=== PATIENT | female | born 1970 | race Caucasian/White ===

== ENCOUNTER 2022-11-19 13:34 | Emergency (ER) | payer OTHER, SELFPAY ==
[2022-11-19] VITALS (26 sets, daily range): BP systolic 74–144; BP diastolic 47–73; PULSE 90–110; RESP 15–27; TEMP 35.8; O2SAT 95–100; BMI 29.2
--- NOTE | 2022-11-19 13:59 | DI.RAD.S_ITS ---
PROCEDURE: XR CHEST 1V INDICATIONS: suspected sepsis TECHNIQUE: One view of the chest was acquired. COMPARISON: None. FINDINGS: Surgical changes and devices: None. Lungs and pleura: Lungs are clear. No pleural effusions or pneumothorax. Mediastinum: Mediastinal contours appear normal. Heart size is normal. Low lung volumes accentuate pulmonary interstitium and heart size. Bones and chest wall: No suspicious bony lesions. Overlying soft tissues appear unremarkable. IMPRESSION: No acute cardiopulmonary findings Approved by: Good Flores M.D. on 11/19/2022 at 14:03
[2022-11-19] MEDS: SODIUM CHLORIDE 0.9% 1,000 ML 1000 ML IV ×3 (14:00→15:36)
--- NOTE | 2022-11-19 14:10 | ED.SYNCOPE ---
HPI - Syncope General Chief Complaint: Weakness Stated Complaint: T2D, Dehydrated, Syncope 2x's Today Time Seen by Provider: 11/19/22 14:00 Source: patient Mode of arrival: Ambulatory Limitations: no limitations History of Present Illness HPI narrative: Patient is a 52-year-old female who has a history of diabetes new onset atrial fibrillation presenting today after syncopal episode. She was admitted last week for DKA in [place] she left prior to being discharged and had a syncopal episode today in the shower. She reports that she has been nauseous and has had significant decreased p.o. intake. She was in the shower she felt extremely lightheaded flushed and she knew she was going to pass out. She got out and fell down. Brief loss of consciousness. No nausea vomiting after. She denies any injury from the fall. No numbness tingling or weakness. She currently denies any chest pain or palpitations. She was supposed to have an appointment with her PCP today however due to her symptoms her PCP sent her to the emergency department. I did actually speak with her as well who has given me this information. Records have also been requested from her most recent hospitalization. is at bedside and he reports the brief loss of consciousness. She currently denies any fever or chills. Related Data Allergies Allergy/AdvReac Type Severity Reaction Status Date / Time No Known Drug Allergies Allergy Verified 11/19/22 13:40 Review of Systems Review of Systems ROS Unobtainable: All systems reviewed & are unremarkable except as noted in HPI and below Patient History Social History Smoking Status: Unknown if ever smoked Smoking Status: Unknown if ever smoked alcohol intake frequency: holidays/special occasions only Substance Use Type: does not use Exam Initial Vital Signs Initial Vital Signs: Vital Signs Temperature 96.5 F L 11/19/22 13:40 Pulse Rate 98 H 11/19/22 13:40 Respiratory Rate 16 11/19/22 13:40 Blood Pressure 75/48 L 11/19/22 13:40 Pulse Oximetry 100 11/19/22 13:40 Oxygen Delivery Method 11/19/22 13:40 GENERAL: Alert pleasant 52-year-old female and in no acute distress. HEENT: Head atraumatic,EOMI, pupils reactive, face symmetric, moist mucous membranes CARDIOVASCULAR: Regular rate and rhythm without murmurs, rubs or gallops. RESPIRATORY: Breath sounds equal bilaterally, no wheezes rales or rhonchi. ABDOMEN: Soft, nontender. Normoactive bowel sounds all 4 quadrants. No guarding or rebound. EXTREMITIES: Normal range of motion, no clubbing or edema. Neurovascularly intact NEUROLOGICAL: Alert and oriented x4.Normal gait and speech. Cranial nerves II through XII grossly intact. Good [id number], good [id number], strength equal bilaterally, no dysarthria or aphasia, sensation in tact to soft touch bilaterally, no visual changes, no facial droop SKIN: Warm, dry, no laceration, no petechiae, no rashes or lesions. Course Orders Ordered: ED Orders 11/19/22 13:51 VBG [Venous Blood Gas] Stat 11/19/22 13:59 XR chest 1V Stat RT Consult Eval and Treat NOW 11/19/22 14:07 EKG-12 Lead Stat 11/19/22 14:11 Covid-19 + FLU A/B + RSV - PCR Stat 11/19/22 14:15 Blood Culture Stat Complete Blood Count AUTO DIFF Stat Comprehensive Metabolic Panel Stat Ketones (Beta-Hydroxybutyrate) Stat Lactate (Lactic Acid) Stat Lipase Stat Partial Thromboplastin Time Stat Procalcitonin Stat Prothrombin Time INR Stat 11/19/22 14:27 CT head/brain wo con Stat 11/19/22 16:59 Urine Microscopic Stat Discontinued Medications Sodium Chloride (Normal Saline 0.9%) 1,000 mls @ 1,000 mls/hr IV BOLUS ONE Stop: 11/19/22 14:58 Last Infusion: 11/19/22 15:00 Dose: 0 mls/hr Documented By: Admin: 11/19/22 14:00 Dose: 1,000 mls/hr Documented By: CASIE Sodium Chloride (Normal Saline 0.9%) 1,000 mls @ 1,000 mls/hr IV BOLUS ONE Stop: 11/19/22 15:00 Last Infusion: 11/19/22 15:37 Dose: 0 mls/hr Documented By: Admin: 11/19/22 15:04 Dose: 1,000 mls/hr Documented By: CASIE Sodium Chloride (Normal Saline 0.9%) 1,000 mls @ 1,000 mls/hr IV BOLUS ONE Stop: 11/19/22 16:24 Last Infusion: 11/19/22 16:39 Dose: 0 mls/hr Documented By: Admin: 11/19/22 15:36 Dose: 1,000 mls/hr Documented By: CASIE Lactated Ringer's (Lactated Ringers) 1,000 mls @ 1,000 mls/hr IV BOLUS ONE Stop: 11/19/22 18:10 Last Infusion: 11/19/22 18:00 Dose: 0 mls/hr Documented By: Admin: 11/19/22 17:19 Dose: 1,000 mls/hr Documented By: CASIE Ondansetron HCl (Ondansetron 4 Mg/2 Ml Inj) 4 mg IV NOW PRN PRN Reason: Nausea And Vomiting Last Admin: 11/19/22 15:04 Dose: 4 mg Documented By: CASIE Vital Signs Vital signs: Vital Signs - 8 hr 11/19/22 13:40 11/19/22 14:00 11/19/22 14:03 Temperature 96.5 F L Pulse Rate 98 H Pulse Rate [Orthostatic Lying] Pulse Rate [Orthostatic Sitting] Pulse Rate [Orthostatic Standing] Respiratory Rate 16 Blood Pressure 75/48 L 102/73 Blood Pressure [Orthostatic Lying] Blood Pressure [Orthostatic Sitting] Blood Pressure [Orthostatic Standing] Pulse Oximetry 100 100 Oxygen Delivery Method Room Air Room Air 11/19/22 14:03 11/19/22 14:10 11/19/22 14:20 Temperature Pulse Rate 96 H 94 H Pulse Rate [Orthostatic Lying] Pulse Rate [Orthostatic Sitting] Pulse Rate [Orthostatic Standing] Respiratory Rate 22 21 Blood Pressure 74/49 L Blood Pressure [Orthostatic Lying] Blood Pressure [Orthostatic Sitting] Blood Pressure [Orthostatic Standing] Pulse Oximetry 95 100 Oxygen Delivery Method Room Air 11/19/22 14:20 11/19/22 14:24 11/19/22 14:24 Temperature Pulse Rate 93 H 90 Pulse Rate [Orthostatic Lying] Pulse Rate [Orthostatic Sitting] Pulse Rate [Orthostatic Standing] Respiratory Rate 15 21 Blood Pressure 83/51 L Blood Pressure [Orthostatic Lying] Blood Pressure [Orthostatic Sitting] Blood Pressure [Orthostatic Standing] Pulse Oximetry 99 100 Oxygen Delivery Method 11/19/22 14:25 11/19/22 14:25 11/19/22 14:28 Temperature Pulse Rate 92 H 92 H Pulse Rate [Orthostatic Lying] Pulse Rate [Orthostatic Sitting] Pulse Rate [Orthostatic Standing] Respiratory Rate 24 18 Blood Pressure 86/47 L Blood Pressure [Orthostatic Lying] Blood Pressure [Orthostatic Sitting] Blood Pressure [Orthostatic Standing] Pulse Oximetry 100 99 Oxygen Delivery Method 11/19/22 14:28 11/19/22 14:30 11/19/22 14:30 Temperature Pulse Rate 91 H Pulse Rate [Orthostatic Lying] Pulse Rate [Orthostatic Sitting] Pulse Rate [Orthostatic Standing] Respiratory Rate 20 Blood Pressure 89/51 L 89/54 L Blood Pressure [Orthostatic Lying] Blood Pressure [Orthostatic Sitting] Blood Pressure [Orthostatic Standing] Pulse Oximetry 99 Oxygen Delivery Method 11/19/22 14:32 11/19/22 14:32 11/19/22 14:40 Temperature Pulse Rate 90 Pulse Rate [Orthostatic Lying] Pulse Rate [Orthostatic Sitting] Pulse Rate [Orthostatic Standing] Respiratory Rate 19 Blood Pressure 92/55 L 95/56 L Blood Pressure [Orthostatic Lying] Blood Pressure [Orthostatic Sitting] Blood Pressure [Orthostatic Standing] Pulse Oximetry 99 Oxygen Delivery Method 11/19/22 14:40 11/19/22 14:53 11/19/22 14:55 Temperature Pulse Rate 92 H 96 H Pulse Rate [Orthostatic Lying] Pulse Rate [Orthostatic Sitting] Pulse Rate [Orthostatic Standing] Respiratory Rate 19 Blood Pressure 115/56 L Blood Pressure [Orthostatic Lying] Blood Pressure [Orthostatic Sitting] Blood Pressure [Orthostatic Standing] Pulse Oximetry 99 97 Oxygen Delivery Method 11/19/22 14:55 11/19/22 15:00 11/19/22 15:00 Temperature Pulse Rate 93 H 94 H Pulse Rate [Orthostatic Lying] Pulse Rate [Orthostatic Sitting] Pulse Rate [Orthostatic Standing] Respiratory Rate 17 22 Blood Pressure 110/57 L Blood Pressure [Orthostatic Lying] Blood Pressure [Orthostatic Sitting] Blood Pressure [Orthostatic Standing] Pulse Oximetry 100 100 Oxygen Delivery Method 11/19/22 15:10 11/19/22 15:10 11/19/22 15:20 Temperature Pulse Rate 95 H Pulse Rate [Orthostatic Lying] Pulse Rate [Orthostatic Sitting] Pulse Rate [Orthostatic Standing] Respiratory Rate 22 Blood Pressure 118/56 L 116/59 L Blood Pressure [Orthostatic Lying] Blood Pressure [Orthostatic Sitting] Blood Pressure [Orthostatic Standing] Pulse Oximetry 100 Oxygen Delivery Method Room Air 11/19/22 15:20 11/19/22 15:30 11/19/22 15:30 Temperature Pulse Rate 97 H 97 H Pulse Rate [Orthostatic Lying] Pulse Rate [Orthostatic Sitting] Pulse Rate [Orthostatic Standing] Respiratory Rate 17 18 Blood Pressure 116/60 Blood Pressure [Orthostatic Lying] Blood Pressure [Orthostatic Sitting] Blood Pressure [Orthostatic Standing] Pulse Oximetry 100 100 Oxygen Delivery Method Room Air Room Air 11/19/22 15:37 11/19/22 15:37 11/19/22 15:40 Temperature Pulse Rate 100 H Pulse Rate [Orthostatic Lying] Pulse Rate [Orthostatic Sitting] Pulse Rate [Orthostatic Standing] Respiratory Rate 20 Blood Pressure 111/60 104/55 L Blood Pressure [Orthostatic Lying] Blood Pressure [Orthostatic Sitting] Blood Pressure [Orthostatic Standing] Pulse Oximetry 100 Oxygen Delivery Method Room Air 11/19/22 15:40 11/19/22 15:50 11/19/22 15:50 Temperature Pulse Rate 98 H 100 H Pulse Rate [Orthostatic Lying] Pulse Rate [Orthostatic Sitting] Pulse Rate [Orthostatic Standing] Respiratory Rate 20 18 Blood Pressure 128/60 Blood Pressure [Orthostatic Lying] Blood Pressure [Orthostatic Sitting] Blood Pressure [Orthostatic Standing] Pulse Oximetry 100 98 Oxygen Delivery Method Room Air Room Air 11/19/22 16:00 11/19/22 16:00 11/19/22 16:30 Temperature Pulse Rate 101 H Pulse Rate [Orthostatic Lying] Pulse Rate [Orthostatic Sitting] Pulse Rate [Orthostatic Standing] Respiratory Rate 27 H Blood Pressure 130/64 125/65 Blood Pressure [Orthostatic Lying] Blood Pressure [Orthostatic Sitting] Blood Pressure [Orthostatic Standing] Pulse Oximetry 100 Oxygen Delivery Method Room Air 11/19/22 16:30 11/19/22 16:40 11/19/22 16:40 Temperature Pulse Rate 102 H 100 H Pulse Rate [Orthostatic Lying] Pulse Rate [Orthostatic Sitting] Pulse Rate [Orthostatic Standing] Respiratory Rate 18 18 Blood Pressure 113/60 Blood Pressure [Orthostatic Lying] Blood Pressure [Orthostatic Sitting] Blood Pressure [Orthostatic Standing] Pulse Oximetry 100 99 Oxygen Delivery Method Room Air 11/19/22 16:43 11/19/22 16:43 11/19/22 16:46 Temperature Pulse Rate 103 H Pulse Rate [Orthostatic Lying] Pulse Rate [Orthostatic Sitting] Pulse Rate [Orthostatic Standing] Respiratory Rate 17 Blood Pressure 110/58 L 93/52 L Blood Pressure [Orthostatic Lying] Blood Pressure [Orthostatic Sitting] Blood Pressure [Orthostatic Standing] Pulse Oximetry 100 Oxygen Delivery Method 11/19/22 16:46 11/19/22 18:06 Temperature Pulse Rate 108 H Pulse Rate [Orthostatic Lying] 103 H Pulse Rate [Orthostatic Sitting] 104 H Pulse Rate [Orthostatic Standing] 110 H Respiratory Rate 18 Blood Pressure Blood Pressure [Orthostatic Lying] 144/68 H Blood Pressure [Orthostatic Sitting] 128/67 Blood Pressure [Orthostatic Standing] 116/60 Pulse Oximetry 100 Oxygen Delivery Method MDM - Syncope Lab Data Result diagrams: 11/19/22 14:15 11/19/22 14:15 Labs: Lab Results 11/19/22 11/19/22 11/19/22 Range/Units 13:51 14:11 14:15 WBC 9.9 (4.5-11.0) X10^3/uL RBC 5.63 H (4.0-5.2) X10^6/uL Hgb 16.6 H (12.0-16.0) g/dL Hct 47.9 H (36-46) % MCV 85.2 (80-100) fL MCH 29.5 (26-34) PG MCHC 34.7 (30-36) % RDW 13.8 (11.6-14.8) % Plt Count 209 (150-400) X10^3/uL Neut % (Auto) 71.0 (50-75) % Lymph % (Auto) 19.4 L (25-40) % Rogers % (Auto) 8.8 (3-14) % Eos % (Auto) 0.5 L (2-4) % Baso % (Auto) 0.3 (0-2) % Neut # (Auto) 7000 (7250-4902) /uL Lymph # (Auto) 1900 (3700-8146) /uL Rogers # (Auto) 900 (0-900) /uL Eos # (Auto) 100 (0-450) /uL Baso # (Auto) 0 (0-100) /uL PT (10.1-12.7) SECONDS INR (0.9-1.3) APTT (26-36) SECONDS VBG pH 7.43 (7.33-7.43) VBG pCO2 29.1 L (45-50) mmHg VBG pO2 43 (35-45) mmHg VBG HCO3 19 L (23-28) mmol/L VBG Total CO2 20 L (24-29) mmol/L VBG O2 Saturation 80 H (70-75) % VBG Base Excess -5.0 L (0-4) mmol/L Sodium (137-145) mmol/L Potassium (3.4-5.1) mmol/L Chloride (98-107) mmol/L Carbon Dioxide (22-32) mmol/L BUN (7-17) mg/dL Creatinine (0.52-1.04) mg/dL Estimated GFR (>60) mL/min BUN/Creatinine Ratio (6-22) Glucose (70-100) mg/dL Lactate (0.7-2.1) mmol/L Calcium (8.4-10.2) mg/dL Total Bilirubin (0.2-1.3) mg/dL AST (14-36) IU/L ALT (<35) IU/L Alkaline Phosphatase (38-126) U/L Total Protein (6.3-8.2) g/dL Albumin (3.5-5.0) g/dL Globulin (1.7-4.1) g/dL Albumin/Globulin Ratio (1.0-2.8) Lipase (23-300) U/L Procalcitonin (<0.5) ng/mL Urine RBC (0-5/HPF) Urine WBC (0-5/HPF) Ur Squamous Epith Cells (0-5/HPF) Urine Bacteria (None) Ur Culture Indicated? Ketones (<0.27) mmol/L SARS-CoV-2 (PCR) Negative (Negative) Influenza A (RT-PCR) Flu a negative (NEGATIVE) Influenza B (RT-PCR) Flu b negative (NEGATIVE) RSV (PCR) Negative (Negative) 11/19/22 11/19/22 11/19/22 Range/Units 14:15 14:15 14:15 WBC (4.5-11.0) X10^3/uL RBC (4.0-5.2) X10^6/uL Hgb (12.0-16.0) g/dL Hct (36-46) % MCV (80-100) fL MCH (26-34) PG MCHC (30-36) % RDW (11.6-14.8) % Plt Count (150-400) X10^3/uL Neut % (Auto) (50-75) % Lymph % (Auto) (25-40) % Rogers % (Auto) (3-14) % Eos % (Auto) (2-4) % Baso % (Auto) (0-2) % Neut # (Auto) (9342-3260) /uL Lymph # (Auto) (8357-9982) /uL Rogers # (Auto) (0-900) /uL Eos # (Auto) (0-450) /uL Baso # (Auto) (0-100) /uL PT 11.8 (10.1-12.7) SECONDS INR 1.0 (0.9-1.3) APTT 29 (26-36) SECONDS VBG pH (7.33-7.43) VBG pCO2 (45-50) mmHg VBG pO2 (35-45) mmHg VBG HCO3 (23-28) mmol/L VBG Total CO2 (24-29) mmol/L VBG O2 Saturation (70-75) % VBG Base Excess (0-4) mmol/L Sodium 131 L (137-145) mmol/L Potassium 3.5 (3.4-5.1) mmol/L Chloride 94 L (98-107) mmol/L Carbon Dioxide 23 (22-32) mmol/L BUN 27 H (7-17) mg/dL Creatinine 1.28 H (0.52-1.04) mg/dL Estimated GFR 50 L (>60) mL/min BUN/Creatinine Ratio 21.1 (6-22) Glucose 193 H (70-100) mg/dL Lactate 1.7 (0.7-2.1) mmol/L Calcium 9.2 (8.4-10.2) mg/dL Total Bilirubin 1.8 H (0.2-1.3) mg/dL AST 22 (14-36) IU/L ALT 12 (<35) IU/L Alkaline Phosphatase 78 (38-126) U/L Total Protein 7.5 (6.3-8.2) g/dL Albumin 4.4 (3.5-5.0) g/dL Globulin 3.1 (1.7-4.1) g/dL Albumin/Globulin Ratio 1.4 (1.0-2.8) Lipase 146 (23-300) U/L Procalcitonin 0.06 (<0.5) ng/mL Urine RBC (0-5/HPF) Urine WBC (0-5/HPF) Ur Squamous Epith Cells (0-5/HPF) Urine Bacteria (None) Ur Culture Indicated? Ketones (<0.27) mmol/L SARS-CoV-2 (PCR) (Negative) Influenza A (RT-PCR) (NEGATIVE) Influenza B (RT-PCR) (NEGATIVE) RSV (PCR) (Negative) 11/19/22 11/19/22 Range/Units 14:15 16:59 WBC (4.5-11.0) X10^3/uL RBC (4.0-5.2) X10^6/uL Hgb (12.0-16.0) g/dL Hct (36-46) % MCV (80-100) fL MCH (26-34) PG MCHC (30-36) % RDW (11.6-14.8) % Plt Count (150-400) X10^3/uL Neut % (Auto) (50-75) % Lymph % (Auto) (25-40) % Rogers % (Auto) (3-14) % Eos % (Auto) (2-4) % Baso % (Auto) (0-2) % Neut # (Auto) (1783-8017) /uL Lymph # (Auto) (9567-0965) /uL Rogers # (Auto) (0-900) /uL Eos # (Auto) (0-450) /uL Baso # (Auto) (0-100) /uL PT (10.1-12.7) SECONDS INR (0.9-1.3) APTT (26-36) SECONDS VBG pH (7.33-7.43) VBG pCO2 (45-50) mmHg VBG pO2 (35-45) mmHg VBG HCO3 (23-28) mmol/L VBG Total CO2 (24-29) mmol/L VBG O2 Saturation (70-75) % VBG Base Excess (0-4) mmol/L Sodium (137-145) mmol/L Potassium (3.4-5.1) mmol/L Chloride (98-107) mmol/L Carbon Dioxide (22-32) mmol/L BUN (7-17) mg/dL Creatinine (0.52-1.04) mg/dL Estimated GFR (>60) mL/min BUN/Creatinine Ratio (6-22) Glucose (70-100) mg/dL Lactate (0.7-2.1) mmol/L Calcium (8.4-10.2) mg/dL Total Bilirubin (0.2-1.3) mg/dL AST (14-36) IU/L ALT (<35) IU/L Alkaline Phosphatase (38-126) U/L Total Protein (6.3-8.2) g/dL Albumin (3.5-5.0) g/dL Globulin (1.7-4.1) g/dL Albumin/Globulin Ratio (1.0-2.8) Lipase (23-300) U/L Procalcitonin (<0.5) ng/mL Urine RBC 0-1/hpf (0-5/HPF) Urine WBC 1-5/hpf (0-5/HPF) Ur Squamous Epith Cells 1-5 /hpf (0-5/HPF) Urine Bacteria Few (2-10) H (None) Ur Culture Indicated? Cult not indicated Ketones 2.09 H (<0.27) mmol/L SARS-CoV-2 (PCR) (Negative) Influenza A (RT-PCR) (NEGATIVE) Influenza B (RT-PCR) (NEGATIVE) RSV (PCR) (Negative) Urine Dip Bedside Urine Glucose Negative Bedside Urine Bilirubin - Negative Bedside Urine Ketone +/- 5 Urine Specific Mittie 1.015 Bedside Urine Occult Blood + Bedside Urine pH 6.0 Bedside Urine Protein - Negative Bedside Urine Urobilinogen - Negative Bedside Urine Nitrite - Negative Bedside Urine Leukocytes - Negative Esterase Imaging Data Chest x-ray: Radiologist's Impression: XRay Report Signed Patient: Tayler Woo MR#: [id number] : 1970 Acct:[id number] Age/Sex: 52 / F Date of Service: 11/19/22 Loc: ED Accession Number: [id number] ?? Procedure: XR chest 1V Ordering Provider: Ny Aburto D.O. PROCEDURE:? XR CHEST 1V ? INDICATIONS:? suspected sepsis ? TECHNIQUE:? One view of the chest was acquired.? ? COMPARISON:? None. ? FINDINGS:? ? Surgical changes and devices:? None.? ? Lungs and pleura:? Lungs are clear.? No pleural effusions or pneumothorax.? ? Mediastinum:? Mediastinal contours appear normal.? Heart size is normal.? Low lung volumes accentuate pulmonary interstitium and heart size. ? Bones and chest wall:? No suspicious bony lesions.? Overlying soft tissues appear unremarkable.? ? IMPRESSION:? ? No acute cardiopulmonary findings ? ? ? Approved by: Good Flores M.D. on 11/19/2022 at 14:03? CT scan - head: Radiologist's Impression: XRay Report Signed Patient: Tayler Woo MR#: [id number] : 1970 Acct:[id number] Age/Sex: 52 / F Date of Service: 11/19/22 Loc: ED Accession Number: [id number] ?? Procedure: XR chest 1V Ordering Provider: Ny Aburto D.O. PROCEDURE:? XR CHEST 1V ? INDICATIONS:? suspected sepsis ? TECHNIQUE:? One view of the chest was acquired.? ? COMPARISON:? None. ? FINDINGS:? ? Surgical changes and devices:? None.? ? Lungs and pleura:? Lungs are clear.? No pleural effusions or pneumothorax.? ? Mediastinum:? Mediastinal contours appear normal.? Heart size is normal.? Low lung volumes accentuate pulmonary interstitium and heart size. ? Bones and chest wall:? No suspicious bony lesions.? Overlying soft tissues appear unremarkable.? ? IMPRESSION:? ? No acute cardiopulmonary findings ? ? ? Approved by: Good Flores M.D. on 11/19/2022 at 14:03? ECG Data Interpretation: Normal sinus rhythm rate 97 SC interval 180 QRS 76 QTC 500 slightly peaked T-waves no ST changes MDM Narrative Medical decision making narrative: Patient is a 52-year-old female with insulin-dependent diabetes recent admission with new onset atrial fibrillation presenting today with a syncopal episode. She is found to be very hypotensive. She is not had very much to eat or drink. Hemoglobin is 16.6 with hematocrit of 47.9 likely hemoconcentrated, also BUN 27 with creatinine of 1.28 showing signs of dehydration. She received 2 L of normal saline blood pressure did improve. She actually ambulated to the restroom returned with feeling better however the nurse rechecked her vitals and she was hypotensive again. She received more fluid blood pressure remained stable. I suspect the patient is dehydrated secondary to poor intake and ongoing nausea. She has Reglan and Compazine at home she says she did not take it his she just felt like she was going to throw up but knows now that she can take it. She is drinking fluids. She is no focal deficits head CT is negative no sign of stroke. Symptoms and pressure improve with fluids. She is not hypoxic or tachycardic she is not on any medication to cause blunting in her cardiac response. He is no evidence of DKA her pH is 7.4 in her anion gap is 14. At this time patient feels better there is no indication for readmission to the hospital. I did discuss case initially with her PCP but did not update her PCP with the findings. She will follow-up with her in the office. Discharge Plan Departure Patient Disposition: Home Clinical Impression: Acute dehydration Instructions: DI for Dehydration -- Adult Activity Restrictions/Additional Instructions: *You have been diagnosed with dehydration *What to do: Increase fluids as tolerated, please stay hydrated *Continue to take medications as directed Take all medications as directed *Follow up with your primary care provider in 2-3 days or call [phone] *Return to ER if you should have not able to tolerate fluids persistent vomiting dizziness lightheadedness passing out chest pain or any new, worsening or concerning symptoms Referrals: Miscellaneous,Doctor, MD [Primary Care Provider] - Stand Alone Forms: Patient Portal/API
--- NOTE | 2022-11-19 14:27 | DI.CT.S_ITS ---
PROCEDURE: CT HEAD/BRAIN WO CON INDICATIONS: syncope TECHNIQUE: Noncontrast 4.5 mm thick angled axial sections acquired from the foramen magnum to the vertex, with coronal and sagittal reformats. For radiation dose reduction, the following was used: automated exposure control, adjustment of mA and/or kV according to patient size. COMPARISON: None. FINDINGS: Image quality: Excellent. CSF spaces: Basal cisterns are patent. No extra-axial fluid collections. Ventricles are normal in size and shape. Brain: No midline shift. No intracranial masses or hemorrhage. Rojo-white matter interface is normal. Skull and face: Calvarium and visualized facial bones are intact, without suspicious lesions. Sinuses: Visualized sinuses and mastoids are clear. IMPRESSION: Normal CT of the brain Approved by: Good Flores M.D. on 11/19/2022 at 14:39
[2022-11-19 14:38] LABS: Prothrombin Time 11.8 SECONDS (10.1-12.7)
[2022-11-19 14:41] LABS: HCO3 VBG 19 mmol/L (23-28); PCO2 VBG 29.1 mmHg (45-50); PO2 VBG 43 mmHg (35-45); pH VBG 7.43 (7.33-7.43)
[2022-11-19 14:41] LABS: Alanine Aminotransferase 12 IU/L (<35); Albumin 4.4 g/dL (3.5-5.0); Albumin Globulin Ratio 1.4 (1.0-2.8); Alkaline Phosphatase 78 U/L (38-126); Aspartate Aminotransferase 22 IU/L (14-36); BUN Creatinine Ratio 21.1 (6-22); Basophils Absolute Auto 0 /uL (0-100); Bilirubin Total 1.8 mg/dL (0.2-1.3); Blood Urea Nitrogen 27 mg/dL (7-17); Calcium 9.2 mg/dL (8.4-10.2); Carbon Dioxide 23 mmol/L (22-32); Chloride 94 mmol/L (98-107); Eosinophils Absolute Auto 100 /uL (0-450); Estimated Glomerular Filt Rate 50 mL/min (>60); Globulin 3.1 g/dL (1.7-4.1); Glucose 193 mg/dL (70-100); HEMOLYSIS < 15 (0-50); Lactate (Lactic Acid) 1.7 mmol/L (0.7-2.1); Lipase 146 U/L (23-300); Lymphocytes Absolute Auto 1900 /uL (1100-4500); Monocytes Absolute Auto 900 /uL (0-900); PTT Partial Thromboplastin Tim 29 SECONDS (26-36); Potassium 3.5 mmol/L (3.4-5.1); Sodium 131 mmol/L (137-145); Total Protein 7.5 g/dL (6.3-8.2)
[2022-11-19 14:42] LABS: Oxygen Saturation VBG 80 % (70-75); Total CO2 VBG 20 mmol/L (24-29)
[2022-11-19 14:43] LABS: Ketones (Beta-Hydroxybutyrate) 2.09 mmol/L (<0.27)
[2022-11-19 14:47] LABS: Add Manual Diff / Slide Review NO; Basophils Percent Auto 0.3 % (0-2); Eosinophils Percent Auto 0.5 % (2-4); Hematocrit 47.9 % (36-46); Hemoglobin 16.6 g/dL (12.0-16.0); Lymphocytes Percent Auto 19.4 % (25-40); Mean Corpuscular HGB Conc 34.7 % (30-36); Mean Corpuscular Hemoglobin 29.5 PG (26-34); Mean Corpuscular Volume 85.2 fL (80-100); Monocytes Percent Auto 8.8 % (3-14); Neutrophils Absolute Auto 7000 /uL (1500-7000); Platelet Count 209 X10^3/uL (150-400); Red Blood Cell Count 5.63 X10^6/uL (4.0-5.2); Red Cell Distribution Width 13.8 % (11.6-14.8); White Blood Cell Count 9.9 X10^3/uL (4.5-11.0)
[2022-11-19 14:58] LABS: Influenza A - CEPHEID Flu A NEGATIVE (NEGATIVE); Influenza B - CEPHEID Flu B NEGATIVE (NEGATIVE); Respiratory Syncytial Virus Negative (Negative)
[2022-11-19 14:58] LABS: Procalcitonin 0.06 ng/mL (<0.5)
[2022-11-19] MEDS: ONDANSETRON 4 MG/2 ML INJ IV (15:04)
[2022-11-19 15:17] LABS: COVID-19 CEPHEID 4-PLEX PCR Negative (Negative)
[2022-11-19] MEDS: LACTATED RINGERS 1,000 ML 1000 ML IV (17:19)
[2022-11-19 17:33] LABS: Bacteria Urine Few (2-10); Culture Indicated Urine Cult Not Indicated; RBC Urine 0-1/HPF (0-5/HPF); Squamous Epithelial Cell Urine 1-5 /HPF (0-5/HPF); WBC Urine 1-5/HPF (0-5/HPF)
== END 2022-11-19 18:22 | disposition home or self-care (01) ==
PROVIDERS: Emergency Provider Emergency Medicine
DX: E86.0 Dehydration (principal); I95.9 Hypotension, unspecified; R11.0 Nausea; Z20.822 Contact with and (suspected) exposure to COVID-19
CPT/HCPCS: 0241U; 36415; 70450; 71045; 80053; 81003; 81015; 82009; 82805; 83605; 83690; 84145; 85025; 85610; 85730; 87040; 93005; 93010; 96361; 96374; 99284; J2405

== ENCOUNTER 2022-11-21 10:19 | Emergency (ER) | payer OTHER, SELFPAY ==
[2022-11-21] VITALS (54 sets, daily range): BP systolic 58–178; BP diastolic 28–98; PULSE 92–117; RESP 11–28; TEMP 36.3; O2SAT 89–100; BMI 30.8
[2022-11-21] MEDS: ONDANSETRON 4 MG/2 ML INJ IV ×2 (11:11→12:31)
[2022-11-21] MEDS: SODIUM CHLORIDE 0.9% 1,000 ML 1000 ML IV (11:11)
[2022-11-21 11:28] LABS: Add Manual Diff / Slide Review NO; Basophils Absolute Auto 0 /uL (0-100); Basophils Percent Auto 0.4 % (0-2); Eosinophils Absolute Auto 0 /uL (0-450); Eosinophils Percent Auto 0.3 % (2-4); Hematocrit 43.6 % (36-46); Hemoglobin 15.4 g/dL (12.0-16.0); Lymphocytes Absolute Auto 1000 /uL (1100-4500); Mean Corpuscular HGB Conc 35.2 % (30-36); Mean Corpuscular Hemoglobin 29.4 PG (26-34); Mean Corpuscular Volume 83.4 fL (80-100); Monocytes Absolute Auto 600 /uL (0-900); Monocytes Percent Auto 10.6 % (3-14); Neutrophils Absolute Auto 3800 /uL (1500-7000); Neutrophils Percent Auto 69.7 % (50-75); Platelet Count 227 X10^3/uL (150-400); Red Blood Cell Count 5.23 X10^6/uL (4.0-5.2); Red Cell Distribution Width 13.8 % (11.6-14.8); White Blood Cell Count 5.5 X10^3/uL (4.5-11.0)
[2022-11-21 11:36] LABS: Prothrombin Time 11.9 SECONDS (10.1-12.7)
[2022-11-21 11:38] LABS: PTT Partial Thromboplastin Tim 24 SECONDS (26-36)
[2022-11-21 11:42] LABS: Alanine Aminotransferase 15 IU/L (<35); Albumin Globulin Ratio 1.3 (1.0-2.8); Alkaline Phosphatase 68 U/L (38-126); Aspartate Aminotransferase 29 IU/L (14-36); BUN Creatinine Ratio 14.7 (6-22); Bilirubin Total 1.2 mg/dL (0.2-1.3); Blood Urea Nitrogen 5 mg/dL (7-17); Calcium 8.4 mg/dL (8.4-10.2); Carbon Dioxide 24 mmol/L (22-32); Chloride 96 mmol/L (98-107); Creatine Kinase 134 U/L (30-135); Estimated Glomerular Filt Rate > 60 mL/min (>60); Glucose 177 mg/dL (70-100); Lipase 79 U/L (23-300); Magnesium 1.4 mg/dL (1.6-2.3); Potassium 3.4 mmol/L (3.4-5.1); Sodium 130 mmol/L (137-145)
[2022-11-21 11:53] LABS: Troponin I 0.185 ng/mL (0.01-0.034)
[2022-11-21 11:54] LABS: Ketones (Beta-Hydroxybutyrate) 0.94 mmol/L (<0.27)
[2022-11-21 11:58] LABS: CKMB % Relative Index 1.5 % (1.5-5.0); Creatine Kinase MB 2.03 ng/mL (<2.37); HEMOLYSIS 50 (0-50)
--- NOTE | 2022-11-21 12:01 | ED.GENADULT ---
HPI - General Adult <Ny Aburto DO - Last Filed: 11/24/22 17:36> General Chief complaint: Diabetic Problem Stated complaint: nausea, vomiting Time Seen by Provider: 11/21/22 12:01 Source: patient Mode of arrival: Ambulatory History of Present Illness HPI narrative: Patient is a 52-year-old female history of diabetes, recent diagnosis of atrial fibrillation presenting today with nausea and vomiting. She was admitted last week for DKA and new atrial fbirillation, and then was seen in the ED by myself on 11/19/2022 for dehydration. She required multiple L of fluids that time she was hypotensive with an elevated creatinine. However she stabilized and was discharged home. She reports that yesterday she was feeling good however last night she started vomiting and has really been unable to stop. He has anti nausea medications at home but has been unable take them. She will like there is burning in her chest but no real abdominal pain. No fevers or chills. Related Data Home Medications Medication Instructions Recorded Confirmed aspirin 81 mg chewable tablet 81 mg PO DAILY 11/21/22 11/21/22 famotidine 20 mg tablet 20 mg PO BID 11/21/22 11/21/22 insulin glargine 100 unit/mL 20 unit SUBCUT QPM 11/21/22 11/21/22 subcutaneous cartridge insulin lispro 100 unit/mL 4 unit SUBCUT TID 11/21/22 11/21/22 subcutaneous cartridge lisinopril 20 mg tablet 20 mg PO DAILY 11/21/22 11/21/22 metoclopramide HCl 5 mg tablet 5 mg PO Q6HR PRN Nausea 11/21/22 11/21/22 (Reglan) prochlorperazine maleate 5 mg 5 mg PO TID PRN Nausea 11/21/22 11/21/22 tablet (Compazine) Previous Rx's Medication Instructions Recorded atorvastatin 80 mg tablet 80 mg PO BEDTIME #30 tabs 11/24/22 clopidogrel 75 mg tablet (Plavix) 75 mg PO DAILY #30 tabs 11/24/22 lisinopril 20 mg tablet 20 mg PO DAILY #30 tabs 11/24/22 metoprolol succinate 25 mg 25 mg PO DAILY #30 tabs 11/24/22 tablet,extended release 24 hr Allergies Allergy/AdvReac Type Severity Reaction Status Date / Time No Known Drug Allergies Allergy Verified 11/21/22 10:43 <Bob Sullivan DO - Last Filed: 11/26/22 10:14> Review of Systems Narrative: GENERAL: see HPI HEENT: Denies sinus pain, ear pain, sore throat, difficulty swallowing, dizziness. RESPIRATORY: Denies dyspnea, cough, wheezing, hemoptysis, sputum. CARDIOVASCULAR: see HPI GASTROINTESTINAL: see HPI : Denies dysuria, frequency, incontinence, hematuria, urinary retention. MUSCULOSKELETAL: denies weakness, joint pain, or bony pain SKIN: Denies rash, skin lesions, or other NEUROLOGIC: Denies weakness, headache, numbness, change in speech, confusion, seizures, incoordination. PSYCHIATRIC: No concerning psychosocial issues. 12 point review of systems is negative except for those stated above Patient History <Ny Aburto DO - Last Filed: 11/24/22 17:36> Social History Smoking Status: Never smoker Smoking Status: Never smoker alcohol intake frequency: holidays/special occasions only Substance Use Type: does not use Exam <Ny Aburto DO - Last Filed: 11/24/22 17:36> Initial Vital Signs Initial Vital Signs: Vital Signs Temperature 97.3 F L 11/21/22 10:39 Pulse Rate 117 H 11/21/22 10:39 Respiratory Rate 20 11/21/22 10:39 Blood Pressure 134/93 H 11/21/22 10:39 Pulse Oximetry 99 11/21/22 10:39 Oxygen Delivery Method 11/21/22 10:39 GENERAL: Alert 52-year-old female appears uncomfortable HEENT: Head atraumatic,EOMI, pupils reactive, face symmetric, Dry mucous membranes CARDIOVASCULAR: Tachycardic regular no murmur RESPIRATORY: Breath sounds equal bilaterally, no wheezes rales or rhonchi. ABDOMEN: Soft, slightly tender in epigastric region no guarding no rebound abdomen is not distended EXTREMITIES: Normal range of motion, no clubbing or edema. Neurovascularly intact NEUROLOGICAL: Alert and oriented x4.Normal gait and speech. Cranial nerves II through XII grossly intact. SKIN: Contusion noted left lower quadrant of abdomen <Bob Sullivan DO - Last Filed: 11/26/22 10:14> Initial Vital Signs Initial Vital Signs: Vital Signs Temperature 97.3 F L 11/21/22 10:39 Pulse Rate 117 H 11/21/22 10:39 Respiratory Rate 20 11/21/22 10:39 Blood Pressure 134/93 H 11/21/22 10:39 Pulse Oximetry 99 11/21/22 10:39 Oxygen Delivery Method 11/21/22 10:39 <Arjun Stevenson DO - Last Filed: 11/23/22 18:27> Initial Vital Signs Initial Vital Signs: Vital Signs Temperature 97.3 F L 11/21/22 10:39 Pulse Rate 117 H 11/21/22 10:39 Respiratory Rate 20 11/21/22 10:39 Blood Pressure 134/93 H 11/21/22 10:39 Pulse Oximetry 99 11/21/22 10:39 Oxygen Delivery Method 11/21/22 10:39 <Pierce Mann MD - Last Filed: 11/29/22 18:03> Initial Vital Signs Initial Vital Signs: Vital Signs Temperature 97.3 F L 11/21/22 10:39 Pulse Rate 117 H 11/21/22 10:39 Respiratory Rate 20 11/21/22 10:39 Blood Pressure 134/93 H 11/21/22 10:39 Pulse Oximetry 99 11/21/22 10:39 Oxygen Delivery Method 11/21/22 10:39 Course <Ny Aburto DO - Last Filed: 11/24/22 17:36> Orders Ordered: Discontinued Medications Aspirin (Aspirin Ec 81 Mg Tablet) 324 mg PO NOW ONE Stop: 11/21/22 12:24 Last Admin: 11/21/22 12:31 Dose: 324 mg Documented By: ARTHUR Aspirin (Aspirin 81 Mg Chew Tab) 324 mg PO NOW ONE Stop: 11/21/22 16:42 Last Admin: 11/21/22 17:46 Dose: Not Given Documented By: ARTHUR Atorvastatin Calcium (Atorvastatin 20 Mg Tablet) 80 mg PO DAILY [facility] Last Admin: 11/24/22 08:13 Dose: 80 mg Documented By: Admin: 11/23/22 10:12 Dose: 80 mg Documented By: Admin: 11/22/22 09:36 Dose: 80 mg Documented By: DAVION Clopidogrel Bisulfate (Clopidogrel 75 Mg Tablet) 75 mg PO NOW ONE Stop: 11/24/22 10:10 Last Admin: 11/24/22 11:14 Dose: 75 mg Documented By: BOBY Heparin Sodium (Porcine) (Heparin 5,000 Unit/Ml Vial) 5,000 unit IV NOW ONE Stop: 11/21/22 14:31 Last Admin: 11/21/22 14:56 Dose: 5,000 unit Documented By: ARTHUR Sodium Chloride (Normal Saline 0.9%) 1,000 mls @ 1,000 mls/hr IV BOLUS ONE Stop: 11/21/22 11:49 Last Infusion: 11/21/22 12:24 Dose: 0 mls/hr Documented By: Admin: 11/21/22 11:11 Dose: 1,000 mls/hr Documented By: MIGDALIA Sodium Chloride (Normal Saline 0.9%) 1,000 mls @ 150 mls/hr IV NOW ONE Stop: 11/21/22 20:40 Last Admin: 11/21/22 16:02 Dose: Not Given Documented By: ARTHUR Heparin Sodium/Dextrose (Heparin Drip) 25,000 unit in 500 mls @ 20 mls/hr IV CONT OPAL; Protocol Last Titration: 11/24/22 10:52 Dose: 0 units/hr, 0 mls/hr Documented By: Titration: 11/24/22 10:49 Dose: 0 units/hr, 0 mls/hr Documented By: Titration: 11/24/22 08:28 Dose: 850 units/hr, 17 mls/hr Documented By: Admin: 11/23/22 18:44 Dose: 900 units/hr, 18 mls/hr Documented By: Titration: 11/23/22 18:44 Dose: 900 units/hr, 18 mls/hr Documented By: Admin: 11/22/22 16:52 Dose: 900 units/hr, 18 mls/hr Documented By: Titration: 11/22/22 16:52 Dose: 900 units/hr, 18 mls/hr Documented By: Titration: 11/21/22 22:56 Dose: 900 units/hr, 18 mls/hr Documented By: Titration: 11/21/22 22:20 Dose: 0 units/hr, 0 mls/hr Documented By: Admin: 11/21/22 14:56 Dose: 1,000 units/hr, 20 mls/hr Documented By: ARTHUR Magnesium Sulfate (Magnesium Sulfate) 2 gm in 50 mls @ 25 mls/hr IV NOW ONE Stop: 11/21/22 18:43 Last Infusion: 11/21/22 19:22 Dose: 0 mls/hr Documented By: ARTHUR Co-signed By: MLM Admin: 11/21/22 17:13 Dose: 25 mls/hr Documented By: ARTHUR Co-signed By: MIGDALIA Sodium Chloride (Normal Saline 0.9%) 500 mls @ 1,000 mls/hr IV BOLUS ONE Stop: 11/21/22 23:54 Last Infusion: 11/22/22 00:31 Dose: 0 mls/hr Documented By: Admin: 11/21/22 23:54 Dose: 1,000 mls/hr Documented By: ARTHUR POTASSIUM CHLORIDE IN WATER (Potassium Cl 10 Meq/100 Ml Dina) 10 meq in 100 mls @ 100 mls/hr IV Q1H OPAL Stop: 11/22/22 04:14 Last Infusion: 11/22/22 04:45 Dose: 0 mls/hr Documented By: Admin: 11/22/22 03:44 Dose: 100 mls/hr Documented By: Infusion: 11/22/22 03:24 Dose: 100 mls/hr Documented By: Admin: 11/22/22 02:24 Dose: 100 mls/hr Documented By: Infusion: 11/22/22 02:21 Dose: 100 mls/hr Documented By: Admin: 11/22/22 01:21 Dose: 100 mls/hr Documented By: Infusion: 11/22/22 01:15 Dose: 100 mls/hr Documented By: Admin: 11/22/22 00:15 Dose: 100 mls/hr Documented By: ARTHUR POTASSIUM CHLORIDE IN WATER (Potassium Cl 10 Meq/100 Ml Dina) 10 meq in 100 mls @ 100 mls/hr IV Q1H OPAL Stop: 11/23/22 09:29 Last Infusion: 11/23/22 10:56 Dose: 0 mls/hr Documented By: Admin: 11/23/22 10:01 Dose: 100 mls/hr Documented By: Infusion: 11/23/22 09:07 Dose: 100 mls/hr Documented By: Admin: 11/23/22 08:07 Dose: 100 mls/hr Documented By: DAVION Insulin Glargine (Insulin Glargine 100 Unit/Ml 3ml Pen) 10 unit SUBCUT BEDTIME [facility] Last Admin: 11/23/22 21:12 Dose: 10 unit Documented By: JOCY Co-signed By: MARCEL Admin: 11/22/22 21:40 Dose: 10 unit Documented By: KEVIN Co-signed By: HORACE Admin: 11/21/22 23:09 Dose: Not Given Documented By: ARTHUR Insulin Human Lispro (Insulin Lispro 100 Unit/Ml 3ml Vial) 0 unit SUBCUT ACHS [facility]; Protocol Last Admin: 11/24/22 15:08 Dose: Not Given Documented By: Admin: 11/24/22 07:53 Dose: Not Given Documented By: Admin: 11/23/22 21:12 Dose: Not Given Documented By: Admin: 11/23/22 18:39 Dose: 2 unit Documented By: DAIVON Co-signed By: HORACE Admin: 11/23/22 13:42 Dose: 1 unit Documented By: DAVION Co-signed By: DAVION(2) Admin: 11/23/22 10:05 Dose: 1 unit Documented By: DAVION Co-signed By: DAVION(3) Admin: 11/22/22 21:42 Dose: Not Given Documented By: Admin: 11/22/22 17:01 Dose: Not Given Documented By: Admin: 11/22/22 17:00 Dose: Not Given Documented By: Admin: 11/22/22 09:33 Dose: 1 unit Documented By: DAVION Co-signed By: BOBY Admin: 11/21/22 23:09 Dose: Not Given Documented By: ARTHUR Lisinopril (Lisinopril 20 Mg Tablet) 20 mg PO DAILY [facility] Last Admin: 11/24/22 08:14 Dose: 20 mg Documented By: Admin: 11/23/22 10:09 Dose: 20 mg Documented By: Admin: 11/22/22 09:37 Dose: 20 mg Documented By: DAVION Metoclopramide HCl (Metoclopramide 10 Mg/2 Ml Inj) 10 mg IV NOW ONE Stop: 11/21/22 15:14 Last Admin: 11/21/22 15:16 Dose: 10 mg Documented By: ARTHUR Metoprolol Succinate (Metoprolol Er 25 Mg Tablet) 25 mg PO DAILY [facility] Last Admin: 11/24/22 08:14 Dose: 25 mg Documented By: Admin: 11/23/22 10:12 Dose: 25 mg Documented By: Admin: 11/22/22 09:36 Dose: 25 mg Documented By: DAVION Ondansetron HCl (Ondansetron 4 Mg/2 Ml Inj) 4 mg IV NOW ONE Stop: 11/21/22 10:51 Last Admin: 11/21/22 11:11 Dose: 4 mg Documented By: MIGDALIA Ondansetron HCl (Ondansetron 4 Mg/2 Ml Inj) 4 mg IV NOW ONE Stop: 11/21/22 12:28 Last Admin: 11/21/22 12:31 Dose: 4 mg Documented By: ARTHUR Pantoprazole Sodium (Pantoprazole 40 Mg Vial) 40 mg IV NOW ONE Stop: 11/21/22 12:28 Last Admin: 11/21/22 12:31 Dose: 40 mg Documented By: ARTHUR Pregabalin (Pregabalin 75 Mg Capsule) 75 mg PO BID [facility] Last Admin: 11/23/22 19:52 Dose: Not Given Documented By: JOCY Pregabalin (Pregabalin 25 Mg Capsule) 75 mg PO BID [facility] Last Admin: 11/24/22 08:13 Dose: 75 mg Documented By: Admin: 11/23/22 21:15 Dose: 75 mg Documented By: Admin: 11/23/22 13:50 Dose: 75 mg Documented By: DAVION Vital Signs Vital signs: Vital Signs - 8 hr 11/24/22 10:53 11/24/22 09:45 11/24/22 10:00 Pulse Rate 77 75 Respiratory Rate 13 Blood Pressure 132/63 132/63 Pulse Oximetry Oxygen Delivery Method 11/24/22 10:00 11/24/22 10:15 11/24/22 10:30 Pulse Rate 74 81 76 Respiratory Rate 13 16 13 Blood Pressure Pulse Oximetry Oxygen Delivery Method 11/24/22 10:45 11/24/22 11:00 11/24/22 16:57 Pulse Rate 73 79 83 Respiratory Rate 13 25 H 16 Blood Pressure 147/75 H Pulse Oximetry 100 Oxygen Delivery Method Room Air <Bob Sullivan DO - Last Filed: 11/26/22 10:14> Orders Ordered: Discontinued Medications Aspirin (Aspirin Ec 81 Mg Tablet) 324 mg PO NOW ONE Stop: 11/21/22 12:24 Last Admin: 11/21/22 12:31 Dose: 324 mg Documented By: ARTHUR Aspirin (Aspirin 81 Mg Chew Tab) 324 mg PO NOW ONE Stop: 11/21/22 16:42 Last Admin: 11/21/22 17:46 Dose: Not Given Documented By: ARTHUR Atorvastatin Calcium (Atorvastatin 20 Mg Tablet) 80 mg PO DAILY [facility] Last Admin: 11/24/22 08:13 Dose: 80 mg Documented By: Admin: 11/23/22 10:12 Dose: 80 mg Documented By: Admin: 11/22/22 09:36 Dose: 80 mg Documented By: DAVION Clopidogrel Bisulfate (Clopidogrel 75 Mg Tablet) 75 mg PO NOW ONE Stop: 11/24/22 10:10 Last Admin: 11/24/22 11:14 Dose: 75 mg Documented By: BOBY Heparin Sodium (Porcine) (Heparin 5,000 Unit/Ml Vial) 5,000 unit IV NOW ONE Stop: 11/21/22 14:31 Last Admin: 11/21/22 14:56 Dose: 5,000 unit Documented By: ARTHUR Sodium Chloride (Normal Saline 0.9%) 1,000 mls @ 1,000 mls/hr IV BOLUS ONE Stop: 11/21/22 11:49 Last Infusion: 11/21/22 12:24 Dose: 0 mls/hr Documented By: Admin: 11/21/22 11:11 Dose: 1,000 mls/hr Documented By: MIGDALIA Sodium Chloride (Normal Saline 0.9%) 1,000 mls @ 150 mls/hr IV NOW ONE Stop: 11/21/22 20:40 Last Admin: 11/21/22 16:02 Dose: Not Given Documented By: ARTHUR Heparin Sodium/Dextrose (Heparin Drip) 25,000 unit in 500 mls @ 20 mls/hr IV CONT [facility]; Protocol Last Titration: 11/24/22 10:52 Dose: 0 units/hr, 0 mls/hr Documented By: Titration: 11/24/22 10:49 Dose: 0 units/hr, 0 mls/hr Documented By: Titration: 11/24/22 08:28 Dose: 850 units/hr, 17 mls/hr Documented By: Admin: 11/23/22 18:44 Dose: 900 units/hr, 18 mls/hr Documented By: Titration: 11/23/22 18:44 Dose: 900 units/hr, 18 mls/hr Documented By: Admin: 11/22/22 16:52 Dose: 900 units/hr, 18 mls/hr Documented By: Titration: 11/22/22 16:52 Dose: 900 units/hr, 18 mls/hr Documented By: Titration: 11/21/22 22:56 Dose: 900 units/hr, 18 mls/hr Documented By: Titration: 11/21/22 22:20 Dose: 0 units/hr, 0 mls/hr Documented By: Admin: 11/21/22 14:56 Dose: 1,000 units/hr, 20 mls/hr Documented By: ARTHUR Magnesium Sulfate (Magnesium Sulfate) 2 gm in 50 mls @ 25 mls/hr IV NOW ONE Stop: 11/21/22 18:43 Last Infusion: 11/21/22 19:22 Dose: 0 mls/hr Documented By: ARTHUR Co-signed By: MARY KAY Admin: 11/21/22 17:13 Dose: 25 mls/hr Documented By: ARTHUR Co-signed By: MIGDALIA Sodium Chloride (Normal Saline 0.9%) 500 mls @ 1,000 mls/hr IV BOLUS ONE Stop: 11/21/22 23:54 Last Infusion: 11/22/22 00:31 Dose: 0 mls/hr Documented By: Admin: 11/21/22 23:54 Dose: 1,000 mls/hr Documented By: ARTHUR POTASSIUM CHLORIDE IN WATER (Potassium Cl 10 Meq/100 Ml Dina) 10 meq in 100 mls @ 100 mls/hr IV Q1H OPAL Stop: 11/22/22 04:14 Last Infusion: 11/22/22 04:45 Dose: 0 mls/hr Documented By: Admin: 11/22/22 03:44 Dose: 100 mls/hr Documented By: Infusion: 11/22/22 03:24 Dose: 100 mls/hr Documented By: Admin: 11/22/22 02:24 Dose: 100 mls/hr Documented By: Infusion: 11/22/22 02:21 Dose: 100 mls/hr Documented By: Admin: 11/22/22 01:21 Dose: 100 mls/hr Documented By: Infusion: 11/22/22 01:15 Dose: 100 mls/hr Documented By: Admin: 11/22/22 00:15 Dose: 100 mls/hr Documented By: ARTHUR POTASSIUM CHLORIDE IN WATER (Potassium Cl 10 Meq/100 Ml Dina) 10 meq in 100 mls @ 100 mls/hr IV Q1H OPAL Stop: 11/23/22 09:29 Last Infusion: 11/23/22 10:56 Dose: 0 mls/hr Documented By: Admin: 11/23/22 10:01 Dose: 100 mls/hr Documented By: Infusion: 11/23/22 09:07 Dose: 100 mls/hr Documented By: Admin: 11/23/22 08:07 Dose: 100 mls/hr Documented By: DAVION Insulin Glargine (Insulin Glargine 100 Unit/Ml 3ml Pen) 10 unit SUBCUT BEDTIME [facility] Last Admin: 11/23/22 21:12 Dose: 10 unit Documented By: JOCY Co-signed By: MARCEL Admin: 11/22/22 21:40 Dose: 10 unit Documented By: KEVIN Co-signed By: HORACE Admin: 11/21/22 23:09 Dose: Not Given Documented By: ARTHUR Insulin Human Lispro (Insulin Lispro 100 Unit/Ml 3ml Vial) 0 unit SUBCUT ACHS [facility]; Protocol Last Admin: 11/24/22 15:08 Dose: Not Given Documented By: Admin: 11/24/22 07:53 Dose: Not Given Documented By: Admin: 11/23/22 21:12 Dose: Not Given Documented By: Admin: 11/23/22 18:39 Dose: 2 unit Documented By: DAVION Co-signed By: HORACE Admin: 11/23/22 13:42 Dose: 1 unit Documented By: DAVION Co-signed By: DAVION(2) Admin: 11/23/22 10:05 Dose: 1 unit Documented By: DAVION Co-signed By: DAVION(3) Admin: 11/22/22 21:42 Dose: Not Given Documented By: Admin: 11/22/22 17:01 Dose: Not Given Documented By: Admin: 11/22/22 17:00 Dose: Not Given Documented By: Admin: 11/22/22 09:33 Dose: 1 unit Documented By: DAVION Co-signed By: BOBY Admin: 11/21/22 23:09 Dose: Not Given Documented By: ARTHUR Lisinopril (Lisinopril 20 Mg Tablet) 20 mg PO DAILY [facility] Last Admin: 11/24/22 08:14 Dose: 20 mg Documented By: Admin: 11/23/22 10:09 Dose: 20 mg Documented By: Admin: 11/22/22 09:37 Dose: 20 mg Documented By: DAVION Metoclopramide HCl (Metoclopramide 10 Mg/2 Ml Inj) 10 mg IV NOW ONE Stop: 11/21/22 15:14 Last Admin: 11/21/22 15:16 Dose: 10 mg Documented By: ARTHUR Metoprolol Succinate (Metoprolol Er 25 Mg Tablet) 25 mg PO DAILY [facility] Last Admin: 11/24/22 08:14 Dose: 25 mg Documented By: Admin: 11/23/22 10:12 Dose: 25 mg Documented By: Admin: 11/22/22 09:36 Dose: 25 mg Documented By: DAVION Ondansetron HCl (Ondansetron 4 Mg/2 Ml Inj) 4 mg IV NOW ONE Stop: 11/21/22 10:51 Last Admin: 11/21/22 11:11 Dose: 4 mg Documented By: MIGDALIA Ondansetron HCl (Ondansetron 4 Mg/2 Ml Inj) 4 mg IV NOW ONE Stop: 11/21/22 12:28 Last Admin: 11/21/22 12:31 Dose: 4 mg Documented By: ARTHUR Pantoprazole Sodium (Pantoprazole 40 Mg Vial) 40 mg IV NOW ONE Stop: 11/21/22 12:28 Last Admin: 11/21/22 12:31 Dose: 40 mg Documented By: ARTHUR Pregabalin (Pregabalin 75 Mg Capsule) 75 mg PO BID [facility] Last Admin: 11/23/22 19:52 Dose: Not Given Documented By: JOCY Pregabalin (Pregabalin 25 Mg Capsule) 75 mg PO BID [facility] Last Admin: 11/24/22 08:13 Dose: 75 mg Documented By: Admin: 11/23/22 21:15 Dose: 75 mg Documented By: Admin: 11/23/22 13:50 Dose: 75 mg Documented By: DAVION Vital Signs Vital signs: Vital Signs - 8 hr 11/24/22 10:53 11/24/22 09:45 11/24/22 10:00 Pulse Rate 77 75 Respiratory Rate 13 Blood Pressure 132/63 132/63 Pulse Oximetry Oxygen Delivery Method 11/24/22 10:00 11/24/22 10:15 11/24/22 10:30 Pulse Rate 74 81 76 Respiratory Rate 13 16 13 Blood Pressure Pulse Oximetry Oxygen Delivery Method 11/24/22 10:45 11/24/22 11:00 11/24/22 16:57 Pulse Rate 73 79 83 Respiratory Rate 13 25 H 16 Blood Pressure 147/75 H Pulse Oximetry 100 Oxygen Delivery Method Room Air <Arjun Stevenson, DO - Last Filed: 11/23/22 18:27> Orders Ordered: Discontinued Medications Aspirin (Aspirin Ec 81 Mg Tablet) 324 mg PO NOW ONE Stop: 11/21/22 12:24 Last Admin: 11/21/22 12:31 Dose: 324 mg Documented By: ARTHUR Aspirin (Aspirin 81 Mg Chew Tab) 324 mg PO NOW ONE Stop: 11/21/22 16:42 Last Admin: 11/21/22 17:46 Dose: Not Given Documented By: ARTHUR Atorvastatin Calcium (Atorvastatin 20 Mg Tablet) 80 mg PO DAILY [facility] Last Admin: 11/24/22 08:13 Dose: 80 mg Documented By: Admin: 11/23/22 10:12 Dose: 80 mg Documented By: Admin: 11/22/22 09:36 Dose: 80 mg Documented By: DAVION Clopidogrel Bisulfate (Clopidogrel 75 Mg Tablet) 75 mg PO NOW ONE Stop: 11/24/22 10:10 Last Admin: 11/24/22 11:14 Dose: 75 mg Documented By: BOBY Heparin Sodium (Porcine) (Heparin 5,000 Unit/Ml Vial) 5,000 unit IV NOW ONE Stop: 11/21/22 14:31 Last Admin: 11/21/22 14:56 Dose: 5,000 unit Documented By: ARTHUR Sodium Chloride (Normal Saline 0.9%) 1,000 mls @ 1,000 mls/hr IV BOLUS ONE Stop: 11/21/22 11:49 Last Infusion: 11/21/22 12:24 Dose: 0 mls/hr Documented By: Admin: 11/21/22 11:11 Dose: 1,000 mls/hr Documented By: MIGDALIA Sodium Chloride (Normal Saline 0.9%) 1,000 mls @ 150 mls/hr IV NOW ONE Stop: 11/21/22 20:40 Last Admin: 11/21/22 16:02 Dose: Not Given Documented By: ARTHUR Heparin Sodium/Dextrose (Heparin Drip) 25,000 unit in 500 mls @ 20 mls/hr IV CONT [facility]; Protocol Last Titration: 11/24/22 10:52 Dose: 0 units/hr, 0 mls/hr Documented By: Titration: 11/24/22 10:49 Dose: 0 units/hr, 0 mls/hr Documented By: Titration: 11/24/22 08:28 Dose: 850 units/hr, 17 mls/hr Documented By: Admin: 11/23/22 18:44 Dose: 900 units/hr, 18 mls/hr Documented By: Titration: 11/23/22 18:44 Dose: 900 units/hr, 18 mls/hr Documented By: Admin: 11/22/22 16:52 Dose: 900 units/hr, 18 mls/hr Documented By: Titration: 11/22/22 16:52 Dose: 900 units/hr, 18 mls/hr Documented By: Titration: 11/21/22 22:56 Dose: 900 units/hr, 18 mls/hr Documented By: Titration: 11/21/22 22:20 Dose: 0 units/hr, 0 mls/hr Documented By: Admin: 11/21/22 14:56 Dose: 1,000 units/hr, 20 mls/hr Documented By: BS Magnesium Sulfate (Magnesium Sulfate) 2 gm in 50 mls @ 25 mls/hr IV NOW ONE Stop: 11/21/22 18:43 Last Infusion: 11/21/22 19:22 Dose: 0 mls/hr Documented By: ARTHUR Co-signed By: MLM Admin: 11/21/22 17:13 Dose: 25 mls/hr Documented By: ARTHUR Co-signed By: KLS Sodium Chloride (Normal Saline 0.9%) 500 mls @ 1,000 mls/hr IV BOLUS ONE Stop: 11/21/22 23:54 Last Infusion: 11/22/22 00:31 Dose: 0 mls/hr Documented By: Admin: 11/21/22 23:54 Dose: 1,000 mls/hr Documented By: BS POTASSIUM CHLORIDE IN WATER (Potassium Cl 10 Meq/100 Ml Dina) 10 meq in 100 mls @ 100 mls/hr IV Q1H OPAL Stop: 11/22/22 04:14 Last Infusion: 11/22/22 04:45 Dose: 0 mls/hr Documented By: Admin: 11/22/22 03:44 Dose: 100 mls/hr Documented By: Infusion: 11/22/22 03:24 Dose: 100 mls/hr Documented By: Admin: 11/22/22 02:24 Dose: 100 mls/hr Documented By: Infusion: 11/22/22 02:21 Dose: 100 mls/hr Documented By: Admin: 11/22/22 01:21 Dose: 100 mls/hr Documented By: Infusion: 11/22/22 01:15 Dose: 100 mls/hr Documented By: Admin: 11/22/22 00:15 Dose: 100 mls/hr Documented By: ARTHUR POTASSIUM CHLORIDE IN WATER (Potassium Cl 10 Meq/100 Ml Dina) 10 meq in 100 mls @ 100 mls/hr IV Q1H OPAL Stop: 11/23/22 09:29 Last Infusion: 11/23/22 10:56 Dose: 0 mls/hr Documented By: Admin: 11/23/22 10:01 Dose: 100 mls/hr Documented By: Infusion: 11/23/22 09:07 Dose: 100 mls/hr Documented By: Admin: 11/23/22 08:07 Dose: 100 mls/hr Documented By: DAVION Insulin Glargine (Insulin Glargine 100 Unit/Ml 3ml Pen) 10 unit SUBCUT BEDTIME [facility] Last Admin: 11/23/22 21:12 Dose: 10 unit Documented By: JOCY Co-signed By: MARCEL Admin: 11/22/22 21:40 Dose: 10 unit Documented By: KEVIN Co-signed By: HORACE Admin: 11/21/22 23:09 Dose: Not Given Documented By: ARTHUR Insulin Human Lispro (Insulin Lispro 100 Unit/Ml 3ml Vial) 0 unit SUBCUT ACHS [facility]; Protocol Last Admin: 11/24/22 15:08 Dose: Not Given Documented By: Admin: 11/24/22 07:53 Dose: Not Given Documented By: Admin: 11/23/22 21:12 Dose: Not Given Documented By: Admin: 11/23/22 18:39 Dose: 2 unit Documented By: DAVION Co-signed By: HORACE Admin: 11/23/22 13:42 Dose: 1 unit Documented By: DAVION Co-signed By: DAVION(2) Admin: 11/23/22 10:05 Dose: 1 unit Documented By: DAVION Co-signed By: DAVION(3) Admin: 11/22/22 21:42 Dose: Not Given Documented By: Admin: 11/22/22 17:01 Dose: Not Given Documented By: Admin: 11/22/22 17:00 Dose: Not Given Documented By: Admin: 11/22/22 09:33 Dose: 1 unit Documented By: DAVION Co-signed By: BOBY Admin: 11/21/22 23:09 Dose: Not Given Documented By: ARTHUR Lisinopril (Lisinopril 20 Mg Tablet) 20 mg PO DAILY [facility] Last Admin: 11/24/22 08:14 Dose: 20 mg Documented By: Admin: 11/23/22 10:09 Dose: 20 mg Documented By: Admin: 11/22/22 09:37 Dose: 20 mg Documented By: DAVION Metoclopramide HCl (Metoclopramide 10 Mg/2 Ml Inj) 10 mg IV NOW ONE Stop: 11/21/22 15:14 Last Admin: 11/21/22 15:16 Dose: 10 mg Documented By: ARTHUR Metoprolol Succinate (Metoprolol Er 25 Mg Tablet) 25 mg PO DAILY [facility] Last Admin: 11/24/22 08:14 Dose: 25 mg Documented By: Admin: 11/23/22 10:12 Dose: 25 mg Documented By: Admin: 11/22/22 09:36 Dose: 25 mg Documented By: DAVION Ondansetron HCl (Ondansetron 4 Mg/2 Ml Inj) 4 mg IV NOW ONE Stop: 11/21/22 10:51 Last Admin: 11/21/22 11:11 Dose: 4 mg Documented By: MIGDALIA Ondansetron HCl (Ondansetron 4 Mg/2 Ml Inj) 4 mg IV NOW ONE Stop: 11/21/22 12:28 Last Admin: 11/21/22 12:31 Dose: 4 mg Documented By: ARTHUR Pantoprazole Sodium (Pantoprazole 40 Mg Vial) 40 mg IV NOW ONE Stop: 11/21/22 12:28 Last Admin: 11/21/22 12:31 Dose: 40 mg Documented By: ARTHUR Pregabalin (Pregabalin 75 Mg Capsule) 75 mg PO BID [facility] Last Admin: 11/23/22 19:52 Dose: Not Given Documented By: JOCY Pregabalin (Pregabalin 25 Mg Capsule) 75 mg PO BID [facility] [facility] Last Admin: 11/24/22 08:13 Dose: 75 mg Documented By: Admin: 11/23/22 21:15 Dose: 75 mg Documented By: Admin: 11/23/22 13:50 Dose: 75 mg Documented By: DAVION Vital Signs Vital signs: Vital Signs - 8 hr 11/24/22 10:53 11/24/22 09:45 11/24/22 10:00 Pulse Rate 77 75 Respiratory Rate 13 Blood Pressure 132/63 132/63 Pulse Oximetry Oxygen Delivery Method 11/24/22 10:00 11/24/22 10:15 11/24/22 10:30 Pulse Rate 74 81 76 Respiratory Rate 13 16 13 Blood Pressure Pulse Oximetry Oxygen Delivery Method 11/24/22 10:45 11/24/22 11:00 11/24/22 16:57 Pulse Rate 73 79 83 Respiratory Rate 13 25 H 16 Blood Pressure 147/75 H Pulse Oximetry 100 Oxygen Delivery Method Room Air <Pierce Mann MD - Last Filed: 11/29/22 18:03> Orders Ordered: Discontinued Medications Aspirin (Aspirin Ec 81 Mg Tablet) 324 mg PO NOW ONE Stop: 11/21/22 12:24 Last Admin: 11/21/22 12:31 Dose: 324 mg Documented By: ARTHUR Aspirin (Aspirin 81 Mg Chew Tab) 324 mg PO NOW ONE Stop: 11/21/22 16:42 Last Admin: 11/21/22 17:46 Dose: Not Given Documented By: ARTHUR Atorvastatin Calcium (Atorvastatin 20 Mg Tablet) 80 mg PO DAILY [facility] Last Admin: 11/24/22 08:13 Dose: 80 mg Documented By: Admin: 11/23/22 10:12 Dose: 80 mg Documented By: Admin: 11/22/22 09:36 Dose: 80 mg Documented By: DAVION Clopidogrel Bisulfate (Clopidogrel 75 Mg Tablet) 75 mg PO NOW ONE Stop: 11/24/22 10:10 Last Admin: 11/24/22 11:14 Dose: 75 mg Documented By: BOBY Heparin Sodium (Porcine) (Heparin 5,000 Unit/Ml Vial) 5,000 unit IV NOW ONE Stop: 11/21/22 14:31 Last Admin: 11/21/22 14:56 Dose: 5,000 unit Documented By: ARTHUR Sodium Chloride (Normal Saline 0.9%) 1,000 mls @ 1,000 mls/hr IV BOLUS ONE Stop: 11/21/22 11:49 Last Infusion: 11/21/22 12:24 Dose: 0 mls/hr Documented By: Admin: 11/21/22 11:11 Dose: 1,000 mls/hr Documented By: MIGDALIA Sodium Chloride (Normal Saline 0.9%) 1,000 mls @ 150 mls/hr IV NOW ONE Stop: 11/21/22 20:40 Last Admin: 11/21/22 16:02 Dose: Not Given Documented By: ARTHUR Heparin Sodium/Dextrose (Heparin Drip) 25,000 unit in 500 mls @ 20 mls/hr IV CONT OPAL; Protocol Last Titration: 11/24/22 10:52 Dose: 0 units/hr, 0 mls/hr Documented By: Titration: 11/24/22 10:49 Dose: 0 units/hr, 0 mls/hr Documented By: Titration: 11/24/22 08:28 Dose: 850 units/hr, 17 mls/hr Documented By: Admin: 11/23/22 18:44 Dose: 900 units/hr, 18 mls/hr Documented By: Titration: 11/23/22 18:44 Dose: 900 units/hr, 18 mls/hr Documented By: Admin: 11/22/22 16:52 Dose: 900 units/hr, 18 mls/hr Documented By: Titration: 11/22/22 16:52 Dose: 900 units/hr, 18 mls/hr Documented By: Titration: 11/21/22 22:56 Dose: 900 units/hr, 18 mls/hr Documented By: Titration: 11/21/22 22:20 Dose: 0 units/hr, 0 mls/hr Documented By: Admin: 11/21/22 14:56 Dose: 1,000 units/hr, 20 mls/hr Documented By: ARTHUR Magnesium Sulfate (Magnesium Sulfate) 2 gm in 50 mls @ 25 mls/hr IV NOW ONE Stop: 11/21/22 18:43 Last Infusion: 11/21/22 19:22 Dose: 0 mls/hr Documented By: ARTHUR Co-signed By: MARY KAY Admin: 11/21/22 17:13 Dose: 25 mls/hr Documented By: ARTHUR Co-signed By: MIGDALIA Sodium Chloride (Normal Saline 0.9%) 500 mls @ 1,000 mls/hr IV BOLUS ONE Stop: 11/21/22 23:54 Last Infusion: 11/22/22 00:31 Dose: 0 mls/hr Documented By: Admin: 11/21/22 23:54 Dose: 1,000 mls/hr Documented By: ARTHUR POTASSIUM CHLORIDE IN WATER (Potassium Cl 10 Meq/100 Ml Dina) 10 meq in 100 mls @ 100 mls/hr IV Q1H OPAL Stop: 11/22/22 04:14 Last Infusion: 11/22/22 04:45 Dose: 0 mls/hr Documented By: Admin: 11/22/22 03:44 Dose: 100 mls/hr Documented By: Infusion: 11/22/22 03:24 Dose: 100 mls/hr Documented By: Admin: 11/22/22 02:24 Dose: 100 mls/hr Documented By: Infusion: 11/22/22 02:21 Dose: 100 mls/hr Documented By: Admin: 11/22/22 01:21 Dose: 100 mls/hr Documented By: Infusion: 11/22/22 01:15 Dose: 100 mls/hr Documented By: Admin: 11/22/22 00:15 Dose: 100 mls/hr Documented By: ARTHUR POTASSIUM CHLORIDE IN WATER (Potassium Cl 10 Meq/100 Ml Dina) 10 meq in 100 mls @ 100 mls/hr IV Q1H OPAL Stop: 11/23/22 09:29 Last Infusion: 11/23/22 10:56 Dose: 0 mls/hr Documented By: Admin: 11/23/22 10:01 Dose: 100 mls/hr Documented By: Infusion: 11/23/22 09:07 Dose: 100 mls/hr Documented By: Admin: 11/23/22 08:07 Dose: 100 mls/hr Documented By: DAVION Insulin Glargine (Insulin Glargine 100 Unit/Ml 3ml Pen) 10 unit SUBCUT BEDTIME [facility] Last Admin: 11/23/22 21:12 Dose: 10 unit Documented By: JOCY Co-signed By: MARCEL Admin: 11/22/22 21:40 Dose: 10 unit Documented By: KEVIN Co-signed By: HORACE Admin: 11/21/22 23:09 Dose: Not Given Documented By: ARTHUR Insulin Human Lispro (Insulin Lispro 100 Unit/Ml 3ml Vial) 0 unit SUBCUT ACHS [facility]; Protocol Last Admin: 11/24/22 15:08 Dose: Not Given Documented By: Admin: 11/24/22 07:53 Dose: Not Given Documented By: Admin: 11/23/22 21:12 Dose: Not Given Documented By: Admin: 11/23/22 18:39 Dose: 2 unit Documented By: DAVION Co-signed By: HORACE Admin: 11/23/22 13:42 Dose: 1 unit Documented By: DAVION Co-signed By: DAVION(2) Admin: 11/23/22 10:05 Dose: 1 unit Documented By: DAVION Co-signed By: DAVION(3) Admin: 11/22/22 21:42 Dose: Not Given Documented By: Admin: 11/22/22 17:01 Dose: Not Given Documented By: Admin: 11/22/22 17:00 Dose: Not Given Documented By: Admin: 11/22/22 09:33 Dose: 1 unit Documented By: DAVION Co-signed By: BOBY Admin: 11/21/22 23:09 Dose: Not Given Documented By: ARTHUR Lisinopril (Lisinopril 20 Mg Tablet) 20 mg PO DAILY [facility] Last Admin: 11/24/22 08:14 Dose: 20 mg Documented By: Admin: 11/23/22 10:09 Dose: 20 mg Documented By: Admin: 11/22/22 09:37 Dose: 20 mg Documented By: DAVION Metoclopramide HCl (Metoclopramide 10 Mg/2 Ml Inj) 10 mg IV NOW ONE Stop: 11/21/22 15:14 Last Admin: 11/21/22 15:16 Dose: 10 mg Documented By: ARTHUR Metoprolol Succinate (Metoprolol Er 25 Mg Tablet) 25 mg PO DAILY [facility] Last Admin: 11/24/22 08:14 Dose: 25 mg Documented By: Admin: 11/23/22 10:12 Dose: 25 mg Documented By: Admin: 11/22/22 09:36 Dose: 25 mg Documented By: DAVION Ondansetron HCl (Ondansetron 4 Mg/2 Ml Inj) 4 mg IV NOW ONE Stop: 11/21/22 10:51 Last Admin: 11/21/22 11:11 Dose: 4 mg Documented By: MIGDALIA Ondansetron HCl (Ondansetron 4 Mg/2 Ml Inj) 4 mg IV NOW ONE Stop: 11/21/22 12:28 Last Admin: 11/21/22 12:31 Dose: 4 mg Documented By: ARTHUR Pantoprazole Sodium (Pantoprazole 40 Mg Vial) 40 mg IV NOW ONE Stop: 11/21/22 12:28 Last Admin: 11/21/22 12:31 Dose: 40 mg Documented By: ARTHUR Pregabalin (Pregabalin 75 Mg Capsule) 75 mg PO BID [facility] Last Admin: 11/23/22 19:52 Dose: Not Given Documented By: JOCY Pregabalin (Pregabalin 25 Mg Capsule) 75 mg PO BID [facility] Last Admin: 11/24/22 08:13 Dose: 75 mg Documented By: Admin: 11/23/22 21:15 Dose: 75 mg Documented By: Admin: 11/23/22 13:50 Dose: 75 mg Documented By: DAVION Vital Signs Vital signs: Vital Signs - 8 hr 11/24/22 10:53 11/24/22 09:45 11/24/22 10:00 Pulse Rate 77 75 Respiratory Rate 13 Blood Pressure 132/63 132/63 Pulse Oximetry Oxygen Delivery Method 11/24/22 10:00 11/24/22 10:15 11/24/22 10:30 Pulse Rate 74 81 76 Respiratory Rate 13 16 13 Blood Pressure Pulse Oximetry Oxygen Delivery Method 11/24/22 10:45 11/24/22 11:00 11/24/22 16:57 Pulse Rate 73 79 83 Respiratory Rate 13 25 H 16 Blood Pressure 147/75 H Pulse Oximetry 100 Oxygen Delivery Method Room Air Medical Decision Making <Ny Aburto, - Last Filed: 11/24/22 17:36> Lab Data Result diagrams: 11/24/22 07:07 11/24/22 07:07 Labs: Lab Results 11/21/22 11/21/22 11/21/22 Range/Units 10:05 11:05 11:05 WBC 5.5 (4.5-11.0) X10^3/uL RBC 5.23 H (4.0-5.2) X10^6/uL Hgb 15.4 (12.0-16.0) g/dL Hct 43.6 (36-46) % MCV 83.4 (80-100) fL MCH 29.4 (26-34) PG MCHC 35.2 (30-36) % RDW 13.8 (11.6-14.8) % Plt Count 227 (150-400) X10^3/uL Neut % (Auto) 69.7 (50-75) % Lymph % (Auto) 19.0 L (25-40) % [place] % (Auto) 10.6 (3-14) % Eos % (Auto) 0.3 L (2-4) % Baso % (Auto) 0.4 (0-2) % Neut # (Auto) 3800 (5409-3729) /uL Lymph # (Auto) 1000 L (3105-0889) /uL [place] # (Auto) 600 (0-900) /uL Eos # (Auto) 0 (0-450) /uL Baso # (Auto) 0 (0-100) /uL PT 11.9 (10.1-12.7) SECONDS INR 1.0 (0.9-1.3) APTT 24 L D (26-36) SECONDS VBG pH (7.33-7.43) VBG pCO2 (45-50) mmHg VBG pO2 (35-45) mmHg VBG HCO3 (23-28) mmol/L VBG Total CO2 (24-29) mmol/L VBG O2 Saturation (70-75) % VBG Base Excess (0-4) mmol/L Sodium (137-145) mmol/L Potassium (3.4-5.1) mmol/L Chloride (98-107) mmol/L Carbon Dioxide (22-32) mmol/L BUN (7-17) mg/dL Creatinine (0.52-1.04) mg/dL Estimated GFR (>60) mL/min BUN/Creatinine Ratio (6-22) Glucose (70-100) mg/dL Calcium (8.4-10.2) mg/dL Magnesium (1.6-2.3) mg/dL Total Bilirubin (0.2-1.3) mg/dL AST (14-36) IU/L ALT (<35) IU/L Alkaline Phosphatase (38-126) U/L Total Creatine Kinase (30-135) U/L CK-MB (CK-2) (<2.37) ng/mL CK-MB (CK-2) Rel Index (1.5-5.0) % Troponin I (0.01-0.034) ng/mL NT-Pro-B Natriuret Pep 1160 H (<125) pg/mL Total Protein (6.3-8.2) g/dL Albumin (3.5-5.0) g/dL Globulin (1.7-4.1) g/dL Albumin/Globulin Ratio (1.0-2.8) Lipase (23-300) U/L Ketones (<0.27) mmol/L SARS-CoV-2 (PCR) (Negative) 11/21/22 11/21/22 11/21/22 Range/Units 11:05 11:27 13:00 WBC (4.5-11.0) X10^3/uL RBC (4.0-5.2) X10^6/uL Hgb (12.0-16.0) g/dL Hct (36-46) % MCV (80-100) fL MCH (26-34) PG MCHC (30-36) % RDW (11.6-14.8) % Plt Count (150-400) X10^3/uL Neut % (Auto) (50-75) % Lymph % (Auto) (25-40) % [place] % (Auto) (3-14) % Eos % (Auto) (2-4) % Baso % (Auto) (0-2) % Neut # (Auto) (3186-7753) /uL Lymph # (Auto) (0453-7943) /uL [place] # (Auto) (0-900) /uL Eos # (Auto) (0-450) /uL Baso # (Auto) (0-100) /uL PT (10.1-12.7) SECONDS INR (0.9-1.3) APTT (26-36) SECONDS VBG pH (7.33-7.43) VBG pCO2 (45-50) mmHg VBG pO2 (35-45) mmHg VBG HCO3 (23-28) mmol/L VBG Total CO2 (24-29) mmol/L VBG O2 Saturation (70-75) % VBG Base Excess (0-4) mmol/L Sodium 130 L (137-145) mmol/L Potassium 3.4 (3.4-5.1) mmol/L Chloride 96 L (98-107) mmol/L Carbon Dioxide 24 (22-32) mmol/L BUN 5 L (7-17) mg/dL Creatinine 0.34 L (0.52-1.04) mg/dL Estimated GFR > 60 (>60) mL/min BUN/Creatinine Ratio 14.7 (6-22) Glucose 177 H (70-100) mg/dL Calcium 8.4 (8.4-10.2) mg/dL Magnesium 1.4 L (1.6-2.3) mg/dL Total Bilirubin 1.2 (0.2-1.3) mg/dL AST 29 (14-36) IU/L ALT 15 (<35) IU/L Alkaline Phosphatase 68 (38-126) U/L Total Creatine Kinase 134 113 (30-135) U/L CK-MB (CK-2) 2.03 1.82 (<2.37) ng/mL CK-MB (CK-2) Rel Index 1.5 1.6 (1.5-5.0) % Troponin I 0.185 H* 0.189 H* (0.01-0.034) ng/mL NT-Pro-B Natriuret Pep (<125) pg/mL Total Protein 7.0 (6.3-8.2) g/dL Albumin 4.0 (3.5-5.0) g/dL Globulin 3.0 (1.7-4.1) g/dL Albumin/Globulin Ratio 1.3 (1.0-2.8) Lipase 79 (23-300) U/L Ketones 0.94 H (<0.27) mmol/L SARS-CoV-2 (PCR) (Negative) 11/21/22 11/21/22 11/21/22 Range/Units 13:04 13:13 18:23 WBC (4.5-11.0) X10^3/uL RBC (4.0-5.2) X10^6/uL Hgb (12.0-16.0) g/dL Hct (36-46) % MCV (80-100) fL MCH (26-34) PG MCHC (30-36) % RDW (11.6-14.8) % Plt Count (150-400) X10^3/uL Neut % (Auto) (50-75) % Lymph % (Auto) (25-40) % [place] % (Auto) (3-14) % Eos % (Auto) (2-4) % Baso % (Auto) (0-2) % Neut # (Auto) (0296-3016) /uL Lymph # (Auto) (8319-9411) /uL [place] # (Auto) (0-900) /uL Eos # (Auto) (0-450) /uL Baso # (Auto) (0-100) /uL PT (10.1-12.7) SECONDS INR (0.9-1.3) APTT (26-36) SECONDS VBG pH 7.45 H (7.33-7.43) VBG pCO2 38.4 L (45-50) mmHg VBG pO2 31 L (35-45) mmHg VBG HCO3 26 (23-28) mmol/L VBG Total CO2 28 (24-29) mmol/L VBG O2 Saturation 63 L (70-75) % VBG Base Excess 2.0 (0-4) mmol/L Sodium (137-145) mmol/L Potassium (3.4-5.1) mmol/L Chloride (98-107) mmol/L Carbon Dioxide (22-32) mmol/L BUN (7-17) mg/dL Creatinine (0.52-1.04) mg/dL Estimated GFR (>60) mL/min BUN/Creatinine Ratio (6-22) Glucose (70-100) mg/dL Calcium (8.4-10.2) mg/dL Magnesium (1.6-2.3) mg/dL Total Bilirubin (0.2-1.3) mg/dL AST (14-36) IU/L ALT (<35) IU/L Alkaline Phosphatase (38-126) U/L Total Creatine Kinase (30-135) U/L CK-MB (CK-2) (<2.37) ng/mL CK-MB (CK-2) Rel Index (1.5-5.0) % Troponin I 0.169 H* (0.01-0.034) ng/mL NT-Pro-B Natriuret Pep (<125) pg/mL Total Protein (6.3-8.2) g/dL Albumin (3.5-5.0) g/dL Globulin (1.7-4.1) g/dL Albumin/Globulin Ratio (1.0-2.8) Lipase (23-300) U/L Ketones (<0.27) mmol/L SARS-CoV-2 (PCR) Negative (Negative) 11/21/22 11/21/22 11/21/22 Range/Units 21:04 23:24 23:24 WBC 6.4 (4.5-11.0) X10^3/uL RBC 4.79 (4.0-5.2) X10^6/uL Hgb 13.9 (12.0-16.0) g/dL Hct 39.9 (36-46) % MCV 83.3 (80-100) fL MCH 29.0 (26-34) PG MCHC 34.8 (30-36) % RDW 13.7 (11.6-14.8) % Plt Count 234 (150-400) X10^3/uL Neut % (Auto) 36.9 L D (50-75) % Lymph % (Auto) 48.9 H D (25-40) % [place] % (Auto) 12.8 (3-14) % Eos % (Auto) 0.5 L (2-4) % Baso % (Auto) 0.9 (0-2) % Neut # (Auto) 2400 (9756-5625) /uL Lymph # (Auto) 3100 (8318-0882) /uL [place] # (Auto) 800 (0-900) /uL Eos # (Auto) 0 (0-450) /uL Baso # (Auto) 100 (0-100) /uL PT (10.1-12.7) SECONDS INR (0.9-1.3) APTT 89 H* D (26-36) SECONDS VBG pH (7.33-7.43) VBG pCO2 (45-50) mmHg VBG pO2 (35-45) mmHg VBG HCO3 (23-28) mmol/L VBG Total CO2 (24-29) mmol/L VBG O2 Saturation (70-75) % VBG Base Excess (0-4) mmol/L Sodium 133 L (137-145) mmol/L Potassium 2.5 L* (3.4-5.1) mmol/L Chloride 97 L (98-107) mmol/L Carbon Dioxide 29 (22-32) mmol/L BUN 2 L (7-17) mg/dL Creatinine 0.41 L (0.52-1.04) mg/dL Estimated GFR > 60 (>60) mL/min BUN/Creatinine Ratio 4.9 L (6-22) Glucose 119 H (70-100) mg/dL Calcium 7.8 L (8.4-10.2) mg/dL Magnesium (1.6-2.3) mg/dL Total Bilirubin 0.8 (0.2-1.3) mg/dL AST 19 (14-36) IU/L ALT 14 (<35) IU/L Alkaline Phosphatase 62 (38-126) U/L Total Creatine Kinase (30-135) U/L CK-MB (CK-2) (<2.37) ng/mL CK-MB (CK-2) Rel Index (1.5-5.0) % Troponin I (0.01-0.034) ng/mL NT-Pro-B Natriuret Pep (<125) pg/mL Total Protein 5.6 L (6.3-8.2) g/dL Albumin 3.1 L (3.5-5.0) g/dL Globulin 2.5 (1.7-4.1) g/dL Albumin/Globulin Ratio 1.2 (1.0-2.8) Lipase (23-300) U/L Ketones (<0.27) mmol/L SARS-CoV-2 (PCR) (Negative) 11/22/22 11/22/22 11/22/22 Range/Units 02:57 02:57 09:05 WBC (4.5-11.0) X10^3/uL RBC (4.0-5.2) X10^6/uL Hgb (12.0-16.0) g/dL Hct (36-46) % MCV (80-100) fL MCH (26-34) PG MCHC (30-36) % RDW (11.6-14.8) % Plt Count (150-400) X10^3/uL Neut % (Auto) (50-75) % Lymph % (Auto) (25-40) % [place] % (Auto) (3-14) % Eos % (Auto) (2-4) % Baso % (Auto) (0-2) % Neut # (Auto) (9572-2772) /uL Lymph # (Auto) (3459-0160) /uL [place] # (Auto) (0-900) /uL Eos # (Auto) (0-450) /uL Baso # (Auto) (0-100) /uL PT (10.1-12.7) SECONDS INR (0.9-1.3) APTT 69 H D (26-36) SECONDS VBG pH (7.33-7.43) VBG pCO2 (45-50) mmHg VBG pO2 (35-45) mmHg VBG HCO3 (23-28) mmol/L VBG Total CO2 (24-29) mmol/L VBG O2 Saturation (70-75) % VBG Base Excess (0-4) mmol/L Sodium (137-145) mmol/L Potassium 2.9 L (3.4-5.1) mmol/L Chloride (98-107) mmol/L Carbon Dioxide (22-32) mmol/L BUN (7-17) mg/dL Creatinine (0.52-1.04) mg/dL Estimated GFR (>60) mL/min BUN/Creatinine Ratio (6-22) Glucose (70-100) mg/dL Calcium (8.4-10.2) mg/dL Magnesium 1.8 (1.6-2.3) mg/dL Total Bilirubin (0.2-1.3) mg/dL AST (14-36) IU/L ALT (<35) IU/L Alkaline Phosphatase (38-126) U/L Total Creatine Kinase (30-135) U/L CK-MB (CK-2) (<2.37) ng/mL CK-MB (CK-2) Rel Index (1.5-5.0) % Troponin I (0.01-0.034) ng/mL NT-Pro-B Natriuret Pep (<125) pg/mL Total Protein (6.3-8.2) g/dL Albumin (3.5-5.0) g/dL Globulin (1.7-4.1) g/dL Albumin/Globulin Ratio (1.0-2.8) Lipase (23-300) U/L Ketones (<0.27) mmol/L SARS-CoV-2 (PCR) (Negative) 11/22/22 11/22/22 11/22/22 Range/Units 09:05 10:45 16:05 WBC (4.5-11.0) X10^3/uL RBC (4.0-5.2) X10^6/uL Hgb (12.0-16.0) g/dL Hct (36-46) % MCV (80-100) fL MCH (26-34) PG MCHC (30-36) % RDW (11.6-14.8) % Plt Count (150-400) X10^3/uL Neut % (Auto) (50-75) % Lymph % (Auto) (25-40) % [place] % (Auto) (3-14) % Eos % (Auto) (2-4) % Baso % (Auto) (0-2) % Neut # (Auto) (0048-6104) /uL Lymph # (Auto) (8278-1848) /uL [place] # (Auto) (0-900) /uL Eos # (Auto) (0-450) /uL Baso # (Auto) (0-100) /uL PT (10.1-12.7) SECONDS INR (0.9-1.3) APTT 71 H 60 H D (26-36) SECONDS VBG pH (7.33-7.43) VBG pCO2 (45-50) mmHg VBG pO2 (35-45) mmHg VBG HCO3 (23-28) mmol/L VBG Total CO2 (24-29) mmol/L VBG O2 Saturation (70-75) % VBG Base Excess (0-4) mmol/L Sodium 133 L (137-145) mmol/L Potassium 3.0 L (3.4-5.1) mmol/L Chloride 97 L (98-107) mmol/L Carbon Dioxide 30 (22-32) mmol/L BUN 2 L (7-17) mg/dL Creatinine 0.43 L (0.52-1.04) mg/dL Estimated GFR > 60 (>60) mL/min BUN/Creatinine Ratio 4.7 L (6-22) Glucose 140 H (70-100) mg/dL Calcium 7.7 L (8.4-10.2) mg/dL Magnesium (1.6-2.3) mg/dL Total Bilirubin (0.2-1.3) mg/dL AST (14-36) IU/L ALT (<35) IU/L Alkaline Phosphatase (38-126) U/L Total Creatine Kinase (30-135) U/L CK-MB (CK-2) (<2.37) ng/mL CK-MB (CK-2) Rel Index (1.5-5.0) % Troponin I (0.01-0.034) ng/mL NT-Pro-B Natriuret Pep (<125) pg/mL Total Protein (6.3-8.2) g/dL Albumin (3.5-5.0) g/dL Globulin (1.7-4.1) g/dL Albumin/Globulin Ratio (1.0-2.8) Lipase (23-300) U/L Ketones (<0.27) mmol/L SARS-CoV-2 (PCR) (Negative) 11/22/22 11/23/22 11/23/22 Range/Units 21:55 04:24 04:24 WBC (4.5-11.0) X10^3/uL RBC (4.0-5.2) X10^6/uL Hgb (12.0-16.0) g/dL Hct (36-46) % MCV (80-100) fL MCH (26-34) PG MCHC (30-36) % RDW (11.6-14.8) % Plt Count (150-400) X10^3/uL Neut % (Auto) (50-75) % Lymph % (Auto) (25-40) % [place] % (Auto) (3-14) % Eos % (Auto) (2-4) % Baso % (Auto) (0-2) % Neut # (Auto) (3825-3664) /uL Lymph # (Auto) (7115-4149) /uL [place] # (Auto) (0-900) /uL Eos # (Auto) (0-450) /uL Baso # (Auto) (0-100) /uL PT (10.1-12.7) SECONDS INR (0.9-1.3) APTT 58 H 53 H (26-36) SECONDS VBG pH (7.33-7.43) VBG pCO2 (45-50) mmHg VBG pO2 (35-45) mmHg VBG HCO3 (23-28) mmol/L VBG Total CO2 (24-29) mmol/L VBG O2 Saturation (70-75) % VBG Base Excess (0-4) mmol/L Sodium 133 L (137-145) mmol/L Potassium 3.0 L (3.4-5.1) mmol/L Chloride 99 (98-107) mmol/L Carbon Dioxide 27 (22-32) mmol/L BUN 6 L (7-17) mg/dL Creatinine 0.39 L (0.52-1.04) mg/dL Estimated GFR > 60 (>60) mL/min BUN/Creatinine Ratio 15.4 (6-22) Glucose 118 H (70-100) mg/dL Calcium 8.1 L (8.4-10.2) mg/dL Magnesium (1.6-2.3) mg/dL Total Bilirubin (0.2-1.3) mg/dL AST (14-36) IU/L ALT (<35) IU/L Alkaline Phosphatase (38-126) U/L Total Creatine Kinase 30 (30-135) U/L CK-MB (CK-2) TNP (<2.37) ng/mL CK-MB (CK-2) Rel Index TNP (1.5-5.0) % Troponin I 0.031 (0.01-0.034) ng/mL NT-Pro-B Natriuret Pep (<125) pg/mL Total Protein (6.3-8.2) g/dL Albumin (3.5-5.0) g/dL Globulin (1.7-4.1) g/dL Albumin/Globulin Ratio (1.0-2.8) Lipase (23-300) U/L Ketones (<0.27) mmol/L SARS-CoV-2 (PCR) (Negative) 11/23/22 11/23/22 11/24/22 Range/Units 11:37 17:46 00:58 WBC (4.5-11.0) X10^3/uL RBC (4.0-5.2) X10^6/uL Hgb (12.0-16.0) g/dL Hct (36-46) % MCV (80-100) fL MCH (26-34) PG MCHC (30-36) % RDW (11.6-14.8) % Plt Count (150-400) X10^3/uL Neut % (Auto) (50-75) % Lymph % (Auto) (25-40) % [place] % (Auto) (3-14) % Eos % (Auto) (2-4) % Baso % (Auto) (0-2) % Neut # (Auto) (9246-9208) /uL Lymph # (Auto) (1388-2194) /uL [place] # (Auto) (0-900) /uL Eos # (Auto) (0-450) /uL Baso # (Auto) (0-100) /uL PT (10.1-12.7) SECONDS INR (0.9-1.3) APTT 73 H* D 60 H D 56 H (26-36) SECONDS VBG pH (7.33-7.43) VBG pCO2 (45-50) mmHg VBG pO2 (35-45) mmHg VBG HCO3 (23-28) mmol/L VBG Total CO2 (24-29) mmol/L VBG O2 Saturation (70-75) % VBG Base Excess (0-4) mmol/L Sodium (137-145) mmol/L Potassium (3.4-5.1) mmol/L Chloride (98-107) mmol/L Carbon Dioxide (22-32) mmol/L BUN (7-17) mg/dL Creatinine (0.52-1.04) mg/dL Estimated GFR (>60) mL/min BUN/Creatinine Ratio (6-22) Glucose (70-100) mg/dL Calcium (8.4-10.2) mg/dL Magnesium (1.6-2.3) mg/dL Total Bilirubin (0.2-1.3) mg/dL AST (14-36) IU/L ALT (<35) IU/L Alkaline Phosphatase (38-126) U/L Total Creatine Kinase (30-135) U/L CK-MB (CK-2) (<2.37) ng/mL CK-MB (CK-2) Rel Index (1.5-5.0) % Troponin I (0.01-0.034) ng/mL NT-Pro-B Natriuret Pep (<125) pg/mL Total Protein (6.3-8.2) g/dL Albumin (3.5-5.0) g/dL Globulin (1.7-4.1) g/dL Albumin/Globulin Ratio (1.0-2.8) Lipase (23-300) U/L Ketones (<0.27) mmol/L SARS-CoV-2 (PCR) (Negative) 11/24/22 11/24/22 11/24/22 Range/Units 07:07 07:07 07:07 WBC 5.2 (4.5-11.0) X10^3/uL RBC 4.38 (4.0-5.2) X10^6/uL Hgb 12.8 (12.0-16.0) g/dL Hct 37.0 (36-46) % MCV 84.6 (80-100) fL MCH 29.3 (26-34) PG MCHC 34.6 (30-36) % RDW 13.4 (11.6-14.8) % Plt Count 182 (150-400) X10^3/uL Neut % (Auto) 47.2 L (50-75) % Lymph % (Auto) 39.2 (25-40) % [place] % (Auto) 11.0 (3-14) % Eos % (Auto) 1.8 L (2-4) % Baso % (Auto) 0.8 (0-2) % Neut # (Auto) 2500 (3747-9922) /uL Lymph # (Auto) 2100 (1256-4433) /uL [place] # (Auto) 600 (0-900) /uL Eos # (Auto) 100 (0-450) /uL Baso # (Auto) 0 (0-100) /uL PT (10.1-12.7) SECONDS INR (0.9-1.3) APTT 63 H (26-36) SECONDS VBG pH (7.33-7.43) VBG pCO2 (45-50) mmHg VBG pO2 (35-45) mmHg VBG HCO3 (23-28) mmol/L VBG Total CO2 (24-29) mmol/L VBG O2 Saturation (70-75) % VBG Base Excess (0-4) mmol/L Sodium 135 L (137-145) mmol/L Potassium 3.2 L (3.4-5.1) mmol/L Chloride 101 (98-107) mmol/L Carbon Dioxide 29 (22-32) mmol/L BUN 5 L (7-17) mg/dL Creatinine 0.42 L (0.52-1.04) mg/dL Estimated GFR > 60 (>60) mL/min BUN/Creatinine Ratio 11.9 (6-22) Glucose 142 H (70-100) mg/dL Calcium 8.2 L (8.4-10.2) mg/dL Magnesium (1.6-2.3) mg/dL Total Bilirubin 0.4 (0.2-1.3) mg/dL AST 18 (14-36) IU/L ALT 19 (<35) IU/L Alkaline Phosphatase 55 (38-126) U/L Total Creatine Kinase (30-135) U/L CK-MB (CK-2) (<2.37) ng/mL CK-MB (CK-2) Rel Index (1.5-5.0) % Troponin I 0.018 (0.01-0.034) ng/mL NT-Pro-B Natriuret Pep (<125) pg/mL Total Protein 5.0 L (6.3-8.2) g/dL Albumin 2.7 L (3.5-5.0) g/dL Globulin 2.3 (1.7-4.1) g/dL Albumin/Globulin Ratio 1.2 (1.0-2.8) Lipase (23-300) U/L Ketones (<0.27) mmol/L SARS-CoV-2 (PCR) (Negative) 11/24/22 Range/Units 13:04 WBC (4.5-11.0) X10^3/uL RBC (4.0-5.2) X10^6/uL Hgb (12.0-16.0) g/dL Hct (36-46) % MCV (80-100) fL MCH (26-34) PG MCHC (30-36) % RDW (11.6-14.8) % Plt Count (150-400) X10^3/uL Neut % (Auto) (50-75) % Lymph % (Auto) (25-40) % [place] % (Auto) (3-14) % Eos % (Auto) (2-4) % Baso % (Auto) (0-2) % Neut # (Auto) (0440-8349) /uL Lymph # (Auto) (8782-0150) /uL [place] # (Auto) (0-900) /uL Eos # (Auto) (0-450) /uL Baso # (Auto) (0-100) /uL PT (10.1-12.7) SECONDS INR (0.9-1.3) APTT 29 D (26-36) SECONDS VBG pH (7.33-7.43) VBG pCO2 (45-50) mmHg VBG pO2 (35-45) mmHg VBG HCO3 (23-28) mmol/L VBG Total CO2 (24-29) mmol/L VBG O2 Saturation (70-75) % VBG Base Excess (0-4) mmol/L Sodium (137-145) mmol/L Potassium (3.4-5.1) mmol/L Chloride (98-107) mmol/L Carbon Dioxide (22-32) mmol/L BUN (7-17) mg/dL Creatinine (0.52-1.04) mg/dL Estimated GFR (>60) mL/min BUN/Creatinine Ratio (6-22) Glucose (70-100) mg/dL Calcium (8.4-10.2) mg/dL Magnesium (1.6-2.3) mg/dL Total Bilirubin (0.2-1.3) mg/dL AST (14-36) IU/L ALT (<35) IU/L Alkaline Phosphatase (38-126) U/L Total Creatine Kinase (30-135) U/L CK-MB (CK-2) (<2.37) ng/mL CK-MB (CK-2) Rel Index (1.5-5.0) % Troponin I (0.01-0.034) ng/mL NT-Pro-B Natriuret Pep (<125) pg/mL Total Protein (6.3-8.2) g/dL Albumin (3.5-5.0) g/dL Globulin (1.7-4.1) g/dL Albumin/Globulin Ratio (1.0-2.8) Lipase (23-300) U/L Ketones (<0.27) mmol/L SARS-CoV-2 (PCR) (Negative) Point of Care Testing Test Results Negative Glucose POC 199 Urine Dip Bedside Urine Glucose 100 mg/dl Bedside Urine Bilirubin - Negative Bedside Urine Ketone + 15 Urine Specific [place] 1.010 Bedside Urine Occult Blood - Negative Bedside Urine pH 7.0 Bedside Urine Protein - Negative Bedside Urine Urobilinogen - Negative Bedside Urine Nitrite - Negative Bedside Urine Leukocytes - Negative Esterase Point of care testing: Point of Care Testing Test Results Negative Glucose POC 199 Urine Dip Bedside Urine Glucose 100 mg/dl Bedside Urine Bilirubin - Negative Bedside Urine Ketone + 15 Urine Specific [place] 1.010 Bedside Urine Occult Blood - Negative Bedside Urine pH 7.0 Bedside Urine Protein - Negative Bedside Urine Urobilinogen - Negative Bedside Urine Nitrite - Negative Bedside Urine Leukocytes - Negative Esterase Imaging Data CT scan - chest: Radiologist's Impression: [address] [place] [id number] Scan Report Signed Patient: Tayler Woo MR#: [id number] : 1970 Acct:[id number] Age/Sex: 52 / F Date of Service: 11/21/22 Loc: ED Accession Number: [id number] ?? Procedure: CT angio chest PE protocol Ordering Provider: Ny Aburto D.O. PROCEDURE:? CT ANGIO CHEST PE PROTOCOL ? INDICATIONS:? recent hospital stay ? TECHNIQUE:? After the administration of intravenous contrast, 2 mm thick sections acquired from the pulmonary apices to the posterior costophrenic angles.? 3-dimensional maximum intensity projection (MIP) coronal and sagittal reformats were then acquired through the thorax.? For radiation dose reduction, the following was used:? automated exposure control, adjustment of mA and/or kV according to patient size.? ? COMPARISON:? None. ? FINDINGS:? Image quality:? Excellent.? ? Pulmonary arteries:? Pulmonary arteries are normal in size, and demonstrate no intraluminal filling defects to suggest central pulmonary embolism.? ? Lungs and pleura:? Subtle hazy ground-glass opacities are seen in bilateral lung pisano suggestive of mild pulmonary edema versus pneumonitis.? Dependent atelectasis in posterior aspect of bilateral lung pisano are seen.? No pleural effusions or pneumothorax.? Central and peripheral airways are patent.? ? Mediastinum:? Heart size is normal, with small amount of pericardial effusion.? No mediastinal or hilar adenopathy.? Thoracic aorta is normal in caliber and enhancement.? Esophagus is normal in caliber, without hiatal hernia.? ? Bones and chest wall:? No suspicious bony lesions.? No acute vertebral body compression fracture.? Thyroid gland is within normal limits.? No axillary or supraclavicular adenopathy.? ? Abdomen:? Visualized upper abdominal solid organs appear normal in the early arterial phase of enhancement.? ? IMPRESSION:? 1. No evidence of pulmonary emboli.? No thoracic aortic aneurysm or gross dissection. ? ? 2. Dependent atelectasis in posterior aspect of bilateral lung pisano.? Suggestion of mild pulmonary edema versus pneumonitis.? No focal infiltrate, pleural effusion or pneumothorax. ? 3. No mediastinal or hilar lymphadenopathy by size criteria.? Small amount of pericardial effusion.? ? Dictated by: Homero Mackay M.D. on 11/21/2022 at 15:30 ? ? ECG Data Interpretation: Sinus tachycardia rate 118 OK interval 158 QRS 70 QTC 450 criselda 11/24/22 normal sinus rhythm rate 81 OK interval 204 QRS 74 QTC 464 persistent T-wave inversions lead 3 MDM Narrative Medical decision making narrative: Patient 52-year-old female history of insulin-dependent diabetes paroxysmal atrial fibrillation presenting today with nausea vomiting and chest burning. She initially was thought to be in DKA however glucose is 177 with an anion gap of 10 and a normal pH of 7.4 so not in DKA. She is not significantly dehydrated. In fact her creatinine is 0.34 which is improved from previous. Her troponin however is found to be elevated in the positive range at 0.185 with a repeat of 0.189. She is no EKG changes remains fairly tachycardic. There is concern for possible pulmonary embolism with recent admission to the hospitalist syncopal episode and ongoing tachycardia now elevated troponins. Fortunately the CT angio does not show pulmonary embolism. 1430 Dr. Wilhelm, Cardiology was consulted in regards to patient and NSTEMI. He agrees with heparin drip beta-sanya aspirin statin, and recommends transferring patient. Patient received Protonix Zofran aspirin and fluids. She describes some burning possibly heaviness. It does not seem to be quite severe. Actually quite a bit and denial about her diagnosis of elevated troponin concerning for NSTEMI. She understands that she will need to be transferred to another facility. Echocardiogram was done today however I do have the results. Reach out to cardiology at this was not read yet. Patient signed out to Dr. Sullivan will need transfer for NSTEMI. 1800 (Nate) Patient received in sign out from Dr. Aburto. I have reviewed the clinical course and performed an independent history and physical exam. Currently resting comfortably in symptom-free [2330 patient remains asymptomatic but repeat labs note a critical drop in her potassium to 2.5. K riders ordered as well as repeat labs 4 3:00 a.m. which note an increase to 2.9 0645 -patient resting comfortably, no dizziness, weakness or lightheadedness. No chest pain or shortness of breath. She understands we are still working on finding placement. Patient will be signed out to Dr. Michel for final disposition 11/22 1799 (Nate) patient received back in sign-out. Still awaiting bed placement. No significant issues over the course of the day. Patient continues to be on heparin. Repeat potassium had been improved but still low at 3.0 Dr stevenson: Received turned over. Reviewed patient's history and physical and workup up to this point. Patient's troponins have now trended down to below 99th percentile. She is not having chest pain. She is still on heparin. Echocardiogram from 2 days ago does show some left wall hypokinesis but normal ejection fraction. Patient was given somewhat anxious about being here in the emergency department for extended period of time. I did have a discussion with her and her at bedside about options to include being discharged home and follow-up for cardiac catheterization versus continued to stay in the emergency department until a bed assignment can be found. I recommended that she stay here in the ER and she agreed to do so. She was given Lyrica which is 1 of her baseline medications. Care turned over to Dr. Mann to continue to observe until disposition. November 23, 2022 at 6:[address] Stevenson, patient awaiting for transfer for facility with heart catheterization capability. Patient is on heparin drip. Will need morning labs to be ordered. Home meds are already in place. November 24, 2022 at 7:[address] Aburto, no new issues or course of night. Patient remains on waiting list for transfer for facility providing heart catheterization. Morning labs and repeat troponin are pending this morning. Home meds are automated already. Patient remains on heparin. Troponin is trending downward 11/24/22 Criselda-patient seen and evaluated by myself. Boarding in the emergency department with NSTEMI in insulin-dependent diabetes without DKA has been on heparin drip for almost 72 hours. She is found to have abnormal echocardiogram awaiting bed placement. Patient says that she slept really well last night she had a moment yesterday where she did not want to stay any longer but agrees to stay and cooperate. No chest pain no shortness of breath no nausea or vomiting. She is eating and drinking normally. GENERAL: Alert pleasant 52-year-old female and in no acute distress. HEENT: Head atraumatic,EOMI, pupils reactive, face symmetric, moist mucous membranes CARDIOVASCULAR: Regular rate and rhythm without murmurs, rubs or gallops. RESPIRATORY: Breath sounds equal bilaterally, no wheezes rales or rhonchi. ABDOMEN: Soft, nontender. Normoactive bowel sounds all 4 quadrants. No guarding or rebound. EXTREMITIES: Normal range of motion, no clubbing or edema. Neurovascularly intact NEUROLOGICAL: Alert and oriented x4. SKIN: Warm, dry, no laceration, no petechiae, no rashes or lesions. 1000am-Dr. Cardoza cardiology updated patient's symptoms test results agrees with stopping the heparin transferring over to Plavix 75 mg once daily along with aspirin 81 mg once daily agrees with ideal treatment of cardiac catheterization however if still unable to transfer may consider outpatient follow-up and cardiac catheterization All hospitals have been recalled included in [facility], Counts Include 234 Beds At [facility] in many others in the state she continues to be wait listed many people or boarding [facility] has also been contacted. There does not appear to be hope in transferring patient 1115 Dr. Gonzalez phone number [phone] has been updated on patient's symptoms test results she is patient's PCP. She is happy to put in referral to [facility] for outpatient follow-up 1140 Dr. Cardoza updated on outpatient plan, agrees to follow up. Briefly talked with [facility] possible placement at [facility], however that later was denied. [facility] is again denied. There is clearly no hope of getting patient transferred for 2 cardiac catheterization. However there is a good backup plan. I have discussed with patient that if she should have any new or worsening symptoms nausea vomiting arm pain jaw pain passing out or any other concerning symptoms she must return to the emergency department by ambulance which she agrees to. SANTIAGO CC: Nausea vomiting Complicating co-morbidities: Insulin-dependent diabetes paroxysmal atrial fibrillation Corroborating data: Previous hospitalization and ED visit Data collected from: Family Medical records reviewed: [ ] Differential considered: Acute coronary syndrome, DKA, pulmonary embolism, dissection Exam documented above, pertinent findings include: Nausea with epigastric discomfort Lab Test results independently reviewed as above. Pertinent findings: Elevated troponin without EKG changes Independently reviewed EKG as above Imaging studies independently reviewed: Consultations: Cardiology Treatments: Heparin drip times 72 hours, statin, beta-sanya, aspirin, CAMPOS inhibitor, insulin Re-evaluations: [ ] Discussion: See above Diagnosis: NSTEMI Disposition: see below, along with detailed discharge instructions that have been reviewed with patient as well as indications for ED re-evaluation and additional outpatient follow up <Bob Sullivan, - Last Filed: 11/26/22 10:14> Lab Data Labs: Lab Results 11/21/22 11/21/22 11/21/22 Range/Units 10:05 11:05 11:05 WBC 5.5 (4.5-11.0) X10^3/uL RBC 5.23 H (4.0-5.2) X10^6/uL Hgb 15.4 (12.0-16.0) g/dL Hct 43.6 (36-46) % MCV 83.4 (80-100) fL MCH 29.4 (26-34) PG MCHC 35.2 (30-36) % RDW 13.8 (11.6-14.8) % Plt Count 227 (150-400) X10^3/uL Neut % (Auto) 69.7 (50-75) % Lymph % (Auto) 19.0 L (25-40) % [place] % (Auto) 10.6 (3-14) % Eos % (Auto) 0.3 L (2-4) % Baso % (Auto) 0.4 (0-2) % Neut # (Auto) 3800 (8601-9482) /uL Lymph # (Auto) 1000 L (9653-6259) /uL [place] # (Auto) 600 (0-900) /uL Eos # (Auto) 0 (0-450) /uL Baso # (Auto) 0 (0-100) /uL PT 11.9 (10.1-12.7) SECONDS INR 1.0 (0.9-1.3) APTT 24 L D (26-36) SECONDS VBG pH (7.33-7.43) VBG pCO2 (45-50) mmHg VBG pO2 (35-45) mmHg VBG HCO3 (23-28) mmol/L VBG Total CO2 (24-29) mmol/L VBG O2 Saturation (70-75) % VBG Base Excess (0-4) mmol/L Sodium (137-145) mmol/L Potassium (3.4-5.1) mmol/L Chloride (98-107) mmol/L Carbon Dioxide (22-32) mmol/L BUN (7-17) mg/dL Creatinine (0.52-1.04) mg/dL Estimated GFR (>60) mL/min BUN/Creatinine Ratio (6-22) Glucose (70-100) mg/dL Calcium (8.4-10.2) mg/dL Magnesium (1.6-2.3) mg/dL Total Bilirubin (0.2-1.3) mg/dL AST (14-36) IU/L ALT (<35) IU/L Alkaline Phosphatase (38-126) U/L Total Creatine Kinase (30-135) U/L CK-MB (CK-2) (<2.37) ng/mL CK-MB (CK-2) Rel Index (1.5-5.0) % Troponin I (0.01-0.034) ng/mL NT-Pro-B Natriuret Pep 1160 H (<125) pg/mL Total Protein (6.3-8.2) g/dL Albumin (3.5-5.0) g/dL Globulin (1.7-4.1) g/dL Albumin/Globulin Ratio (1.0-2.8) Lipase (23-300) U/L Ketones (<0.27) mmol/L SARS-CoV-2 (PCR) (Negative) 01/08/0511/21/22 11/21/22 Range/Units 11:05 11:27 13:00 WBC (4.5-11.0) X10^3/uL RBC (4.0-5.2) X10^6/uL Hgb (12.0-16.0) g/dL Hct (36-46) % MCV (80-100) fL MCH (26-34) PG MCHC (30-36) % RDW (11.6-14.8) % Plt Count (150-400) X10^3/uL Neut % (Auto) (50-75) % Lymph % (Auto) (25-40) % [place] % (Auto) (3-14) % Eos % (Auto) (2-4) % Baso % (Auto) (0-2) % Neut # (Auto) (5797-4943) /uL Lymph # (Auto) (3778-8611) /uL [place] # (Auto) (0-900) /uL Eos # (Auto) (0-450) /uL Baso # (Auto) (0-100) /uL PT (10.1-12.7) SECONDS INR (0.9-1.3) APTT (26-36) SECONDS VBG pH (7.33-7.43) VBG pCO2 (45-50) mmHg VBG pO2 (35-45) mmHg VBG HCO3 (23-28) mmol/L VBG Total CO2 (24-29) mmol/L VBG O2 Saturation (70-75) % VBG Base Excess (0-4) mmol/L Sodium 130 L (137-145) mmol/L Potassium 3.4 (3.4-5.1) mmol/L Chloride 96 L (98-107) mmol/L Carbon Dioxide 24 (22-32) mmol/L BUN 5 L (7-17) mg/dL Creatinine 0.34 L (0.52-1.04) mg/dL Estimated GFR > 60 (>60) mL/min BUN/Creatinine Ratio 14.7 (6-22) Glucose 177 H (70-100) mg/dL Calcium 8.4 (8.4-10.2) mg/dL Magnesium 1.4 L (1.6-2.3) mg/dL Total Bilirubin 1.2 (0.2-1.3) mg/dL AST 29 (14-36) IU/L ALT 15 (<35) IU/L Alkaline Phosphatase 68 (38-126) U/L Total Creatine Kinase 134 113 (30-135) U/L CK-MB (CK-2) 2.03 1.82 (<2.37) ng/mL CK-MB (CK-2) Rel Index 1.5 1.6 (1.5-5.0) % Troponin I 0.185 H* 0.189 H* (0.01-0.034) ng/mL NT-Pro-B Natriuret Pep (<125) pg/mL Total Protein 7.0 (6.3-8.2) g/dL Albumin 4.0 (3.5-5.0) g/dL Globulin 3.0 (1.7-4.1) g/dL Albumin/Globulin Ratio 1.3 (1.0-2.8) Lipase 79 (23-300) U/L Ketones 0.94 H (<0.27) mmol/L SARS-CoV-2 (PCR) (Negative) 11/21/22 11/21/22 11/21/22 Range/Units 13:04 13:13 18:23 WBC (4.5-11.0) X10^3/uL RBC (4.0-5.2) X10^6/uL Hgb (12.0-16.0) g/dL Hct (36-46) % MCV (80-100) fL MCH (26-34) PG MCHC (30-36) % RDW (11.6-14.8) % Plt Count (150-400) X10^3/uL Neut % (Auto) (50-75) % Lymph % (Auto) (25-40) % [place] % (Auto) (3-14) % Eos % (Auto) (2-4) % Baso % (Auto) (0-2) % Neut # (Auto) (6668-0026) /uL Lymph # (Auto) (9304-5120) /uL [place] # (Auto) (0-900) /uL Eos # (Auto) (0-450) /uL Baso # (Auto) (0-100) /uL PT (10.1-12.7) SECONDS INR (0.9-1.3) APTT (26-36) SECONDS VBG pH 7.45 H (7.33-7.43) VBG pCO2 38.4 L (45-50) mmHg VBG pO2 31 L (35-45) mmHg VBG HCO3 26 (23-28) mmol/L VBG Total CO2 28 (24-29) mmol/L VBG O2 Saturation 63 L (70-75) % VBG Base Excess 2.0 (0-4) mmol/L Sodium (137-145) mmol/L Potassium (3.4-5.1) mmol/L Chloride (98-107) mmol/L Carbon Dioxide (22-32) mmol/L BUN (7-17) mg/dL Creatinine (0.52-1.04) mg/dL Estimated GFR (>60) mL/min BUN/Creatinine Ratio (6-22) Glucose (70-100) mg/dL Calcium (8.4-10.2) mg/dL Magnesium (1.6-2.3) mg/dL Total Bilirubin (0.2-1.3) mg/dL AST (14-36) IU/L ALT (<35) IU/L Alkaline Phosphatase (38-126) U/L Total Creatine Kinase (30-135) U/L CK-MB (CK-2) (<2.37) ng/mL CK-MB (CK-2) Rel Index (1.5-5.0) % Troponin I 0.169 H* (0.01-0.034) ng/mL NT-Pro-B Natriuret Pep (<125) pg/mL Total Protein (6.3-8.2) g/dL Albumin (3.5-5.0) g/dL Globulin (1.7-4.1) g/dL Albumin/Globulin Ratio (1.0-2.8) Lipase (23-300) U/L Ketones (<0.27) mmol/L SARS-CoV-2 (PCR) Negative (Negative) 11/21/22 11/21/22 11/21/22 Range/Units 21:04 23:24 23:24 WBC 6.4 (4.5-11.0) X10^3/uL RBC 4.79 (4.0-5.2) X10^6/uL Hgb 13.9 (12.0-16.0) g/dL Hct 39.9 (36-46) % MCV 83.3 (80-100) fL MCH 29.0 (26-34) PG MCHC 34.8 (30-36) % RDW 13.7 (11.6-14.8) % Plt Count 234 (150-400) X10^3/uL Neut % (Auto) 36.9 L D (50-75) % Lymph % (Auto) 48.9 H D (25-40) % [place] % (Auto) 12.8 (3-14) % Eos % (Auto) 0.5 L (2-4) % Baso % (Auto) 0.9 (0-2) % Neut # (Auto) 2400 (5299-8164) /uL Lymph # (Auto) 3100 (2591-9492) /uL [place] # (Auto) 800 (0-900) /uL Eos # (Auto) 0 (0-450) /uL Baso # (Auto) 100 (0-100) /uL PT (10.1-12.7) SECONDS INR (0.9-1.3) APTT 89 H* D (26-36) SECONDS VBG pH (7.33-7.43) VBG pCO2 (45-50) mmHg VBG pO2 (35-45) mmHg VBG HCO3 (23-28) mmol/L VBG Total CO2 (24-29) mmol/L VBG O2 Saturation (70-75) % VBG Base Excess (0-4) mmol/L Sodium 133 L (137-145) mmol/L Potassium 2.5 L* (3.4-5.1) mmol/L Chloride 97 L (98-107) mmol/L Carbon Dioxide 29 (22-32) mmol/L BUN 2 L (7-17) mg/dL Creatinine 0.41 L (0.52-1.04) mg/dL Estimated GFR > 60 (>60) mL/min BUN/Creatinine Ratio 4.9 L (6-22) Glucose 119 H (70-100) mg/dL Calcium 7.8 L (8.4-10.2) mg/dL Magnesium (1.6-2.3) mg/dL Total Bilirubin 0.8 (0.2-1.3) mg/dL AST 19 (14-36) IU/L ALT 14 (<35) IU/L Alkaline Phosphatase 62 (38-126) U/L Total Creatine Kinase (30-135) U/L CK-MB (CK-2) (<2.37) ng/mL CK-MB (CK-2) Rel Index (1.5-5.0) % Troponin I (0.01-0.034) ng/mL NT-Pro-B Natriuret Pep (<125) pg/mL Total Protein 5.6 L (6.3-8.2) g/dL Albumin 3.1 L (3.5-5.0) g/dL Globulin 2.5 (1.7-4.1) g/dL Albumin/Globulin Ratio 1.2 (1.0-2.8) Lipase (23-300) U/L Ketones (<0.27) mmol/L SARS-CoV-2 (PCR) (Negative) 11/22/22 11/22/22 11/22/22 Range/Units 02:57 02:57 09:05 WBC (4.5-11.0) X10^3/uL RBC (4.0-5.2) X10^6/uL Hgb (12.0-16.0) g/dL Hct (36-46) % MCV (80-100) fL MCH (26-34) PG MCHC (30-36) % RDW (11.6-14.8) % Plt Count (150-400) X10^3/uL Neut % (Auto) (50-75) % Lymph % (Auto) (25-40) % [place] % (Auto) (3-14) % Eos % (Auto) (2-4) % Baso % (Auto) (0-2) % Neut # (Auto) (0141-4465) /uL Lymph # (Auto) (0224-6295) /uL [place] # (Auto) (0-900) /uL Eos # (Auto) (0-450) /uL Baso # (Auto) (0-100) /uL PT (10.1-12.7) SECONDS INR (0.9-1.3) APTT 69 H D (26-36) SECONDS VBG pH (7.33-7.43) VBG pCO2 (45-50) mmHg VBG pO2 (35-45) mmHg VBG HCO3 (23-28) mmol/L VBG Total CO2 (24-29) mmol/L VBG O2 Saturation (70-75) % VBG Base Excess (0-4) mmol/L Sodium (137-145) mmol/L Potassium 2.9 L (3.4-5.1) mmol/L Chloride (98-107) mmol/L Carbon Dioxide (22-32) mmol/L BUN (7-17) mg/dL Creatinine (0.52-1.04) mg/dL Estimated GFR (>60) mL/min BUN/Creatinine Ratio (6-22) Glucose (70-100) mg/dL Calcium (8.4-10.2) mg/dL Magnesium 1.8 (1.6-2.3) mg/dL Total Bilirubin (0.2-1.3) mg/dL AST (14-36) IU/L ALT (<35) IU/L Alkaline Phosphatase (38-126) U/L Total Creatine Kinase (30-135) U/L CK-MB (CK-2) (<2.37) ng/mL CK-MB (CK-2) Rel Index (1.5-5.0) % Troponin I (0.01-0.034) ng/mL NT-Pro-B Natriuret Pep (<125) pg/mL Total Protein (6.3-8.2) g/dL Albumin (3.5-5.0) g/dL Globulin (1.7-4.1) g/dL Albumin/Globulin Ratio (1.0-2.8) Lipase (23-300) U/L Ketones (<0.27) mmol/L SARS-CoV-2 (PCR) (Negative) 11/22/22 11/22/22 11/22/22 Range/Units 09:05 10:45 16:05 WBC (4.5-11.0) X10^3/uL RBC (4.0-5.2) X10^6/uL Hgb (12.0-16.0) g/dL Hct (36-46) % MCV (80-100) fL MCH (26-34) PG MCHC (30-36) % RDW (11.6-14.8) % Plt Count (150-400) X10^3/uL Neut % (Auto) (50-75) % Lymph % (Auto) (25-40) % [place] % (Auto) (3-14) % Eos % (Auto) (2-4) % Baso % (Auto) (0-2) % Neut # (Auto) (7894-9510) /uL Lymph # (Auto) (9714-6496) /uL [place] # (Auto) (0-900) /uL Eos # (Auto) (0-450) /uL Baso # (Auto) (0-100) /uL PT (10.1-12.7) SECONDS INR (0.9-1.3) APTT 71 H 60 H D (26-36) SECONDS VBG pH (7.33-7.43) VBG pCO2 (45-50) mmHg VBG pO2 (35-45) mmHg VBG HCO3 (23-28) mmol/L VBG Total CO2 (24-29) mmol/L VBG O2 Saturation (70-75) % VBG Base Excess (0-4) mmol/L Sodium 133 L (137-145) mmol/L Potassium 3.0 L (3.4-5.1) mmol/L Chloride 97 L (98-107) mmol/L Carbon Dioxide 30 (22-32) mmol/L BUN 2 L (7-17) mg/dL Creatinine 0.43 L (0.52-1.04) mg/dL Estimated GFR > 60 (>60) mL/min BUN/Creatinine Ratio 4.7 L (6-22) Glucose 140 H (70-100) mg/dL Calcium 7.7 L (8.4-10.2) mg/dL Magnesium (1.6-2.3) mg/dL Total Bilirubin (0.2-1.3) mg/dL AST (14-36) IU/L ALT (<35) IU/L Alkaline Phosphatase (38-126) U/L Total Creatine Kinase (30-135) U/L CK-MB (CK-2) (<2.37) ng/mL CK-MB (CK-2) Rel Index (1.5-5.0) % Troponin I (0.01-0.034) ng/mL NT-Pro-B Natriuret Pep (<125) pg/mL Total Protein (6.3-8.2) g/dL Albumin (3.5-5.0) g/dL Globulin (1.7-4.1) g/dL Albumin/Globulin Ratio (1.0-2.8) Lipase (23-300) U/L Ketones (<0.27) mmol/L SARS-CoV-2 (PCR) (Negative) 11/22/22 11/23/22 11/23/22 Range/Units 21:55 04:24 04:24 WBC (4.5-11.0) X10^3/uL RBC (4.0-5.2) X10^6/uL Hgb (12.0-16.0) g/dL Hct (36-46) % MCV (80-100) fL MCH (26-34) PG MCHC (30-36) % RDW (11.6-14.8) % Plt Count (150-400) X10^3/uL Neut % (Auto) (50-75) % Lymph % (Auto) (25-40) % [place] % (Auto) (3-14) % Eos % (Auto) (2-4) % Baso % (Auto) (0-2) % Neut # (Auto) (0591-0425) /uL Lymph # (Auto) (5811-6563) /uL [place] # (Auto) (0-900) /uL Eos # (Auto) (0-450) /uL Baso # (Auto) (0-100) /uL PT (10.1-12.7) SECONDS INR (0.9-1.3) APTT 58 H 53 H (26-36) SECONDS VBG pH (7.33-7.43) VBG pCO2 (45-50) mmHg VBG pO2 (35-45) mmHg VBG HCO3 (23-28) mmol/L VBG Total CO2 (24-29) mmol/L VBG O2 Saturation (70-75) % VBG Base Excess (0-4) mmol/L Sodium 133 L (137-145) mmol/L Potassium 3.0 L (3.4-5.1) mmol/L Chloride 99 (98-107) mmol/L Carbon Dioxide 27 (22-32) mmol/L BUN 6 L (7-17) mg/dL Creatinine 0.39 L (0.52-1.04) mg/dL Estimated GFR > 60 (>60) mL/min BUN/Creatinine Ratio 15.4 (6-22) Glucose 118 H (70-100) mg/dL Calcium 8.1 L (8.4-10.2) mg/dL Magnesium (1.6-2.3) mg/dL Total Bilirubin (0.2-1.3) mg/dL AST (14-36) IU/L ALT (<35) IU/L Alkaline Phosphatase (38-126) U/L Total Creatine Kinase 30 (30-135) U/L CK-MB (CK-2) TNP (<2.37) ng/mL CK-MB (CK-2) Rel Index TNP (1.5-5.0) % Troponin I 0.031 (0.01-0.034) ng/mL NT-Pro-B Natriuret Pep (<125) pg/mL Total Protein (6.3-8.2) g/dL Albumin (3.5-5.0) g/dL Globulin (1.7-4.1) g/dL Albumin/Globulin Ratio (1.0-2.8) Lipase (23-300) U/L Ketones (<0.27) mmol/L SARS-CoV-2 (PCR) (Negative) 11/23/22 11/23/22 11/24/22 Range/Units 11:37 17:46 00:58 WBC (4.5-11.0) X10^3/uL RBC (4.0-5.2) X10^6/uL Hgb (12.0-16.0) g/dL Hct (36-46) % MCV (80-100) fL MCH (26-34) PG MCHC (30-36) % RDW (11.6-14.8) % Plt Count (150-400) X10^3/uL Neut % (Auto) (50-75) % Lymph % (Auto) (25-40) % [place] % (Auto) (3-14) % Eos % (Auto) (2-4) % Baso % (Auto) (0-2) % Neut # (Auto) (6112-9085) /uL Lymph # (Auto) (9256-7644) /uL [place] # (Auto) (0-900) /uL Eos # (Auto) (0-450) /uL Baso # (Auto) (0-100) /uL PT (10.1-12.7) SECONDS INR (0.9-1.3) APTT 73 H* D 60 H D 56 H (26-36) SECONDS VBG pH (7.33-7.43) VBG pCO2 (45-50) mmHg VBG pO2 (35-45) mmHg VBG HCO3 (23-28) mmol/L VBG Total CO2 (24-29) mmol/L VBG O2 Saturation (70-75) % VBG Base Excess (0-4) mmol/L Sodium (137-145) mmol/L Potassium (3.4-5.1) mmol/L Chloride (98-107) mmol/L Carbon Dioxide (22-32) mmol/L BUN (7-17) mg/dL Creatinine (0.52-1.04) mg/dL Estimated GFR (>60) mL/min BUN/Creatinine Ratio (6-22) Glucose (70-100) mg/dL Calcium (8.4-10.2) mg/dL Magnesium (1.6-2.3) mg/dL Total Bilirubin (0.2-1.3) mg/dL AST (14-36) IU/L ALT (<35) IU/L Alkaline Phosphatase (38-126) U/L Total Creatine Kinase (30-135) U/L CK-MB (CK-2) (<2.37) ng/mL CK-MB (CK-2) Rel Index (1.5-5.0) % Troponin I (0.01-0.034) ng/mL NT-Pro-B Natriuret Pep (<125) pg/mL Total Protein (6.3-8.2) g/dL Albumin (3.5-5.0) g/dL Globulin (1.7-4.1) g/dL Albumin/Globulin Ratio (1.0-2.8) Lipase (23-300) U/L Ketones (<0.27) mmol/L SARS-CoV-2 (PCR) (Negative) 11/24/22 11/24/22 11/24/22 Range/Units 07:07 07:07 07:07 WBC 5.2 (4.5-11.0) X10^3/uL RBC 4.38 (4.0-5.2) X10^6/uL Hgb 12.8 (12.0-16.0) g/dL Hct 37.0 (36-46) % MCV 84.6 (80-100) fL MCH 29.3 (26-34) PG MCHC 34.6 (30-36) % RDW 13.4 (11.6-14.8) % Plt Count 182 (150-400) X10^3/uL Neut % (Auto) 47.2 L (50-75) % Lymph % (Auto) 39.2 (25-40) % [place] % (Auto) 11.0 (3-14) % Eos % (Auto) 1.8 L (2-4) % Baso % (Auto) 0.8 (0-2) % Neut # (Auto) 2500 (8390-4367) /uL Lymph # (Auto) 2100 (1929-3992) /uL [place] # (Auto) 600 (0-900) /uL Eos # (Auto) 100 (0-450) /uL Baso # (Auto) 0 (0-100) /uL PT (10.1-12.7) SECONDS INR (0.9-1.3) APTT 63 H (26-36) SECONDS VBG pH (7.33-7.43) VBG pCO2 (45-50) mmHg VBG pO2 (35-45) mmHg VBG HCO3 (23-28) mmol/L VBG Total CO2 (24-29) mmol/L VBG O2 Saturation (70-75) % VBG Base Excess (0-4) mmol/L Sodium 135 L (137-145) mmol/L Potassium 3.2 L (3.4-5.1) mmol/L Chloride 101 (98-107) mmol/L Carbon Dioxide 29 (22-32) mmol/L BUN 5 L (7-17) mg/dL Creatinine 0.42 L (0.52-1.04) mg/dL Estimated GFR > 60 (>60) mL/min BUN/Creatinine Ratio 11.9 (6-22) Glucose 142 H (70-100) mg/dL Calcium 8.2 L (8.4-10.2) mg/dL Magnesium (1.6-2.3) mg/dL Total Bilirubin 0.4 (0.2-1.3) mg/dL AST 18 (14-36) IU/L ALT 19 (<35) IU/L Alkaline Phosphatase 55 (38-126) U/L Total Creatine Kinase (30-135) U/L CK-MB (CK-2) (<2.37) ng/mL CK-MB (CK-2) Rel Index (1.5-5.0) % Troponin I 0.018 (0.01-0.034) ng/mL NT-Pro-B Natriuret Pep (<125) pg/mL Total Protein 5.0 L (6.3-8.2) g/dL Albumin 2.7 L (3.5-5.0) g/dL Globulin 2.3 (1.7-4.1) g/dL Albumin/Globulin Ratio 1.2 (1.0-2.8) Lipase (23-300) U/L Ketones (<0.27) mmol/L SARS-CoV-2 (PCR) (Negative) 11/24/22 Range/Units 13:04 WBC (4.5-11.0) X10^3/uL RBC (4.0-5.2) X10^6/uL Hgb (12.0-16.0) g/dL Hct (36-46) % MCV (80-100) fL MCH (26-34) PG MCHC (30-36) % RDW (11.6-14.8) % Plt Count (150-400) X10^3/uL Neut % (Auto) (50-75) % Lymph % (Auto) (25-40) % [place] % (Auto) (3-14) % Eos % (Auto) (2-4) % Baso % (Auto) (0-2) % Neut # (Auto) (6915-2426) /uL Lymph # (Auto) (0129-3476) /uL [place] # (Auto) (0-900) /uL Eos # (Auto) (0-450) /uL Baso # (Auto) (0-100) /uL PT (10.1-12.7) SECONDS INR (0.9-1.3) APTT 29 D (26-36) SECONDS VBG pH (7.33-7.43) VBG pCO2 (45-50) mmHg VBG pO2 (35-45) mmHg VBG HCO3 (23-28) mmol/L VBG Total CO2 (24-29) mmol/L VBG O2 Saturation (70-75) % VBG Base Excess (0-4) mmol/L Sodium (137-145) mmol/L Potassium (3.4-5.1) mmol/L Chloride (98-107) mmol/L Carbon Dioxide (22-32) mmol/L BUN (7-17) mg/dL Creatinine (0.52-1.04) mg/dL Estimated GFR (>60) mL/min BUN/Creatinine Ratio (6-22) Glucose (70-100) mg/dL Calcium (8.4-10.2) mg/dL Magnesium (1.6-2.3) mg/dL Total Bilirubin (0.2-1.3) mg/dL AST (14-36) IU/L ALT (<35) IU/L Alkaline Phosphatase (38-126) U/L Total Creatine Kinase (30-135) U/L CK-MB (CK-2) (<2.37) ng/mL CK-MB (CK-2) Rel Index (1.5-5.0) % Troponin I (0.01-0.034) ng/mL NT-Pro-B Natriuret Pep (<125) pg/mL Total Protein (6.3-8.2) g/dL Albumin (3.5-5.0) g/dL Globulin (1.7-4.1) g/dL Albumin/Globulin Ratio (1.0-2.8) Lipase (23-300) U/L Ketones (<0.27) mmol/L SARS-CoV-2 (PCR) (Negative) Point of Care Testing Test Results Negative Glucose POC 199 Urine Dip Bedside Urine Glucose 100 mg/dl Bedside Urine Bilirubin - Negative Bedside Urine Ketone + 15 Urine Specific [place] 1.010 Bedside Urine Occult Blood - Negative Bedside Urine pH 7.0 Bedside Urine Protein - Negative Bedside Urine Urobilinogen - Negative Bedside Urine Nitrite - Negative Bedside Urine Leukocytes - Negative Esterase Point of care testing: Point of Care Testing Test Results Negative Glucose POC 199 Urine Dip Bedside Urine Glucose 100 mg/dl Bedside Urine Bilirubin - Negative Bedside Urine Ketone + 15 Urine Specific [place] 1.010 Bedside Urine Occult Blood - Negative Bedside Urine pH 7.0 Bedside Urine Protein - Negative Bedside Urine Urobilinogen - Negative Bedside Urine Nitrite - Negative Bedside Urine Leukocytes - Negative Esterase MDM Narrative Medical decision making narrative: Patient 52-year-old female history of insulin-dependent diabetes paroxysmal atrial fibrillation presenting today with nausea vomiting and chest burning. She initially was thought to be in DKA however glucose is 177 with an anion gap of 10 and a normal pH of 7.4 so not in DKA. She is not significantly dehydrated. In fact her creatinine is 0.34 which is improved from previous. Her troponin however is found to be elevated in the positive range at 0.185 with a repeat of 0.189. She is no EKG changes remains fairly tachycardic. There is concern for possible pulmonary embolism with recent admission to the hospitalist syncopal episode and ongoing tachycardia now elevated troponins. Fortunately the CT angio does not show pulmonary embolism. 1430 Dr. Wilhelm, Cardiology was consulted in regards to patient and NSTEMI. He agrees with heparin drip beta-sanya aspirin statin, and recommends transferring patient. Patient received Protonix Zofran aspirin and fluids. She describes some burning possibly heaviness. It does not seem to be quite severe. Actually quite a bit and denial about her diagnosis of elevated troponin concerning for NSTEMI. She understands that she will need to be transferred to another facility. Echocardiogram was done today however I do have the results. Reach out to cardiology at this was not read yet. Patient signed out to Dr. Sullivan will need transfer for NSTEMI. [1800] (Nate) Patient received in sign out from Dr. Dallas]. I have reviewed the clinical course and performed an independent history and physical exam. Currently resting comfortably in symptom-free [2330 patient remains asymptomatic but repeat labs note a critical drop in her potassium to 2.5. K riders ordered as well as repeat labs 4 3:00 a.m. which note an increase to 2.9 0645 -patient resting comfortably, no dizziness, weakness or lightheadedness. No chest pain or shortness of breath. She understands we are still working on finding placement. Patient will be signed out to Dr. Michel for final disposition 11/22 1799 (Nate) patient received back in sign-out. Still awaiting bed placement. No significant issues over the course of the day. Patient continues to be on heparin. Repeat potassium had been improved but still low at 3.0 <Arjun Stevenson, DO - Last Filed: 11/23/22 18:27> Lab Data Labs: Lab Results 11/21/22 11/21/22 11/21/22 Range/Units 10:05 11:05 11:05 WBC 5.5 (4.5-11.0) X10^3/uL RBC 5.23 H (4.0-5.2) X10^6/uL Hgb 15.4 (12.0-16.0) g/dL Hct 43.6 (36-46) % MCV 83.4 (80-100) fL MCH 29.4 (26-34) PG MCHC 35.2 (30-36) % RDW 13.8 (11.6-14.8) % Plt Count 227 (150-400) X10^3/uL Neut % (Auto) 69.7 (50-75) % Lymph % (Auto) 19.0 L (25-40) % [place] % (Auto) 10.6 (3-14) % Eos % (Auto) 0.3 L (2-4) % Baso % (Auto) 0.4 (0-2) % Neut # (Auto) 3800 (2134-0826) /uL Lymph # (Auto) 1000 L (1472-7725) /uL [place] # (Auto) 600 (0-900) /uL Eos # (Auto) 0 (0-450) /uL Baso # (Auto) 0 (0-100) /uL PT 11.9 (10.1-12.7) SECONDS INR 1.0 (0.9-1.3) APTT 24 L D (26-36) SECONDS VBG pH (7.33-7.43) VBG pCO2 (45-50) mmHg VBG pO2 (35-45) mmHg VBG HCO3 (23-28) mmol/L VBG Total CO2 (24-29) mmol/L VBG O2 Saturation (70-75) % VBG Base Excess (0-4) mmol/L Sodium (137-145) mmol/L Potassium (3.4-5.1) mmol/L Chloride (98-107) mmol/L Carbon Dioxide (22-32) mmol/L BUN (7-17) mg/dL Creatinine (0.52-1.04) mg/dL Estimated GFR (>60) mL/min BUN/Creatinine Ratio (6-22) Glucose (70-100) mg/dL Calcium (8.4-10.2) mg/dL Magnesium (1.6-2.3) mg/dL Total Bilirubin (0.2-1.3) mg/dL AST (14-36) IU/L ALT (<35) IU/L Alkaline Phosphatase (38-126) U/L Total Creatine Kinase (30-135) U/L CK-MB (CK-2) (<2.37) ng/mL CK-MB (CK-2) Rel Index (1.5-5.0) % Troponin I (0.01-0.034) ng/mL NT-Pro-B Natriuret Pep 1160 H (<125) pg/mL Total Protein (6.3-8.2) g/dL Albumin (3.5-5.0) g/dL Globulin (1.7-4.1) g/dL Albumin/Globulin Ratio (1.0-2.8) Lipase (23-300) U/L Ketones (<0.27) mmol/L SARS-CoV-2 (PCR) (Negative) 11/21/22 11/21/22 11/21/22 Range/Units 11:05 11:27 13:00 WBC (4.5-11.0) X10^3/uL RBC (4.0-5.2) X10^6/uL Hgb (12.0-16.0) g/dL Hct (36-46) % MCV (80-100) fL MCH (26-34) PG MCHC (30-36) % RDW (11.6-14.8) % Plt Count (150-400) X10^3/uL Neut % (Auto) (50-75) % Lymph % (Auto) (25-40) % [place] % (Auto) (3-14) % Eos % (Auto) (2-4) % Baso % (Auto) (0-2) % Neut # (Auto) (3356-2234) /uL Lymph # (Auto) (0988-6813) /uL [place] # (Auto) (0-900) /uL Eos # (Auto) (0-450) /uL Baso # (Auto) (0-100) /uL PT (10.1-12.7) SECONDS INR (0.9-1.3) APTT (26-36) SECONDS VBG pH (7.33-7.43) VBG pCO2 (45-50) mmHg VBG pO2 (35-45) mmHg VBG HCO3 (23-28) mmol/L VBG Total CO2 (24-29) mmol/L VBG O2 Saturation (70-75) % VBG Base Excess (0-4) mmol/L Sodium 130 L (137-145) mmol/L Potassium 3.4 (3.4-5.1) mmol/L Chloride 96 L (98-107) mmol/L Carbon Dioxide 24 (22-32) mmol/L BUN 5 L (7-17) mg/dL Creatinine 0.34 L (0.52-1.04) mg/dL Estimated GFR > 60 (>60) mL/min BUN/Creatinine Ratio 14.7 (6-22) Glucose 177 H (70-100) mg/dL Calcium 8.4 (8.4-10.2) mg/dL Magnesium 1.4 L (1.6-2.3) mg/dL Total Bilirubin 1.2 (0.2-1.3) mg/dL AST 29 (14-36) IU/L ALT 15 (<35) IU/L Alkaline Phosphatase 68 (38-126) U/L Total Creatine Kinase 134 113 (30-135) U/L CK-MB (CK-2) 2.03 1.82 (<2.37) ng/mL CK-MB (CK-2) Rel Index 1.5 1.6 (1.5-5.0) % Troponin I 0.185 H* 0.189 H* (0.01-0.034) ng/mL NT-Pro-B Natriuret Pep (<125) pg/mL Total Protein 7.0 (6.3-8.2) g/dL Albumin 4.0 (3.5-5.0) g/dL Globulin 3.0 (1.7-4.1) g/dL Albumin/Globulin Ratio 1.3 (1.0-2.8) Lipase 79 (23-300) U/L Ketones 0.94 H (<0.27) mmol/L SARS-CoV-2 (PCR) (Negative) 11/21/22 11/21/22 11/21/22 Range/Units 13:04 13:13 18:23 WBC (4.5-11.0) X10^3/uL RBC (4.0-5.2) X10^6/uL Hgb (12.0-16.0) g/dL Hct (36-46) % MCV (80-100) fL MCH (26-34) PG MCHC (30-36) % RDW (11.6-14.8) % Plt Count (150-400) X10^3/uL Neut % (Auto) (50-75) % Lymph % (Auto) (25-40) % [place] % (Auto) (3-14) % Eos % (Auto) (2-4) % Baso % (Auto) (0-2) % Neut # (Auto) (9453-7195) /uL Lymph # (Auto) (1132-4362) /uL [place] # (Auto) (0-900) /uL Eos # (Auto) (0-450) /uL Baso # (Auto) (0-100) /uL PT (10.1-12.7) SECONDS INR (0.9-1.3) APTT (26-36) SECONDS VBG pH 7.45 H (7.33-7.43) VBG pCO2 38.4 L (45-50) mmHg VBG pO2 31 L (35-45) mmHg VBG HCO3 26 (23-28) mmol/L VBG Total CO2 28 (24-29) mmol/L VBG O2 Saturation 63 L (70-75) % VBG Base Excess 2.0 (0-4) mmol/L Sodium (137-145) mmol/L Potassium (3.4-5.1) mmol/L Chloride (98-107) mmol/L Carbon Dioxide (22-32) mmol/L BUN (7-17) mg/dL Creatinine (0.52-1.04) mg/dL Estimated GFR (>60) mL/min BUN/Creatinine Ratio (6-22) Glucose (70-100) mg/dL Calcium (8.4-10.2) mg/dL Magnesium (1.6-2.3) mg/dL Total Bilirubin (0.2-1.3) mg/dL AST (14-36) IU/L ALT (<35) IU/L Alkaline Phosphatase (38-126) U/L Total Creatine Kinase (30-135) U/L CK-MB (CK-2) (<2.37) ng/mL CK-MB (CK-2) Rel Index (1.5-5.0) % Troponin I 0.169 H* (0.01-0.034) ng/mL NT-Pro-B Natriuret Pep (<125) pg/mL Total Protein (6.3-8.2) g/dL Albumin (3.5-5.0) g/dL Globulin (1.7-4.1) g/dL Albumin/Globulin Ratio (1.0-2.8) Lipase (23-300) U/L Ketones (<0.27) mmol/L SARS-CoV-2 (PCR) Negative (Negative) 11/21/22 11/21/22 11/21/22 Range/Units 21:04 23:24 23:24 WBC 6.4 (4.5-11.0) X10^3/uL RBC 4.79 (4.0-5.2) X10^6/uL Hgb 13.9 (12.0-16.0) g/dL Hct 39.9 (36-46) % MCV 83.3 (80-100) fL MCH 29.0 (26-34) PG MCHC 34.8 (30-36) % RDW 13.7 (11.6-14.8) % Plt Count 234 (150-400) X10^3/uL Neut % (Auto) 36.9 L D (50-75) % Lymph % (Auto) 48.9 H D (25-40) % [place] % (Auto) 12.8 (3-14) % Eos % (Auto) 0.5 L (2-4) % Baso % (Auto) 0.9 (0-2) % Neut # (Auto) 2400 (1831-3815) /uL Lymph # (Auto) 3100 (2893-1815) /uL [place] # (Auto) 800 (0-900) /uL Eos # (Auto) 0 (0-450) /uL Baso # (Auto) 100 (0-100) /uL PT (10.1-12.7) SECONDS INR (0.9-1.3) APTT 89 H* D (26-36) SECONDS VBG pH (7.33-7.43) VBG pCO2 (45-50) mmHg VBG pO2 (35-45) mmHg VBG HCO3 (23-28) mmol/L VBG Total CO2 (24-29) mmol/L VBG O2 Saturation (70-75) % VBG Base Excess (0-4) mmol/L Sodium 133 L (137-145) mmol/L Potassium 2.5 L* (3.4-5.1) mmol/L Chloride 97 L (98-107) mmol/L Carbon Dioxide 29 (22-32) mmol/L BUN 2 L (7-17) mg/dL Creatinine 0.41 L (0.52-1.04) mg/dL Estimated GFR > 60 (>60) mL/min BUN/Creatinine Ratio 4.9 L (6-22) Glucose 119 H (70-100) mg/dL Calcium 7.8 L (8.4-10.2) mg/dL Magnesium (1.6-2.3) mg/dL Total Bilirubin 0.8 (0.2-1.3) mg/dL AST 19 (14-36) IU/L ALT 14 (<35) IU/L Alkaline Phosphatase 62 (38-126) U/L Total Creatine Kinase (30-135) U/L CK-MB (CK-2) (<2.37) ng/mL CK-MB (CK-2) Rel Index (1.5-5.0) % Troponin I (0.01-0.034) ng/mL NT-Pro-B Natriuret Pep (<125) pg/mL Total Protein 5.6 L (6.3-8.2) g/dL Albumin 3.1 L (3.5-5.0) g/dL Globulin 2.5 (1.7-4.1) g/dL Albumin/Globulin Ratio 1.2 (1.0-2.8) Lipase (23-300) U/L Ketones (<0.27) mmol/L SARS-CoV-2 (PCR) (Negative) 11/22/22 11/22/22 11/22/22 Range/Units 02:57 02:57 09:05 WBC (4.5-11.0) X10^3/uL RBC (4.0-5.2) X10^6/uL Hgb (12.0-16.0) g/dL Hct (36-46) % MCV (80-100) fL MCH (26-34) PG MCHC (30-36) % RDW (11.6-14.8) % Plt Count (150-400) X10^3/uL Neut % (Auto) (50-75) % Lymph % (Auto) (25-40) % [place] % (Auto) (3-14) % Eos % (Auto) (2-4) % Baso % (Auto) (0-2) % Neut # (Auto) (7253-8873) /uL Lymph # (Auto) (4205-3287) /uL [place] # (Auto) (0-900) /uL Eos # (Auto) (0-450) /uL Baso # (Auto) (0-100) /uL PT (10.1-12.7) SECONDS INR (0.9-1.3) APTT 69 H D (26-36) SECONDS VBG pH (7.33-7.43) VBG pCO2 (45-50) mmHg VBG pO2 (35-45) mmHg VBG HCO3 (23-28) mmol/L VBG Total CO2 (24-29) mmol/L VBG O2 Saturation (70-75) % VBG Base Excess (0-4) mmol/L Sodium (137-145) mmol/L Potassium 2.9 L (3.4-5.1) mmol/L Chloride (98-107) mmol/L Carbon Dioxide (22-32) mmol/L BUN (7-17) mg/dL Creatinine (0.52-1.04) mg/dL Estimated GFR (>60) mL/min BUN/Creatinine Ratio (6-22) Glucose (70-100) mg/dL Calcium (8.4-10.2) mg/dL Magnesium 1.8 (1.6-2.3) mg/dL Total Bilirubin (0.2-1.3) mg/dL AST (14-36) IU/L ALT (<35) IU/L Alkaline Phosphatase (38-126) U/L Total Creatine Kinase (30-135) U/L CK-MB (CK-2) (<2.37) ng/mL CK-MB (CK-2) Rel Index (1.5-5.0) % Troponin I (0.01-0.034) ng/mL NT-Pro-B Natriuret Pep (<125) pg/mL Total Protein (6.3-8.2) g/dL Albumin (3.5-5.0) g/dL Globulin (1.7-4.1) g/dL Albumin/Globulin Ratio (1.0-2.8) Lipase (23-300) U/L Ketones (<0.27) mmol/L SARS-CoV-2 (PCR) (Negative) 11/22/22 11/22/22 11/22/22 Range/Units 09:05 10:45 16:05 WBC (4.5-11.0) X10^3/uL RBC (4.0-5.2) X10^6/uL Hgb (12.0-16.0) g/dL Hct (36-46) % MCV (80-100) fL MCH (26-34) PG MCHC (30-36) % RDW (11.6-14.8) % Plt Count (150-400) X10^3/uL Neut % (Auto) (50-75) % Lymph % (Auto) (25-40) % [place] % (Auto) (3-14) % Eos % (Auto) (2-4) % Baso % (Auto) (0-2) % Neut # (Auto) (7080-7436) /uL Lymph # (Auto) (1178-6247) /uL [place] # (Auto) (0-900) /uL Eos # (Auto) (0-450) /uL Baso # (Auto) (0-100) /uL PT (10.1-12.7) SECONDS INR (0.9-1.3) APTT 71 H 60 H D (26-36) SECONDS VBG pH (7.33-7.43) VBG pCO2 (45-50) mmHg VBG pO2 (35-45) mmHg VBG HCO3 (23-28) mmol/L VBG Total CO2 (24-29) mmol/L VBG O2 Saturation (70-75) % VBG Base Excess (0-4) mmol/L Sodium 133 L (137-145) mmol/L Potassium 3.0 L (3.4-5.1) mmol/L Chloride 97 L (98-107) mmol/L Carbon Dioxide 30 (22-32) mmol/L BUN 2 L (7-17) mg/dL Creatinine 0.43 L (0.52-1.04) mg/dL Estimated GFR > 60 (>60) mL/min BUN/Creatinine Ratio 4.7 L (6-22) Glucose 140 H (70-100) mg/dL Calcium 7.7 L (8.4-10.2) mg/dL Magnesium (1.6-2.3) mg/dL Total Bilirubin (0.2-1.3) mg/dL AST (14-36) IU/L ALT (<35) IU/L Alkaline Phosphatase (38-126) U/L Total Creatine Kinase (30-135) U/L CK-MB (CK-2) (<2.37) ng/mL CK-MB (CK-2) Rel Index (1.5-5.0) % Troponin I (0.01-0.034) ng/mL NT-Pro-B Natriuret Pep (<125) pg/mL Total Protein (6.3-8.2) g/dL Albumin (3.5-5.0) g/dL Globulin (1.7-4.1) g/dL Albumin/Globulin Ratio (1.0-2.8) Lipase (23-300) U/L Ketones (<0.27) mmol/L SARS-CoV-2 (PCR) (Negative) 11/22/22 11/23/22 11/23/22 Range/Units 21:55 04:24 04:24 WBC (4.5-11.0) X10^3/uL RBC (4.0-5.2) X10^6/uL Hgb (12.0-16.0) g/dL Hct (36-46) % MCV (80-100) fL MCH (26-34) PG MCHC (30-36) % RDW (11.6-14.8) % Plt Count (150-400) X10^3/uL Neut % (Auto) (50-75) % Lymph % (Auto) (25-40) % [place] % (Auto) (3-14) % Eos % (Auto) (2-4) % Baso % (Auto) (0-2) % Neut # (Auto) (7798-1827) /uL Lymph # (Auto) (8766-5405) /uL [place] # (Auto) (0-900) /uL Eos # (Auto) (0-450) /uL Baso # (Auto) (0-100) /uL PT (10.1-12.7) SECONDS INR (0.9-1.3) APTT 58 H 53 H (26-36) SECONDS VBG pH (7.33-7.43) VBG pCO2 (45-50) mmHg VBG pO2 (35-45) mmHg VBG HCO3 (23-28) mmol/L VBG Total CO2 (24-29) mmol/L VBG O2 Saturation (70-75) % VBG Base Excess (0-4) mmol/L Sodium 133 L (137-145) mmol/L Potassium 3.0 L (3.4-5.1) mmol/L Chloride 99 (98-107) mmol/L Carbon Dioxide 27 (22-32) mmol/L BUN 6 L (7-17) mg/dL Creatinine 0.39 L (0.52-1.04) mg/dL Estimated GFR > 60 (>60) mL/min BUN/Creatinine Ratio 15.4 (6-22) Glucose 118 H (70-100) mg/dL Calcium 8.1 L (8.4-10.2) mg/dL Magnesium (1.6-2.3) mg/dL Total Bilirubin (0.2-1.3) mg/dL AST (14-36) IU/L ALT (<35) IU/L Alkaline Phosphatase (38-126) U/L Total Creatine Kinase 30 (30-135) U/L CK-MB (CK-2) TNP (<2.37) ng/mL CK-MB (CK-2) Rel Index TNP (1.5-5.0) % Troponin I 0.031 (0.01-0.034) ng/mL NT-Pro-B Natriuret Pep (<125) pg/mL Total Protein (6.3-8.2) g/dL Albumin (3.5-5.0) g/dL Globulin (1.7-4.1) g/dL Albumin/Globulin Ratio (1.0-2.8) Lipase (23-300) U/L Ketones (<0.27) mmol/L SARS-CoV-2 (PCR) (Negative) 11/23/22 11/23/22 11/24/22 Range/Units 11:37 17:46 00:58 WBC (4.5-11.0) X10^3/uL RBC (4.0-5.2) X10^6/uL Hgb (12.0-16.0) g/dL Hct (36-46) % MCV (80-100) fL MCH (26-34) PG MCHC (30-36) % RDW (11.6-14.8) % Plt Count (150-400) X10^3/uL Neut % (Auto) (50-75) % Lymph % (Auto) (25-40) % [place] % (Auto) (3-14) % Eos % (Auto) (2-4) % Baso % (Auto) (0-2) % Neut # (Auto) (2186-1244) /uL Lymph # (Auto) (9214-2975) /uL [place] # (Auto) (0-900) /uL Eos # (Auto) (0-450) /uL Baso # (Auto) (0-100) /uL PT (10.1-12.7) SECONDS INR (0.9-1.3) APTT 73 H* D 60 H D 56 H (26-36) SECONDS VBG pH (7.33-7.43) VBG pCO2 (45-50) mmHg VBG pO2 (35-45) mmHg VBG HCO3 (23-28) mmol/L VBG Total CO2 (24-29) mmol/L VBG O2 Saturation (70-75) % VBG Base Excess (0-4) mmol/L Sodium (137-145) mmol/L Potassium (3.4-5.1) mmol/L Chloride (98-107) mmol/L Carbon Dioxide (22-32) mmol/L BUN (7-17) mg/dL Creatinine (0.52-1.04) mg/dL Estimated GFR (>60) mL/min BUN/Creatinine Ratio (6-22) Glucose (70-100) mg/dL Calcium (8.4-10.2) mg/dL Magnesium (1.6-2.3) mg/dL Total Bilirubin (0.2-1.3) mg/dL AST (14-36) IU/L ALT (<35) IU/L Alkaline Phosphatase (38-126) U/L Total Creatine Kinase (30-135) U/L CK-MB (CK-2) (<2.37) ng/mL CK-MB (CK-2) Rel Index (1.5-5.0) % Troponin I (0.01-0.034) ng/mL NT-Pro-B Natriuret Pep (<125) pg/mL Total Protein (6.3-8.2) g/dL Albumin (3.5-5.0) g/dL Globulin (1.7-4.1) g/dL Albumin/Globulin Ratio (1.0-2.8) Lipase (23-300) U/L Ketones (<0.27) mmol/L SARS-CoV-2 (PCR) (Negative) 11/24/22 11/24/22 11/24/22 Range/Units 07:07 07:07 07:07 WBC 5.2 (4.5-11.0) X10^3/uL RBC 4.38 (4.0-5.2) X10^6/uL Hgb 12.8 (12.0-16.0) g/dL Hct 37.0 (36-46) % MCV 84.6 (80-100) fL MCH 29.3 (26-34) PG MCHC 34.6 (30-36) % RDW 13.4 (11.6-14.8) % Plt Count 182 (150-400) X10^3/uL Neut % (Auto) 47.2 L (50-75) % Lymph % (Auto) 39.2 (25-40) % [place] % (Auto) 11.0 (3-14) % Eos % (Auto) 1.8 L (2-4) % Baso % (Auto) 0.8 (0-2) % Neut # (Auto) 2500 (7151-5159) /uL Lymph # (Auto) 2100 (1129-1957) /uL [place] # (Auto) 600 (0-900) /uL Eos # (Auto) 100 (0-450) /uL Baso # (Auto) 0 (0-100) /uL PT (10.1-12.7) SECONDS INR (0.9-1.3) APTT 63 H (26-36) SECONDS VBG pH (7.33-7.43) VBG pCO2 (45-50) mmHg VBG pO2 (35-45) mmHg VBG HCO3 (23-28) mmol/L VBG Total CO2 (24-29) mmol/L VBG O2 Saturation (70-75) % VBG Base Excess (0-4) mmol/L Sodium 135 L (137-145) mmol/L Potassium 3.2 L (3.4-5.1) mmol/L Chloride 101 (98-107) mmol/L Carbon Dioxide 29 (22-32) mmol/L BUN 5 L (7-17) mg/dL Creatinine 0.42 L (0.52-1.04) mg/dL Estimated GFR > 60 (>60) mL/min BUN/Creatinine Ratio 11.9 (6-22) Glucose 142 H (70-100) mg/dL Calcium 8.2 L (8.4-10.2) mg/dL Magnesium (1.6-2.3) mg/dL Total Bilirubin 0.4 (0.2-1.3) mg/dL AST 18 (14-36) IU/L ALT 19 (<35) IU/L Alkaline Phosphatase 55 (38-126) U/L Total Creatine Kinase (30-135) U/L CK-MB (CK-2) (<2.37) ng/mL CK-MB (CK-2) Rel Index (1.5-5.0) % Troponin I 0.018 (0.01-0.034) ng/mL NT-Pro-B Natriuret Pep (<125) pg/mL Total Protein 5.0 L (6.3-8.2) g/dL Albumin 2.7 L (3.5-5.0) g/dL Globulin 2.3 (1.7-4.1) g/dL Albumin/Globulin Ratio 1.2 (1.0-2.8) Lipase (23-300) U/L Ketones (<0.27) mmol/L SARS-CoV-2 (PCR) (Negative) 11/24/22 Range/Units 13:04 WBC (4.5-11.0) X10^3/uL RBC (4.0-5.2) X10^6/uL Hgb (12.0-16.0) g/dL Hct (36-46) % MCV (80-100) fL MCH (26-34) PG MCHC (30-36) % RDW (11.6-14.8) % Plt Count (150-400) X10^3/uL Neut % (Auto) (50-75) % Lymph % (Auto) (25-40) % [place] % (Auto) (3-14) % Eos % (Auto) (2-4) % Baso % (Auto) (0-2) % Neut # (Auto) (8829-5482) /uL Lymph # (Auto) (7191-2258) /uL [place] # (Auto) (0-900) /uL Eos # (Auto) (0-450) /uL Baso # (Auto) (0-100) /uL PT (10.1-12.7) SECONDS INR (0.9-1.3) APTT 29 D (26-36) SECONDS VBG pH (7.33-7.43) VBG pCO2 (45-50) mmHg VBG pO2 (35-45) mmHg VBG HCO3 (23-28) mmol/L VBG Total CO2 (24-29) mmol/L VBG O2 Saturation (70-75) % VBG Base Excess (0-4) mmol/L Sodium (137-145) mmol/L Potassium (3.4-5.1) mmol/L Chloride (98-107) mmol/L Carbon Dioxide (22-32) mmol/L BUN (7-17) mg/dL Creatinine (0.52-1.04) mg/dL Estimated GFR (>60) mL/min BUN/Creatinine Ratio (6-22) Glucose (70-100) mg/dL Calcium (8.4-10.2) mg/dL Magnesium (1.6-2.3) mg/dL Total Bilirubin (0.2-1.3) mg/dL AST (14-36) IU/L ALT (<35) IU/L Alkaline Phosphatase (38-126) U/L Total Creatine Kinase (30-135) U/L CK-MB (CK-2) (<2.37) ng/mL CK-MB (CK-2) Rel Index (1.5-5.0) % Troponin I (0.01-0.034) ng/mL NT-Pro-B Natriuret Pep (<125) pg/mL Total Protein (6.3-8.2) g/dL Albumin (3.5-5.0) g/dL Globulin (1.7-4.1) g/dL Albumin/Globulin Ratio (1.0-2.8) Lipase (23-300) U/L Ketones (<0.27) mmol/L SARS-CoV-2 (PCR) (Negative) Point of Care Testing Test Results Negative Glucose POC 199 Urine Dip Bedside Urine Glucose 100 mg/dl Bedside Urine Bilirubin - Negative Bedside Urine Ketone + 15 Urine Specific [place] 1.010 Bedside Urine Occult Blood - Negative Bedside Urine pH 7.0 Bedside Urine Protein - Negative Bedside Urine Urobilinogen - Negative Bedside Urine Nitrite - Negative Bedside Urine Leukocytes - Negative Esterase Point of care testing: Point of Care Testing Test Results Negative Glucose POC 199 Urine Dip Bedside Urine Glucose 100 mg/dl Bedside Urine Bilirubin - Negative Bedside Urine Ketone + 15 Urine Specific [place] 1.010 Bedside Urine Occult Blood - Negative Bedside Urine pH 7.0 Bedside Urine Protein - Negative Bedside Urine Urobilinogen - Negative Bedside Urine Nitrite - Negative Bedside Urine Leukocytes - Negative Esterase Imaging Data echo: Radiologist's Impression: Left ventricle ejection fraction is 60-65%. Mild anteroseptal wall hypokinesis no other obvious focal wall abnormalities No aortic valve stenosis MDM Narrative Medical decision making narrative: Patient 52-year-old female history of insulin-dependent diabetes paroxysmal atrial fibrillation presenting today with nausea vomiting and chest burning. She initially was thought to be in DKA however glucose is 177 with an anion gap of 10 and a normal pH of 7.4 so not in DKA. She is not significantly dehydrated. In fact her creatinine is 0.34 which is improved from previous. Her troponin however is found to be elevated in the positive range at 0.185 with a repeat of 0.189. She is no EKG changes remains fairly tachycardic. There is concern for possible pulmonary embolism with recent admission to the hospitalist syncopal episode and ongoing tachycardia now elevated troponins. Fortunately the CT angio does not show pulmonary embolism. 1430 Dr. Wilhelm, Cardiology was consulted in regards to patient and NSTEMI. He agrees with heparin drip beta-sanya aspirin statin, and recommends transferring patient. Patient received Protonix Zofran aspirin and fluids. She describes some burning possibly heaviness. It does not seem to be quite severe. Actually quite a bit and denial about her diagnosis of elevated troponin concerning for NSTEMI. She understands that she will need to be transferred to another facility. Echocardiogram was done today however I do have the results. Reach out to cardiology at this was not read yet. Patient signed out to Dr. Sullivan will need transfer for NSTEMI. [1800] (Nate) Patient received in sign out from [Criselda]. I have reviewed the clinical course and performed an independent history and physical exam. Currently resting comfortably in symptom-free [2330 patient remains asymptomatic but repeat labs note a critical drop in her potassium to 2.5. K riders ordered as well as repeat labs 4 3:00 a.m. which note an increase to 2.9 0645 -patient resting comfortably, no dizziness, weakness or lightheadedness. No chest pain or shortness of breath. She understands we are still working on finding placement. Patient will be signed out to Dr. Michel for final disposition 11/22 1800 (Nate) patient received back in sign-out. Still awaiting bed placement. No significant issues over the course of the day. Patient continues to be on heparin. Repeat potassium had been improved but still low at 3.0 Dr stevenson: Received turned over. Reviewed patient's history and physical and workup up to this point. Patient's troponins have now trended down to below 99th percentile. She is not having chest pain. She is still on heparin. Echocardiogram from 2 days ago does show some left wall hypokinesis but normal ejection fraction. Patient was given somewhat anxious about being here in the emergency department for extended period of time. I did have a discussion with her and her at bedside about options to include being discharged home and follow-up for cardiac catheterization versus continued to stay in the emergency department until a bed assignment can be found. I recommended that she stay here in the ER and she agreed to do so. She was given Lyrica which is 1 of her baseline medications. Care turned over to Dr. Mann to continue to observe until disposition. <Pierce Mann MD - Last Filed: 11/29/22 18:03> Lab Data Labs: Lab Results 11/21/22 11/21/22 11/21/22 Range/Units 10:05 11:05 11:05 WBC 5.5 (4.5-11.0) X10^3/uL RBC 5.23 H (4.0-5.2) X10^6/uL Hgb 15.4 (12.0-16.0) g/dL Hct 43.6 (36-46) % MCV 83.4 (80-100) fL MCH 29.4 (26-34) PG MCHC 35.2 (30-36) % RDW 13.8 (11.6-14.8) % Plt Count 227 (150-400) X10^3/uL Neut % (Auto) 69.7 (50-75) % Lymph % (Auto) 19.0 L (25-40) % [place] % (Auto) 10.6 (3-14) % Eos % (Auto) 0.3 L (2-4) % Baso % (Auto) 0.4 (0-2) % Neut # (Auto) 3800 (8601-9807) /uL Lymph # (Auto) 1000 L (2161-6530) /uL [place] # (Auto) 600 (0-900) /uL Eos # (Auto) 0 (0-450) /uL Baso # (Auto) 0 (0-100) /uL PT 11.9 (10.1-12.7) SECONDS INR 1.0 (0.9-1.3) APTT 24 L D (26-36) SECONDS VBG pH (7.33-7.43) VBG pCO2 (45-50) mmHg VBG pO2 (35-45) mmHg VBG HCO3 (23-28) mmol/L VBG Total CO2 (24-29) mmol/L VBG O2 Saturation (70-75) % VBG Base Excess (0-4) mmol/L Sodium (137-145) mmol/L Potassium (3.4-5.1) mmol/L Chloride (98-107) mmol/L Carbon Dioxide (22-32) mmol/L BUN (7-17) mg/dL Creatinine (0.52-1.04) mg/dL Estimated GFR (>60) mL/min BUN/Creatinine Ratio (6-22) Glucose (70-100) mg/dL Calcium (8.4-10.2) mg/dL Magnesium (1.6-2.3) mg/dL Total Bilirubin (0.2-1.3) mg/dL AST (14-36) IU/L ALT (<35) IU/L Alkaline Phosphatase (38-126) U/L Total Creatine Kinase (30-135) U/L CK-MB (CK-2) (<2.37) ng/mL CK-MB (CK-2) Rel Index (1.5-5.0) % Troponin I (0.01-0.034) ng/mL NT-Pro-B Natriuret Pep 1160 H (<125) pg/mL Total Protein (6.3-8.2) g/dL Albumin (3.5-5.0) g/dL Globulin (1.7-4.1) g/dL Albumin/Globulin Ratio (1.0-2.8) Lipase (23-300) U/L Ketones (<0.27) mmol/L SARS-CoV-2 (PCR) (Negative) 11/21/22 11/21/22 11/21/22 Range/Units 11:05 11:27 13:00 WBC (4.5-11.0) X10^3/uL RBC (4.0-5.2) X10^6/uL Hgb (12.0-16.0) g/dL Hct (36-46) % MCV (80-100) fL MCH (26-34) PG MCHC (30-36) % RDW (11.6-14.8) % Plt Count (150-400) X10^3/uL Neut % (Auto) (50-75) % Lymph % (Auto) (25-40) % [place] % (Auto) (3-14) % Eos % (Auto) (2-4) % Baso % (Auto) (0-2) % Neut # (Auto) (1300-4008) /uL Lymph # (Auto) (4857-1953) /uL [place] # (Auto) (0-900) /uL Eos # (Auto) (0-450) /uL Baso # (Auto) (0-100) /uL PT (10.1-12.7) SECONDS INR (0.9-1.3) APTT (26-36) SECONDS VBG pH (7.33-7.43) VBG pCO2 (45-50) mmHg VBG pO2 (35-45) mmHg VBG HCO3 (23-28) mmol/L VBG Total CO2 (24-29) mmol/L VBG O2 Saturation (70-75) % VBG Base Excess (0-4) mmol/L Sodium 130 L (137-145) mmol/L Potassium 3.4 (3.4-5.1) mmol/L Chloride 96 L (98-107) mmol/L Carbon Dioxide 24 (22-32) mmol/L BUN 5 L (7-17) mg/dL Creatinine 0.34 L (0.52-1.04) mg/dL Estimated GFR > 60 (>60) mL/min BUN/Creatinine Ratio 14.7 (6-22) Glucose 177 H (70-100) mg/dL Calcium 8.4 (8.4-10.2) mg/dL Magnesium 1.4 L (1.6-2.3) mg/dL Total Bilirubin 1.2 (0.2-1.3) mg/dL AST 29 (14-36) IU/L ALT 15 (<35) IU/L Alkaline Phosphatase 68 (38-126) U/L Total Creatine Kinase 134 113 (30-135) U/L CK-MB (CK-2) 2.03 1.82 (<2.37) ng/mL CK-MB (CK-2) Rel Index 1.5 1.6 (1.5-5.0) % Troponin I 0.185 H* 0.189 H* (0.01-0.034) ng/mL NT-Pro-B Natriuret Pep (<125) pg/mL Total Protein 7.0 (6.3-8.2) g/dL Albumin 4.0 (3.5-5.0) g/dL Globulin 3.0 (1.7-4.1) g/dL Albumin/Globulin Ratio 1.3 (1.0-2.8) Lipase 79 (23-300) U/L Ketones 0.94 H (<0.27) mmol/L SARS-CoV-2 (PCR) (Negative) 11/21/22 11/21/22 11/21/22 Range/Units 13:04 13:13 18:23 WBC (4.5-11.0) X10^3/uL RBC (4.0-5.2) X10^6/uL Hgb (12.0-16.0) g/dL Hct (36-46) % MCV (80-100) fL MCH (26-34) PG MCHC (30-36) % RDW (11.6-14.8) % Plt Count (150-400) X10^3/uL Neut % (Auto) (50-75) % Lymph % (Auto) (25-40) % [place] % (Auto) (3-14) % Eos % (Auto) (2-4) % Baso % (Auto) (0-2) % Neut # (Auto) (0502-4716) /uL Lymph # (Auto) (0497-6095) /uL [place] # (Auto) (0-900) /uL Eos # (Auto) (0-450) /uL Baso # (Auto) (0-100) /uL PT (10.1-12.7) SECONDS INR (0.9-1.3) APTT (26-36) SECONDS VBG pH 7.45 H (7.33-7.43) VBG pCO2 38.4 L (45-50) mmHg VBG pO2 31 L (35-45) mmHg VBG HCO3 26 (23-28) mmol/L VBG Total CO2 28 (24-29) mmol/L VBG O2 Saturation 63 L (70-75) % VBG Base Excess 2.0 (0-4) mmol/L Sodium (137-145) mmol/L Potassium (3.4-5.1) mmol/L Chloride (98-107) mmol/L Carbon Dioxide (22-32) mmol/L BUN (7-17) mg/dL Creatinine (0.52-1.04) mg/dL Estimated GFR (>60) mL/min BUN/Creatinine Ratio (6-22) Glucose (70-100) mg/dL Calcium (8.4-10.2) mg/dL Magnesium (1.6-2.3) mg/dL Total Bilirubin (0.2-1.3) mg/dL AST (14-36) IU/L ALT (<35) IU/L Alkaline Phosphatase (38-126) U/L Total Creatine Kinase (30-135) U/L CK-MB (CK-2) (<2.37) ng/mL CK-MB (CK-2) Rel Index (1.5-5.0) % Troponin I 0.169 H* (0.01-0.034) ng/mL NT-Pro-B Natriuret Pep (<125) pg/mL Total Protein (6.3-8.2) g/dL Albumin (3.5-5.0) g/dL Globulin (1.7-4.1) g/dL Albumin/Globulin Ratio (1.0-2.8) Lipase (23-300) U/L Ketones (<0.27) mmol/L SARS-CoV-2 (PCR) Negative (Negative) 11/21/22 11/21/22 11/21/22 Range/Units 21:04 23:24 23:24 WBC 6.4 (4.5-11.0) X10^3/uL RBC 4.79 (4.0-5.2) X10^6/uL Hgb 13.9 (12.0-16.0) g/dL Hct 39.9 (36-46) % MCV 83.3 (80-100) fL MCH 29.0 (26-34) PG MCHC 34.8 (30-36) % RDW 13.7 (11.6-14.8) % Plt Count 234 (150-400) X10^3/uL Neut % (Auto) 36.9 L D (50-75) % Lymph % (Auto) 48.9 H D (25-40) % [place] % (Auto) 12.8 (3-14) % Eos % (Auto) 0.5 L (2-4) % Baso % (Auto) 0.9 (0-2) % Neut # (Auto) 2400 (7114-5990) /uL Lymph # (Auto) 3100 (4484-9584) /uL [place] # (Auto) 800 (0-900) /uL Eos # (Auto) 0 (0-450) /uL Baso # (Auto) 100 (0-100) /uL PT (10.1-12.7) SECONDS INR (0.9-1.3) APTT 89 H* D (26-36) SECONDS VBG pH (7.33-7.43) VBG pCO2 (45-50) mmHg VBG pO2 (35-45) mmHg VBG HCO3 (23-28) mmol/L VBG Total CO2 (24-29) mmol/L VBG O2 Saturation (70-75) % VBG Base Excess (0-4) mmol/L Sodium 133 L (137-145) mmol/L Potassium 2.5 L* (3.4-5.1) mmol/L Chloride 97 L (98-107) mmol/L Carbon Dioxide 29 (22-32) mmol/L BUN 2 L (7-17) mg/dL Creatinine 0.41 L (0.52-1.04) mg/dL Estimated GFR > 60 (>60) mL/min BUN/Creatinine Ratio 4.9 L (6-22) Glucose 119 H (70-100) mg/dL Calcium 7.8 L (8.4-10.2) mg/dL Magnesium (1.6-2.3) mg/dL Total Bilirubin 0.8 (0.2-1.3) mg/dL AST 19 (14-36) IU/L ALT 14 (<35) IU/L Alkaline Phosphatase 62 (38-126) U/L Total Creatine Kinase (30-135) U/L CK-MB (CK-2) (<2.37) ng/mL CK-MB (CK-2) Rel Index (1.5-5.0) % Troponin I (0.01-0.034) ng/mL NT-Pro-B Natriuret Pep (<125) pg/mL Total Protein 5.6 L (6.3-8.2) g/dL Albumin 3.1 L (3.5-5.0) g/dL Globulin 2.5 (1.7-4.1) g/dL Albumin/Globulin Ratio 1.2 (1.0-2.8) Lipase (23-300) U/L Ketones (<0.27) mmol/L SARS-CoV-2 (PCR) (Negative) 11/22/22 11/22/22 11/22/22 Range/Units 02:57 02:57 09:05 WBC (4.5-11.0) X10^3/uL RBC (4.0-5.2) X10^6/uL Hgb (12.0-16.0) g/dL Hct (36-46) % MCV (80-100) fL MCH (26-34) PG MCHC (30-36) % RDW (11.6-14.8) % Plt Count (150-400) X10^3/uL Neut % (Auto) (50-75) % Lymph % (Auto) (25-40) % [place] % (Auto) (3-14) % Eos % (Auto) (2-4) % Baso % (Auto) (0-2) % Neut # (Auto) (1400-4229) /uL Lymph # (Auto) (6081-5432) /uL [place] # (Auto) (0-900) /uL Eos # (Auto) (0-450) /uL Baso # (Auto) (0-100) /uL PT (10.1-12.7) SECONDS INR (0.9-1.3) APTT 69 H D (26-36) SECONDS VBG pH (7.33-7.43) VBG pCO2 (45-50) mmHg VBG pO2 (35-45) mmHg VBG HCO3 (23-28) mmol/L VBG Total CO2 (24-29) mmol/L VBG O2 Saturation (70-75) % VBG Base Excess (0-4) mmol/L Sodium (137-145) mmol/L Potassium 2.9 L (3.4-5.1) mmol/L Chloride (98-107) mmol/L Carbon Dioxide (22-32) mmol/L BUN (7-17) mg/dL Creatinine (0.52-1.04) mg/dL Estimated GFR (>60) mL/min BUN/Creatinine Ratio (6-22) Glucose (70-100) mg/dL Calcium (8.4-10.2) mg/dL Magnesium 1.8 (1.6-2.3) mg/dL Total Bilirubin (0.2-1.3) mg/dL AST (14-36) IU/L ALT (<35) IU/L Alkaline Phosphatase (38-126) U/L Total Creatine Kinase (30-135) U/L CK-MB (CK-2) (<2.37) ng/mL CK-MB (CK-2) Rel Index (1.5-5.0) % Troponin I (0.01-0.034) ng/mL NT-Pro-B Natriuret Pep (<125) pg/mL Total Protein (6.3-8.2) g/dL Albumin (3.5-5.0) g/dL Globulin (1.7-4.1) g/dL Albumin/Globulin Ratio (1.0-2.8) Lipase (23-300) U/L Ketones (<0.27) mmol/L SARS-CoV-2 (PCR) (Negative) 11/22/22 11/22/22 11/22/22 Range/Units 09:05 10:45 16:05 WBC (4.5-11.0) X10^3/uL RBC (4.0-5.2) X10^6/uL Hgb (12.0-16.0) g/dL Hct (36-46) % MCV (80-100) fL MCH (26-34) PG MCHC (30-36) % RDW (11.6-14.8) % Plt Count (150-400) X10^3/uL Neut % (Auto) (50-75) % Lymph % (Auto) (25-40) % [place] % (Auto) (3-14) % Eos % (Auto) (2-4) % Baso % (Auto) (0-2) % Neut # (Auto) (9758-2345) /uL Lymph # (Auto) (6734-6804) /uL [place] # (Auto) (0-900) /uL Eos # (Auto) (0-450) /uL Baso # (Auto) (0-100) /uL PT (10.1-12.7) SECONDS INR (0.9-1.3) APTT 71 H 60 H D (26-36) SECONDS VBG pH (7.33-7.43) VBG pCO2 (45-50) mmHg VBG pO2 (35-45) mmHg VBG HCO3 (23-28) mmol/L VBG Total CO2 (24-29) mmol/L VBG O2 Saturation (70-75) % VBG Base Excess (0-4) mmol/L Sodium 133 L (137-145) mmol/L Potassium 3.0 L (3.4-5.1) mmol/L Chloride 97 L (98-107) mmol/L Carbon Dioxide 30 (22-32) mmol/L BUN 2 L (7-17) mg/dL Creatinine 0.43 L (0.52-1.04) mg/dL Estimated GFR > 60 (>60) mL/min BUN/Creatinine Ratio 4.7 L (6-22) Glucose 140 H (70-100) mg/dL Calcium 7.7 L (8.4-10.2) mg/dL Magnesium (1.6-2.3) mg/dL Total Bilirubin (0.2-1.3) mg/dL AST (14-36) IU/L ALT (<35) IU/L Alkaline Phosphatase (38-126) U/L Total Creatine Kinase (30-135) U/L CK-MB (CK-2) (<2.37) ng/mL CK-MB (CK-2) Rel Index (1.5-5.0) % Troponin I (0.01-0.034) ng/mL NT-Pro-B Natriuret Pep (<125) pg/mL Total Protein (6.3-8.2) g/dL Albumin (3.5-5.0) g/dL Globulin (1.7-4.1) g/dL Albumin/Globulin Ratio (1.0-2.8) Lipase (23-300) U/L Ketones (<0.27) mmol/L SARS-CoV-2 (PCR) (Negative) 11/22/22 11/23/22 11/23/22 Range/Units 21:55 04:24 04:24 WBC (4.5-11.0) X10^3/uL RBC (4.0-5.2) X10^6/uL Hgb (12.0-16.0) g/dL Hct (36-46) % MCV (80-100) fL MCH (26-34) PG MCHC (30-36) % RDW (11.6-14.8) % Plt Count (150-400) X10^3/uL Neut % (Auto) (50-75) % Lymph % (Auto) (25-40) % [place] % (Auto) (3-14) % Eos % (Auto) (2-4) % Baso % (Auto) (0-2) % Neut # (Auto) (9868-3554) /uL Lymph # (Auto) (5484-6799) /uL [place] # (Auto) (0-900) /uL Eos # (Auto) (0-450) /uL Baso # (Auto) (0-100) /uL PT (10.1-12.7) SECONDS INR (0.9-1.3) APTT 58 H 53 H (26-36) SECONDS VBG pH (7.33-7.43) VBG pCO2 (45-50) mmHg VBG pO2 (35-45) mmHg VBG HCO3 (23-28) mmol/L VBG Total CO2 (24-29) mmol/L VBG O2 Saturation (70-75) % VBG Base Excess (0-4) mmol/L Sodium 133 L (137-145) mmol/L Potassium 3.0 L (3.4-5.1) mmol/L Chloride 99 (98-107) mmol/L Carbon Dioxide 27 (22-32) mmol/L BUN 6 L (7-17) mg/dL Creatinine 0.39 L (0.52-1.04) mg/dL Estimated GFR > 60 (>60) mL/min BUN/Creatinine Ratio 15.4 (6-22) Glucose 118 H (70-100) mg/dL Calcium 8.1 L (8.4-10.2) mg/dL Magnesium (1.6-2.3) mg/dL Total Bilirubin (0.2-1.3) mg/dL AST (14-36) IU/L ALT (<35) IU/L Alkaline Phosphatase (38-126) U/L Total Creatine Kinase 30 (30-135) U/L CK-MB (CK-2) TNP (<2.37) ng/mL CK-MB (CK-2) Rel Index TNP (1.5-5.0) % Troponin I 0.031 (0.01-0.034) ng/mL NT-Pro-B Natriuret Pep (<125) pg/mL Total Protein (6.3-8.2) g/dL Albumin (3.5-5.0) g/dL Globulin (1.7-4.1) g/dL Albumin/Globulin Ratio (1.0-2.8) Lipase (23-300) U/L Ketones (<0.27) mmol/L SARS-CoV-2 (PCR) (Negative) 11/23/22 11/23/22 11/24/22 Range/Units 11:37 17:46 00:58 WBC (4.5-11.0) X10^3/uL RBC (4.0-5.2) X10^6/uL Hgb (12.0-16.0) g/dL Hct (36-46) % MCV (80-100) fL MCH (26-34) PG MCHC (30-36) % RDW (11.6-14.8) % Plt Count (150-400) X10^3/uL Neut % (Auto) (50-75) % Lymph % (Auto) (25-40) % [place] % (Auto) (3-14) % Eos % (Auto) (2-4) % Baso % (Auto) (0-2) % Neut # (Auto) (1796-3127) /uL Lymph # (Auto) (1759-6864) /uL [place] # (Auto) (0-900) /uL Eos # (Auto) (0-450) /uL Baso # (Auto) (0-100) /uL PT (10.1-12.7) SECONDS INR (0.9-1.3) APTT 73 H* D 60 H D 56 H (26-36) SECONDS VBG pH (7.33-7.43) VBG pCO2 (45-50) mmHg VBG pO2 (35-45) mmHg VBG HCO3 (23-28) mmol/L VBG Total CO2 (24-29) mmol/L VBG O2 Saturation (70-75) % VBG Base Excess (0-4) mmol/L Sodium (137-145) mmol/L Potassium (3.4-5.1) mmol/L Chloride (98-107) mmol/L Carbon Dioxide (22-32) mmol/L BUN (7-17) mg/dL Creatinine (0.52-1.04) mg/dL Estimated GFR (>60) mL/min BUN/Creatinine Ratio (6-22) Glucose (70-100) mg/dL Calcium (8.4-10.2) mg/dL Magnesium (1.6-2.3) mg/dL Total Bilirubin (0.2-1.3) mg/dL AST (14-36) IU/L ALT (<35) IU/L Alkaline Phosphatase (38-126) U/L Total Creatine Kinase (30-135) U/L CK-MB (CK-2) (<2.37) ng/mL CK-MB (CK-2) Rel Index (1.5-5.0) % Troponin I (0.01-0.034) ng/mL NT-Pro-B Natriuret Pep (<125) pg/mL Total Protein (6.3-8.2) g/dL Albumin (3.5-5.0) g/dL Globulin (1.7-4.1) g/dL Albumin/Globulin Ratio (1.0-2.8) Lipase (23-300) U/L Ketones (<0.27) mmol/L SARS-CoV-2 (PCR) (Negative) 11/24/22 11/24/22 11/24/22 Range/Units 07:07 07:07 07:07 WBC 5.2 (4.5-11.0) X10^3/uL RBC 4.38 (4.0-5.2) X10^6/uL Hgb 12.8 (12.0-16.0) g/dL Hct 37.0 (36-46) % MCV 84.6 (80-100) fL MCH 29.3 (26-34) PG MCHC 34.6 (30-36) % RDW 13.4 (11.6-14.8) % Plt Count 182 (150-400) X10^3/uL Neut % (Auto) 47.2 L (50-75) % Lymph % (Auto) 39.2 (25-40) % [place] % (Auto) 11.0 (3-14) % Eos % (Auto) 1.8 L (2-4) % Baso % (Auto) 0.8 (0-2) % Neut # (Auto) 2500 (2162-5781) /uL Lymph # (Auto) 2100 (8055-2226) /uL [place] # (Auto) 600 (0-900) /uL Eos # (Auto) 100 (0-450) /uL Baso # (Auto) 0 (0-100) /uL PT (10.1-12.7) SECONDS INR (0.9-1.3) APTT 63 H (26-36) SECONDS VBG pH (7.33-7.43) VBG pCO2 (45-50) mmHg VBG pO2 (35-45) mmHg VBG HCO3 (23-28) mmol/L VBG Total CO2 (24-29) mmol/L VBG O2 Saturation (70-75) % VBG Base Excess (0-4) mmol/L Sodium 135 L (137-145) mmol/L Potassium 3.2 L (3.4-5.1) mmol/L Chloride 101 (98-107) mmol/L Carbon Dioxide 29 (22-32) mmol/L BUN 5 L (7-17) mg/dL Creatinine 0.42 L (0.52-1.04) mg/dL Estimated GFR > 60 (>60) mL/min BUN/Creatinine Ratio 11.9 (6-22) Glucose 142 H (70-100) mg/dL Calcium 8.2 L (8.4-10.2) mg/dL Magnesium (1.6-2.3) mg/dL Total Bilirubin 0.4 (0.2-1.3) mg/dL AST 18 (14-36) IU/L ALT 19 (<35) IU/L Alkaline Phosphatase 55 (38-126) U/L Total Creatine Kinase (30-135) U/L CK-MB (CK-2) (<2.37) ng/mL CK-MB (CK-2) Rel Index (1.5-5.0) % Troponin I 0.018 (0.01-0.034) ng/mL NT-Pro-B Natriuret Pep (<125) pg/mL Total Protein 5.0 L (6.3-8.2) g/dL Albumin 2.7 L (3.5-5.0) g/dL Globulin 2.3 (1.7-4.1) g/dL Albumin/Globulin Ratio 1.2 (1.0-2.8) Lipase (23-300) U/L Ketones (<0.27) mmol/L SARS-CoV-2 (PCR) (Negative) 11/24/22 Range/Units 13:04 WBC (4.5-11.0) X10^3/uL RBC (4.0-5.2) X10^6/uL Hgb (12.0-16.0) g/dL Hct (36-46) % MCV (80-100) fL MCH (26-34) PG MCHC (30-36) % RDW (11.6-14.8) % Plt Count (150-400) X10^3/uL Neut % (Auto) (50-75) % Lymph % (Auto) (25-40) % [place] % (Auto) (3-14) % Eos % (Auto) (2-4) % Baso % (Auto) (0-2) % Neut # (Auto) (8661-7553) /uL Lymph # (Auto) (9962-7860) /uL [place] # (Auto) (0-900) /uL Eos # (Auto) (0-450) /uL Baso # (Auto) (0-100) /uL PT (10.1-12.7) SECONDS INR (0.9-1.3) APTT 29 D (26-36) SECONDS VBG pH (7.33-7.43) VBG pCO2 (45-50) mmHg VBG pO2 (35-45) mmHg VBG HCO3 (23-28) mmol/L VBG Total CO2 (24-29) mmol/L VBG O2 Saturation (70-75) % VBG Base Excess (0-4) mmol/L Sodium (137-145) mmol/L Potassium (3.4-5.1) mmol/L Chloride (98-107) mmol/L Carbon Dioxide (22-32) mmol/L BUN (7-17) mg/dL Creatinine (0.52-1.04) mg/dL Estimated GFR (>60) mL/min BUN/Creatinine Ratio (6-22) Glucose (70-100) mg/dL Calcium (8.4-10.2) mg/dL Magnesium (1.6-2.3) mg/dL Total Bilirubin (0.2-1.3) mg/dL AST (14-36) IU/L ALT (<35) IU/L Alkaline Phosphatase (38-126) U/L Total Creatine Kinase (30-135) U/L CK-MB (CK-2) (<2.37) ng/mL CK-MB (CK-2) Rel Index (1.5-5.0) % Troponin I (0.01-0.034) ng/mL NT-Pro-B Natriuret Pep (<125) pg/mL Total Protein (6.3-8.2) g/dL Albumin (3.5-5.0) g/dL Globulin (1.7-4.1) g/dL Albumin/Globulin Ratio (1.0-2.8) Lipase (23-300) U/L Ketones (<0.27) mmol/L SARS-CoV-2 (PCR) (Negative) Point of Care Testing Test Results Negative Glucose POC 199 Urine Dip Bedside Urine Glucose 100 mg/dl Bedside Urine Bilirubin - Negative Bedside Urine Ketone + 15 Urine Specific [place] 1.010 Bedside Urine Occult Blood - Negative Bedside Urine pH 7.0 Bedside Urine Protein - Negative Bedside Urine Urobilinogen - Negative Bedside Urine Nitrite - Negative Bedside Urine Leukocytes - Negative Esterase Point of care testing: Point of Care Testing Test Results Negative Glucose POC 199 Urine Dip Bedside Urine Glucose 100 mg/dl Bedside Urine Bilirubin - Negative Bedside Urine Ketone + 15 Urine Specific [place] 1.010 Bedside Urine Occult Blood - Negative Bedside Urine pH 7.0 Bedside Urine Protein - Negative Bedside Urine Urobilinogen - Negative Bedside Urine Nitrite - Negative Bedside Urine Leukocytes - Negative Esterase [facility] Narrative Medical decision making narrative: Patient 52-year-old female history of insulin-dependent diabetes paroxysmal atrial fibrillation presenting today with nausea vomiting and chest burning. She initially was thought to be in DKA however glucose is 177 with an anion gap of 10 and a normal pH of 7.4 so not in DKA. She is not significantly dehydrated. In fact her creatinine is 0.34 which is improved from previous. Her troponin however is found to be elevated in the positive range at 0.185 with a repeat of 0.189. She is no EKG changes remains fairly tachycardic. There is concern for possible pulmonary embolism with recent admission to the hospitalist syncopal episode and ongoing tachycardia now elevated troponins. Fortunately the CT angio does not show pulmonary embolism. 1430 Dr. Wilhelm, Cardiology was consulted in regards to patient and NSTEMI. He agrees with heparin drip beta-sanya aspirin statin, and recommends transferring patient. Patient received Protonix Zofran aspirin and fluids. She describes some burning possibly heaviness. It does not seem to be quite severe. Actually quite a bit and denial about her diagnosis of elevated troponin concerning for NSTEMI. She understands that she will need to be transferred to another facility. Echocardiogram was done today however I do have the results. Reach out to cardiology at this was not read yet. Patient signed out to Dr. Sullivan will need transfer for NSTEMI. [1800] (Nate) Patient received in sign out from [Criselda]. I have reviewed the clinical course and performed an independent history and physical exam. Currently resting comfortably in symptom-free [2330 patient remains asymptomatic but repeat labs note a critical drop in her potassium to 2.5. K riders ordered as well as repeat labs 4 3:00 a.m. which note an increase to 2.9 0645 -patient resting comfortably, no dizziness, weakness or lightheadedness. No chest pain or shortness of breath. She understands we are still working on finding placement. Patient will be signed out to Dr. Michel for final disposition 11/22 1800 (Nate) patient received back in sign-out. Still awaiting bed placement. No significant issues over the course of the day. Patient continues to be on heparin. Repeat potassium had been improved but still low at 3.0 Dr stevenson: Received turned over. Reviewed patient's history and physical and workup up to this point. Patient's troponins have now trended down to below 99th percentile. She is not having chest pain. She is still on heparin. Echocardiogram from 2 days ago does show some left wall hypokinesis but normal ejection fraction. Patient was given somewhat anxious about being here in the emergency department for extended period of time. I did have a discussion with her and her at bedside about options to include being discharged home and follow-up for cardiac catheterization versus continued to stay in the emergency department until a bed assignment can be found. I recommended that she stay here in the ER and she agreed to do so. She was given Lyrica which is 1 of her baseline medications. Care turned over to Dr. Mann to continue to observe until disposition. November 23, 2022 at 6:[address] Stevenson, patient awaiting for transfer for facility with heart catheterization capability. Patient is on heparin drip. Will need morning labs to be ordered. Home meds are already in place. November 24, 2022 at 7:[address] Aburto, no new issues or course of night. Patient remains on waiting list for transfer for facility providing heart catheterization. Morning labs and repeat troponin are pending this morning. Home meds are automated already. Patient remains on heparin. Troponin is trending downward Critical Care Time <Ny Aburto, DO - Last Filed: 11/24/22 17:36> Critical Care Time Critical Care Time: Yes Total Critical Care Time: 100 Attestation: The high probability of a clinically significant, sudden or life threatening deterioration of the [cardiovascular] system(s) required my full and direct attention, intervention and personal management. The aggregate critical care time was 100 minutes. This time is in addition to time spent performing reported procedures but includes the following: [x] Data Review and interpretation [x] Patient assessment and monitoring of vital signs [x] Documentation [x] Medication orders and management Discharge Plan Departure Patient Disposition: Home Clinical Impression: Non-ST elevation [place] (NSTEMI), Diabetes mellitus Instructions: Heart Attack in Women Activity Restrictions/Additional Instructions: *You have been diagnosed with NSTEMI *What to do: At this time you do need further cardiac evaluation and probable cardiac catheterization. Unfortunately your in the emergency department for 3 days and we tried very hard to get you to appropriate care however you did stabilize. Please take all medications as directed. If you should have any new or worsening chest discomfort arm pain jaw pain back pain nausea or any concerning symptoms please call 911 and return to the emergency department *Continue to take medications as directed --> [facility] [place] Aspirin 81 mg daily Plavix 75 mg daily Atorvastatin 80 mg at night Metoprolol 25 mg daily Lisinopril 20 mg daily *Follow up with your primary care provider in 2-3 days or call [phone] Call [facility], Dr. Culver was guard immigration today *Return to ER if you should have see above [or] any new, worsening or concerning symptoms Prescriptions: New clopidogrel [Plavix] 75 mg tablet 75 mg PO DAILY Qty: 30 0RF lisinopril 20 mg tablet 20 mg PO DAILY Qty: 30 0RF metoprolol succinate 25 mg tablet extended release 24 hr 25 mg PO DAILY Qty: 30 0RF atorvastatin 80 mg tablet 80 mg PO BEDTIME Qty: 30 0RF No Action prochlorperazine maleate [Compazine] 5 mg Tablet 5 mg PO TID PRN (Reason: Nausea) lisinopril 20 mg Tablet 20 mg PO DAILY famotidine 20 mg Tablet 20 mg PO BID metoclopramide HCl [Reglan] 5 mg Tablet 5 mg PO Q6HR PRN (Reason: Nausea) Rx Instructions: administer 30 minutes before meals aspirin [Adult Aspirin] 81 mg Tablet,Chewable 81 mg PO DAILY insulin lispro 100 unit/mL Cartridge 4 unit SUBCUT TID insulin glargine 100 unit/mL Cartridge 20 unit SUBCUT QPM Referrals: Miscellaneous,Doctor, MD [Primary Care Provider] - Stand Alone Forms: Patient Portal/API
[2022-11-21] MEDS: PANTOPRAZOLE 40 MG VIAL IV (12:31)
[2022-11-21] MEDS: ASPIRIN EC 81 MG TABLET 324 MG PO (12:31)
[2022-11-21 13:00] LABS: NT-proBNP (BNP-Adult 18+) 1160 pg/mL (<125)
[2022-11-21 13:17] LABS: PCO2 VBG 38.4 mmHg (45-50); PO2 VBG 31 mmHg (35-45); pH VBG 7.45 (7.33-7.43)
[2022-11-21 13:18] LABS: HCO3 VBG 26 mmol/L (23-28); Oxygen Saturation VBG 63 % (70-75); Total CO2 VBG 28 mmol/L (24-29)
[2022-11-21 13:20] LABS: Creatine Kinase 113 U/L (30-135)
[2022-11-21 13:35] LABS: Troponin I 0.189 ng/mL (0.01-0.034)
[2022-11-21 13:36] LABS: CKMB % Relative Index 1.6 % (1.5-5.0); Creatine Kinase MB 1.82 ng/mL (<2.37)
[2022-11-21 13:49] LABS: COVID19 -Nasal RAPID Negative (Negative)
--- NOTE | 2022-11-21 14:30 | DI.CT.S_ITS ---
PROCEDURE: CT ANGIO CHEST PE PROTOCOL INDICATIONS: recent hospital stay TECHNIQUE: After the administration of intravenous contrast, 2 mm thick sections acquired from the pulmonary apices to the posterior costophrenic angles. 3-dimensional maximum intensity projection (MIP) coronal and sagittal reformats were then acquired through the thorax. For radiation dose reduction, the following was used: automated exposure control, adjustment of mA and/or kV according to patient size. COMPARISON: None. FINDINGS: Image quality: Excellent. Pulmonary arteries: Pulmonary arteries are normal in size, and demonstrate no intraluminal filling defects to suggest central pulmonary embolism. Lungs and pleura: Subtle hazy ground-glass opacities are seen in bilateral lung pisano suggestive of mild pulmonary edema versus pneumonitis. Dependent atelectasis in posterior aspect of bilateral lung pisano are seen. No pleural effusions or pneumothorax. Central and peripheral airways are patent. Mediastinum: Heart size is normal, with small amount of pericardial effusion. No mediastinal or hilar adenopathy. Thoracic aorta is normal in caliber and enhancement. Esophagus is normal in caliber, without hiatal hernia. Bones and chest wall: No suspicious bony lesions. No acute vertebral body compression fracture. Thyroid gland is within normal limits. No axillary or supraclavicular adenopathy. Abdomen: Visualized upper abdominal solid organs appear normal in the early arterial phase of enhancement. IMPRESSION: 1. No evidence of pulmonary emboli. No thoracic aortic aneurysm or gross dissection. 2. Dependent atelectasis in posterior aspect of bilateral lung pisano. Suggestion of mild pulmonary edema versus pneumonitis. No focal infiltrate, pleural effusion or pneumothorax. 3. No mediastinal or hilar lymphadenopathy by size criteria. Small amount of pericardial effusion. Dictated by: Homero Mackay M.D. on 11/21/2022 at 15:30 Approved by: Homero Mackay M.D. on 11/21/2022 at 15:33
[2022-11-21] MEDS: HEPARIN DRIP 25,000 UNIT/500 ML IV.SOLN 20 UNIT IV (14:56)
[2022-11-21] MEDS: HEPARIN 5,000 UNIT/ML VIAL 5000 UNIT IV (14:56)
--- NOTE | 2022-11-21 15:03 | DI.ECHO.S_ITS ---
Interpretation Summary Normal left ventricle size with ejection fraction 60-65%. There is mid anteroseptal wall hypokinesis. No valvular abnormality. Procedure: A two-dimensional transthoracic echocardiogram with color flow and Doppler was performed. The study quality was technically adequate. There is no prior echocardiogram noted for this patient. The patient was in sinus tachycardia with heart rates between 106-115 bpm during the exam. Left Ventricle: The left ventricle is normal in size and wall thickness. The ejection fraction is estimated to be 60-65%. There is mid anteroseptal wall hypokinesis. There are no other obvious focal wall motion abnormalities. Diastolic function could not be accurately assessed due to tachycardia. Right Ventricle: The right ventricle is normal in size and function. Atria: The left atrial size is normal. Right atrial size is normal. There is no Doppler evidence for an interatrial shunt. Mitral Valve: The mitral valve is normal in structure and function. There is no mitral regurgitation noted. Aortic Valve: The aortic valve is trileaflet. The aortic valve opens well. There is no aortic valve stenosis. There is trace aortic regurgitation. Tricuspid Valve: The tricuspid valve is normal in structure and function. There is trace tricuspid regurgitation. Pulmonic Valve: The pulmonic valve leaflets are thin and pliable; valve motion is normal. There is no pulmonic valvular regurgitation. Great Vessels: The aortic root is normal size. The dimensions of the ascending aorta are normal. The IVC is of normal diameter and collapses greater than 50% with a sniff. This suggests a low right atrial pressure of 3 mm Hg. Pericardium/ Pleura There is no pericardial effusion. There is no pleural effusion. MMode/2D Measurements & Calculations LVIDd: 4.6 cm LVOT diam: 2.0 cm LVIDs: 3.2 cm Ao root diam: 3.1 cm FS: 31.6 % asc Aorta Diam: 3.1 cm EPSS: 0.83 cm Ao Arch Diam (Prox Trans): 3.0 cm IVSd: 0.87 cm LVPWd: 0.81 cm LV maravilla. diameter/BSA (cm/m^2): 2.4 LV sys. diameter/BSA (cm/m^2): 1.6 LA A2 area: 17.2 cm2 RA long axis: 4.8 cm LA A4 area: 15.8 cm2 RA area: 15.8 cm2 LA length (vol): 4.4 cm RA vol: 44.5 ml LA vol: 52.9 ml RA : 22.7 ml/m2 LA vol index: 27.0 ml/m2 IVC diam: 1.2 cm RVD1 (basal): 3.2 cm RVD2 (mid): 2.8 cm TAPSE: 2.5 cm Doppler Measurements & Calculations Ao V2 max: 139.2 cm/sec LVOT Max Phu: 107.7 cm/sec Ao V2 mean: 101.9 cm/sec LV V1 max P.6 mmHg Ao max P.7 mmHg LV V1 VTI: 19.2 cm Ao mean P.6 mmHg LOBO(I,D): 2.3 cm2 Ao V2 VTI: 24.9 cm LOBO(V,D): 2.3 cm2 sev ratio: 0.77 LOBO indexed to BSA (cm^2/m^2): 1.2 MV E max phu: 105.5 cm/sec PA V2 max: 108.8 cm/sec Med Peak E' Phu: 13.3 cm/sec PA V2 mean: 72.6 cm/sec E/E' med: 8.0 PA mean P.4 mmHg Lat Peak E' Phu: 13.9 cm/sec PA pr(Accel): 34.0 mmHg E/E' lat: 7.6 E/e' average: 7.8 MV dec time: 0.13 sec SV(LVOT): 58.2 ml Electronically signed by: Mil Hernandez on Reading Physician:11/21/2022 04:14 PM
[2022-11-21] MEDS: METOCLOPRAMIDE 10 MG/2 ML INJ IV (15:16)
[2022-11-21] MEDS: MAGNESIUM SULFATE 2 GM/50 ML PIGGYBACK IV (17:13)
[2022-11-21 19:04] LABS: Troponin I 0.169 ng/mL (0.01-0.034)
[2022-11-21 22:19] LABS: PTT Partial Thromboplastin Tim 89 SECONDS (26-36)
[2022-11-21 23:42] LABS: Add Manual Diff / Slide Review NO; Basophils Absolute Auto 100 /uL (0-100); Basophils Percent Auto 0.9 % (0-2); Eosinophils Absolute Auto 0 /uL (0-450); Eosinophils Percent Auto 0.5 % (2-4); Hematocrit 39.9 % (36-46); Hemoglobin 13.9 g/dL (12.0-16.0); Lymphocytes Absolute Auto 3100 /uL (1100-4500); Lymphocytes Percent Auto 48.9 % (25-40); Mean Corpuscular HGB Conc 34.8 % (30-36); Mean Corpuscular Volume 83.3 fL (80-100); Monocytes Absolute Auto 800 /uL (0-900); Monocytes Percent Auto 12.8 % (3-14); Neutrophils Absolute Auto 2400 /uL (1500-7000); Neutrophils Percent Auto 36.9 % (50-75); Platelet Count 234 X10^3/uL (150-400); Red Blood Cell Count 4.79 X10^6/uL (4.0-5.2); Red Cell Distribution Width 13.7 % (11.6-14.8); White Blood Cell Count 6.4 X10^3/uL (4.5-11.0)
[2022-11-21] MEDS: SODIUM CHLORIDE 0.9% 500 ML 1000 ML IV (23:54)
[2022-11-21 23:57] LABS: Alanine Aminotransferase 14 IU/L (<35); Albumin 3.1 g/dL (3.5-5.0); Albumin Globulin Ratio 1.2 (1.0-2.8); Alkaline Phosphatase 62 U/L (38-126); Aspartate Aminotransferase 19 IU/L (14-36); Bilirubin Total 0.8 mg/dL (0.2-1.3); Calcium 7.8 mg/dL (8.4-10.2); Carbon Dioxide 29 mmol/L (22-32); Chloride 97 mmol/L (98-107); Estimated Glomerular Filt Rate > 60 mL/min (>60); Globulin 2.5 g/dL (1.7-4.1); Glucose 119 mg/dL (70-100); HEMOLYSIS < 15 (0-50); Sodium 133 mmol/L (137-145); Total Protein 5.6 g/dL (6.3-8.2)
[2022-11-21 23:59] LABS: BUN Creatinine Ratio 4.9 (6-22); Blood Urea Nitrogen 2 mg/dL (7-17)
[2022-11-22] VITALS (113 sets, daily range): BP systolic 87–154; BP diastolic 51–88; PULSE 77–100; RESP 4–26; O2SAT 92–100
[2022-11-22] LABS: Potassium 2.5 mmol/L (3.4-5.1)
[2022-11-22] MEDS: POTASSIUM CHLORIDE IN WATER 10 MEQ/100 ML PIGGYBACK 100 MEQ IV ×4 (00:15→03:44)
[2022-11-22 03:25] LABS: HEMOLYSIS 24 (0-50); Potassium 2.9 mmol/L (3.4-5.1)
[2022-11-22 03:27] LABS: PTT Partial Thromboplastin Tim 69 SECONDS (26-36)
[2022-11-22 09:31] LABS: Calcium 7.7 mg/dL (8.4-10.2); Carbon Dioxide 30 mmol/L (22-32); Chloride 97 mmol/L (98-107); Estimated Glomerular Filt Rate > 60 mL/min (>60); Glucose 140 mg/dL (70-100); HEMOLYSIS 15 (0-50); Magnesium 1.8 mg/dL (1.6-2.3); Sodium 133 mmol/L (137-145)
[2022-11-22 09:32] LABS: BUN Creatinine Ratio 4.7 (6-22); Blood Urea Nitrogen 2 mg/dL (7-17)
[2022-11-22] MEDS: INSULIN LISPRO 100 UNIT/ML 3ML VIAL SUBCUT (09:33)
[2022-11-22] MEDS: ATORVASTATIN 20 MG TABLET 80 MG PO (09:36)
[2022-11-22] MEDS: METOPROLOL ER 25 MG TABLET PO (09:36)
[2022-11-22] MEDS: lisinopriL 20 MG TABLET PO (09:37)
[2022-11-22 11:00] LABS: PTT Partial Thromboplastin Tim 71 SECONDS (26-36)
--- NOTE | 2022-11-22 12:22 | PC.NURSE ---
Went into pt room and she was eating lunch. Diet order written for pt last night. Advised ED physician that pt was eating. No transfer/procedure scheduled for pt at this time. Will reassess diet order at shift change.
--- NOTE | 2022-11-22 12:38 | PC.NURSE ---
Family at the bedside. Pt resting comfortably. VSS, in no apparent distress.
--- NOTE | 2022-11-22 13:13 | PC.NURSE ---
RN assisted pt with bed bath, sen care, change of clothing, new linens on the bed and toothbrush/paste. Pt used the in-room toilet. She is resting quietly with eyes closed. VSS.
[2022-11-22 16:23] LABS: PTT Partial Thromboplastin Tim 60 SECONDS (26-36)
[2022-11-22] MEDS: HEPARIN DRIP 25,000 UNIT/500 ML IV.SOLN 18 UNIT IV (16:52)
[2022-11-22] MEDS: INSULIN GLARGINE 100 UNIT/ML 3ML PEN 10 UNIT SUBCUT (21:40)
[2022-11-22 22:19] LABS: PTT Partial Thromboplastin Tim 58 SECONDS (26-36)
[2022-11-23] VITALS (85 sets, daily range): BP systolic 101–143; BP diastolic 56–80; PULSE 74–88; RESP 12–24; O2SAT 94–100
[2022-11-23 04:45] LABS: PTT Partial Thromboplastin Tim 53 SECONDS (26-36)
[2022-11-23 04:46] LABS: BUN Creatinine Ratio 15.4 (6-22); Blood Urea Nitrogen 6 mg/dL (7-17); Calcium 8.1 mg/dL (8.4-10.2); Carbon Dioxide 27 mmol/L (22-32); Chloride 99 mmol/L (98-107); Creatine Kinase 30 U/L (30-135); Estimated Glomerular Filt Rate > 60 mL/min (>60); Glucose 118 mg/dL (70-100); HEMOLYSIS 25 (0-50); Sodium 133 mmol/L (137-145)
[2022-11-23 04:58] LABS: Troponin I 0.031 ng/mL (0.01-0.034)
[2022-11-23] MEDS: POTASSIUM CHLORIDE IN WATER 10 MEQ/100 ML PIGGYBACK 100 MEQ IV ×2 (08:07→10:01)
--- NOTE | 2022-11-23 08:23 | PC.NURSE ---
Pt states she had a melt down in the middle of the night. States she is going stir crazy in her room awaiting transfer for STEMI. Pt has been here 46hrs. Wants to talk with the physician about plan.
[2022-11-23] MEDS: INSULIN LISPRO 100 UNIT/ML 3ML VIAL SUBCUT ×3 (10:05→18:39)
[2022-11-23] MEDS: lisinopriL 20 MG TABLET PO (10:09)
[2022-11-23] MEDS: ATORVASTATIN 20 MG TABLET 80 MG PO (10:12)
[2022-11-23] MEDS: METOPROLOL ER 25 MG TABLET PO (10:12)
[2022-11-23 12:02] LABS: PTT Partial Thromboplastin Tim 73 SECONDS (26-36)
--- NOTE | 2022-11-23 12:28 | PC.NURSE ---
PTT adjusted from 18ml/hr to 17ml/hr (850u).
--- NOTE | 2022-11-23 12:29 | PC.NURSE ---
Pt requested an RX for pregabalin 75mg 2xday (instead of using her home script). Physician aware.
[2022-11-23] MEDS: PREGABALIN 25 MG CAPSULE 75 MG PO ×2 (13:50→21:15)
--- NOTE | 2022-11-23 16:35 | PC.NURSE ---
Pt taking a bird-bath in her room. Hospital bed placed in room, fresh linens, oral care, fresh gown and new underwear from hospital supply.
[2022-11-23 18:15] LABS: PTT Partial Thromboplastin Tim 60 SECONDS (26-36)
[2022-11-23] MEDS: HEPARIN DRIP 25,000 UNIT/500 ML IV.SOLN 18 UNIT IV (18:44)
[2022-11-23] MEDS: INSULIN GLARGINE 100 UNIT/ML 3ML PEN 10 UNIT SUBCUT (21:12)
[2022-11-24] VITALS (48 sets, daily range): BP systolic 96–147; BP diastolic 51–75; PULSE 73–86; RESP 12–36; O2SAT 96–100
[2022-11-24 01:17] LABS: PTT Partial Thromboplastin Tim 56 SECONDS (26-36)
[2022-11-24 07:32] LABS: PTT Partial Thromboplastin Tim 63 SECONDS (26-36)
[2022-11-24 07:40] LABS: Alanine Aminotransferase 19 IU/L (<35); Albumin 2.7 g/dL (3.5-5.0); Albumin Globulin Ratio 1.2 (1.0-2.8); Alkaline Phosphatase 55 U/L (38-126); Aspartate Aminotransferase 18 IU/L (14-36); BUN Creatinine Ratio 11.9 (6-22); Bilirubin Total 0.4 mg/dL (0.2-1.3); Blood Urea Nitrogen 5 mg/dL (7-17); Calcium 8.2 mg/dL (8.4-10.2); Carbon Dioxide 29 mmol/L (22-32); Chloride 101 mmol/L (98-107); Estimated Glomerular Filt Rate > 60 mL/min (>60); Globulin 2.3 g/dL (1.7-4.1); Glucose 142 mg/dL (70-100); HEMOLYSIS < 15 (0-50); Potassium 3.2 mmol/L (3.4-5.1); Sodium 135 mmol/L (137-145)
[2022-11-24 07:52] LABS: Troponin I 0.018 ng/mL (0.01-0.034)
[2022-11-24] MEDS: ATORVASTATIN 20 MG TABLET 80 MG PO (08:13)
[2022-11-24] MEDS: PREGABALIN 25 MG CAPSULE 75 MG PO (08:13)
[2022-11-24] MEDS: METOPROLOL ER 25 MG TABLET PO (08:14)
[2022-11-24] MEDS: lisinopriL 20 MG TABLET PO (08:14)
--- NOTE | 2022-11-24 08:30 | PC.NURSE ---
Heparin dose was adjusted 11/23/22 @ 1137 from 18mls/hr (900u) to 17mls/hr (850u) due to PTT value of 73. The adjustment was made on the paper Heparin parameters worksheet in the ED paper chart but was not updated in the [facility] MAR. The dosing and adjustments were performed on time and per policy by the RN, just not entered from the paper chart to the electronic chart. ED physician advised and aware.
[2022-11-24 08:49] LABS: Add Manual Diff / Slide Review NO; Basophils Absolute Auto 0 /uL (0-100); Basophils Percent Auto 0.8 % (0-2); Eosinophils Absolute Auto 100 /uL (0-450); Eosinophils Percent Auto 1.8 % (2-4); Hemoglobin 12.8 g/dL (12.0-16.0); Lymphocytes Absolute Auto 2100 /uL (1100-4500); Lymphocytes Percent Auto 39.2 % (25-40); Mean Corpuscular HGB Conc 34.6 % (30-36); Mean Corpuscular Hemoglobin 29.3 PG (26-34); Mean Corpuscular Volume 84.6 fL (80-100); Monocytes Absolute Auto 600 /uL (0-900); Neutrophils Absolute Auto 2500 /uL (1500-7000); Neutrophils Percent Auto 47.2 % (50-75); Platelet Count 182 X10^3/uL (150-400); Red Blood Cell Count 4.38 X10^6/uL (4.0-5.2); Red Cell Distribution Width 13.4 % (11.6-14.8); White Blood Cell Count 5.2 X10^3/uL (4.5-11.0)
--- NOTE | 2022-11-24 10:50 | PC.NURSE ---
Heparin drip stopped at [address] Aburto. No longer infusing this medication. Pt to receive Plavix, per Dr. Aburto.
[2022-11-24] MEDS: CLOPIDOGREL 75 MG TABLET PO (11:14)
--- NOTE | 2022-11-24 11:23 | PC.NURSE ---
Heparin DC'd. PO plavix given. Pt OOB walking around unit and to bathroom. Amb with steady gait. Plan to DC home today
[2022-11-24 13:34] LABS: PTT Partial Thromboplastin Tim 29 SECONDS (26-36)
== END 2022-11-24 16:58 | disposition home or self-care (01) ==
PROVIDERS: Emergency Medicine; Emergency Provider Emergency Medicine
DX: I21.4 Non-ST elevation (NSTEMI) myocardial infarction (principal); E11.8 Type 2 diabetes mellitus with unspecified complications; Z79.4 Long term (current) use of insulin; I48.0 Paroxysmal atrial fibrillation; Z79.82 Long term (current) use of aspirin; Z79.899 Other long term (current) drug therapy; Z20.822 Contact with and (suspected) exposure to COVID-19
CPT/HCPCS: 36415; 71275; 80048; 80053; 81003; 81025; 82009; 82550; 82553; 82805; 82962; 83690; 83735; 83880; 84132; 84484; 85025; 85610; 85730; 87635; 93005; 93010; 93306; 96361; 96365; 96366; 96368; 96372; 96375; 96376; 99285; 99291; 99292; C9803; C9113; J1644; J1815; J2405; J2765; J3475